=== PATIENT | female | born 1960 ===

== ENCOUNTER → 2020-10-06 08:47 | Outpatient (BNVA) | payer OTHER, SELFPAY | PROVIDERS: PCP Internal Medicine; Visit Provider Internal Medicine Cardiovascular Disease | DX: I49.3 Ventricular premature depolarization (principal); Z79.899 Other long term (current) drug therapy | CPT/HCPCS: 93005 ==

== ENCOUNTER 2020-10-15 13:31 | Outpatient (REF) | payer OTHER, SELFPAY ==
[2020-10-15 18:43] LABS: Estimated Average Glucose 157 mg/dL; Hemoglobin A1c % 7.1 %
== END 2020-10-15 13:32 | disposition home or self-care (01) ==
LOC: HO.MANLR 13:31
PROVIDERS: PCP Internal Medicine; Visit Provider Internal Medicine
DX: E03.9 Hypothyroidism, unspecified (principal); E11.9 Type 2 diabetes mellitus without complications
CPT/HCPCS: 83036

== ENCOUNTER 2020-11-09 12:16 | Emergency (ER) | payer OTHER, SELFPAY ==
[2020-11-09 12:19] VITALS: BP 177/88; PULSE 78; RESP 18; TEMP 36.6; O2SAT 99; BMI 27.9
--- NOTE | 2020-11-09 15:29 | ED_ITS ---
HPI - Abdominal Pain General Chief Complaint: Abdominal Pain Stated Complaint: abd pain Time Seen by Provider: 11/09/20 15:29 Source: patient Mode of arrival: ambulatory Limitations: no limitations History of Present Illness HPI narrative: yesterday she moved and felt a sharp pain. Today at work she rubbed against something and felt a sharp pain. 12 years ago had umbilical hernia MD elicited complaint: abdominal pain Onset (ago): day(s) Pain Consistency: constant Location: periumbilical and LLQ Severity: mild Exacerbating factors: movement Relieving factors: rest Related Data Home Medications Medication Instructions Recorded Confirmed aspirin 81 mg tablet,delayed 81 mg PO DAILY 10/06/20 10/06/20 release levothyroxine 50 mcg tablet 50 mcg PO DAILY 10/06/20 10/06/20 lisinopril 30 mg tablet 30 mg PO DAILY 10/06/20 10/06/20 metformin 1,000 mg tablet 1,000 mg PO BID 10/06/20 10/06/20 metoprolol succinate 50 mg 50 mg PO DAILY 10/06/20 10/06/20 tablet,extended release 24 hr omeprazole 20 mg capsule,delayed 20 mg PO DAILY 10/06/20 10/06/20 release simvastatin 40 mg tablet 40 mg PO BEDTIME 10/06/20 10/06/20 Allergies Allergy/AdvReac Type Severity Reaction Status Date / Time No Known Allergies Allergy Unverified 08/12/20 15:03 Review of Systems Constitutional: Reports no additional constitutional complaints Eyes: Reports no additional eye complaints Denies dizziness Cardiovascular: Reports no additional cardiovascular complaints Respiratory: Reports as per HPI Gastrointestinal: Reports no additional gastrointestinal complaints Genitourinary: Reports no additional female genitourinary complaints Musculoskeletal: Reports no additional musculoskeletal complaints Skin/Breast: Denies rash Reports system reviewed and no additional complaints, except as documented, Denies dizziness and Denies Sensory deficit (Neuro) Psychiatric: Denies anxiety Physical Exam Vital Signs: Vital Signs: Last Vital Signs Temp 97.9 F 11/09/20 12:19 Pulse 68 11/09/20 15:40 Resp 16 11/09/20 15:40 BP 154/71 H 11/09/20 15:40 Pulse Ox 98 11/09/20 15:40 Body Mass Index 27.9 Const: General: healthy appearing Nutritional Appearance: overweight Orientation/consciousness: oriented to person and patient oriented x3 Limitations: no limitations HENMT: Head: Yes normal to inspection Ears: external ears normal General nose exam: Normal external nose present Mouth: Normal oral and palatal mucosa present and oropharynx normal Throat: Yes posterior oropharynx normal Eyes: General: appearance normal, both eyes and all related structures Neck: Other: supple Neck: Yes normal visual inspection Chest: Chest palpation & inspection: normal inspection of the chest Resp: Auscultation: clear to auscultation bilaterally Cardio: Jugular venous distension: no JVD Rate: regular rate Rhythm: regular rhythm Heart sounds: S1 normal heart sound present and S2 normal heart sound present GI: Other: no evidence of umbilical hernia or left inguinal hernia Inspection: Yes normal to inspection Palpation (GI): Soft to palpation, nontender and No hepatosplenomegaly present Auscultation: normal bowel sounds : General: Yes no CVA tenderness Back/Spine/Pelvis: Back: no CVA tenderness Skin: General skin exam: no rashes or lesions noted Neuro: General: oriented to person and patient oriented x3 Cranial nerves: Yes CN's II-XII intact bilaterally Motor exam (neuro): 5/5 motor strength present throughout Sensory Exam: No Sensory deficit (Neuro) Extrem: General: Yes normal to inspection Psych: Appearance: grossly normal Course Course Course Narrative: impression is abdominal wall strain MDM - Abdominal Pain MDM Narrative Medical decision making narrative: history and physical most consistent with abdominal wall strain Differential Diagnosis Differential diagnosis: Likely abdominal pain and diverticulitis Differential diagnosis narrative:: umbilical hernia Discharge Plan Discharge Clinical Impression: Abdominal pain Qualifiers: Abdominal location: periumbilical Qualified Code(s): R10.33 - Periumbilical damon n Patient Disposition: Home, Self-Care Additional Instructions: rest, tylenol and motrin for abdominal wall strain Prescriptions: No Action omeprazole 20 mg capsule,delayed release(DR/EC) 20 mg PO DAILY RF: 0 levothyroxine 50 mcg tablet 50 mcg PO DAILY RF: 0 simvastatin 40 mg tablet 40 mg PO BEDTIME RF: 0 metformin 1,000 mg tablet 1,000 mg PO BID RF: 0 lisinopril 30 mg tablet 30 mg PO DAILY RF: 0 metoprolol succinate 50 mg tablet extended release 24 hr 50 mg PO DAILY RF: 0 aspirin [Adult Low Dose Aspirin] 81 mg tablet,delayed release (DR/EC) 81 mg PO DAILY RF: 0 Referrals: Chriss Mehta MD [Primary Care Provider] - 2 days Stand Alone Forms: Work/School Release [facility] Past Medical History Medical History (Updated 11/09/20 @ 16:02 by Antonio Lr MD) Hyperlipidemia Hypertension PVC (premature ventricular contraction) Surgical History (Updated 10/04/20 @ 08:42 by Laxmi Villanueva) H/O hernia repair H/O tubal ligation History of appendectomy Family History Family History (Updated 10/04/20 @ 08:43 by Laxmi Villanueva) Father No problems noted. Mother Diabetes CVD (cardiovascular disease) Social History Social History (Updated 10/06/20 @ 08:55 by Laxmi Villanueva) Smoking Status: Never smoker Use of substances other than those prescribed or required for medical reasons: No Advance Directives: No Advance Directives Information Provided: Yes
[2020-11-09 15:40] VITALS: BP 154/71; PULSE 68; RESP 16; O2SAT 98
== END 2020-11-09 16:23 | disposition home or self-care (01) ==
PROVIDERS: Emergency Provider Emergency Medicine; PCP Internal Medicine
DX: R10.33 Periumbilical pain (principal); R10.32 Left lower quadrant pain; I10 Essential (primary) hypertension; Z79.899 Other long term (current) drug therapy
CPT/HCPCS: 99283; 99284

== ENCOUNTER 2020-11-18 08:19 | Outpatient (REF) | payer OTHER, SELFPAY ==
--- NOTE | 2020-11-18 | US_ITS ---
EXAMINATION: US ABDOMEN COMPLETE CLINICAL INFORMATION: Left side pain to mid abdomen around the umbilicus. COMPARISON: CT abdomen and pelvis 05/30/2016. KUB 07/14/2015. TECHNIQUE: Real-time imaging of the abdominal viscera. FINDINGS: PANCREAS: Portions of pancreatic head and neck appear normal in size and echogenicity. There is no pancreatic ductal distention. Remainder of the pancreas obscured by bowel gas and not completely imaged. ABDOMINAL AORTA: The proximal, mid, and distal segments are normal in caliber. INFERIOR VENA CAVA: Visualized portions are normal. LIVER: The liver is borderline enlarged measuring approximately 19 cm in length. There is uniform increased hepatic parenchymal echogenicity consistent with hepatic steatosis. Liver surface is smooth. There is no focal hepatic parenchymal lesion or intrahepatic biliary ductal dilatation. GALLBLADDER: The gallbladder is distended normally. There is no wall thickening or pericholecystic fluid. A mobile stone is present in the lumen measuring approximately 1.8 cm in diameter. Sonographic negative Baker's sign. COMMON BILE DUCT: Normal in caliber measuring 0.5 cm in diameter. RIGHT KIDNEY: There is a nonobstructing calculus interpolar region measuring 0.6 cm and with twinkling artifact on color Doppler. No hydronephrosis or focal parenchymal lesions. The kidney measures 12.2 cm in maximum dimension. LEFT KIDNEY: Normal. No hydronephrosis. No renal calculi or focal parenchymal lesions. The kidney measures 11.1 cm in maximum dimension. SPLEEN: Normal. The spleen measures 8.7 cm in maximum dimension. FREE FLUID: None. US/US abdomen complete IMPRESSION: 1. Gallstone just under 2 cm. No gallbladder wall thickening or ductal dilatation. 2. Nonobstructing right renal calculus 0.6 cm. No hydronephrosis.
== END 2020-11-18 08:20 | disposition home or self-care (01) ==
LOC: HO.US 08:19
PROVIDERS: Visit Provider Physician Assistant
DX: R10.9 Unspecified abdominal pain (principal)
CPT/HCPCS: 76700

== ENCOUNTER 2020-12-08 14:52 | Outpatient (REF) | payer OTHER, SELFPAY ==
[2020-12-08 17:50] LABS: Estimated Average Glucose 151 mg/dL; Hemoglobin A1c % 6.9 %
[2020-12-08 18:07] LABS: Alanine Aminotransferase 26 U/L (0-31); Albumin Level 4.2 g/dL (3.5-5.0); Alkaline Phosphatase 82 U/L (39-117); Anion Gap 13 (12-20); Aspartate Amino Transferase 26 U/L (5-31); Bilirubin Total 0.5 mg/dL (0.0-1.0); Blood Urea Nitrogen 11 mg/dL (9-16); Calcium 9.2 mg/dL (8.4-10.2); Carbon Dioxide 27 mmol/L (22-29); Chloride 106 mmol/L (96-108); Estimated Glomerular Filt Rate > 60; Glucose Random 147 mg/dL (60-115); Potassium 4.2 mmol/l (3.3-5.1); Sodium 142 mmol/L (135-145); Total Protein 7.1 g/dL (6.5-8.0)
[2020-12-08 18:27] LABS: T4 Thyroxine 10.1 ug/dL (4.5-12.0); Thyroid Stimulating Hormone 0.98 uIU/mL (0.32-4.0)
== END 2020-12-08 14:53 | disposition home or self-care (01) ==
LOC: HO.MANLDS 14:52
PROVIDERS: PCP Internal Medicine; Visit Provider Internal Medicine
DX: E11.9 Type 2 diabetes mellitus without complications (principal); E03.9 Hypothyroidism, unspecified
CPT/HCPCS: 36415; 80053; 83036; 84436; 84443

== ENCOUNTER 2021-01-19 11:59 | Outpatient (REF) | payer OTHER, SELFPAY ==
[2021-01-19 16:16] LABS: Estimated Average Glucose 148 mg/dL; Hemoglobin A1c % 6.8 %
== END 2021-01-19 12:00 | disposition home or self-care (01) ==
LOC: HO.MANLR 11:59
PROVIDERS: PCP Internal Medicine; Visit Provider Internal Medicine
DX: E03.9 Hypothyroidism, unspecified (principal); E11.9 Type 2 diabetes mellitus without complications
CPT/HCPCS: 36415; 83036

== ENCOUNTER 2021-04-20 09:54 | Emergency (ER) | payer OTHER, SELFPAY ==
--- NOTE | ~2021-04-20 | XR_ITS ---
EXAMINATION: XR LUMBAR SPINE CLINICAL INFORMATION: Low back pain. Right hip pain. COMPARISON: Lumbar spine 10/23/2018. TECHNIQUE: 3 views lumbar spine. 2 views right hip. FINDINGS: Lumbar Spine: There is normal lumbar lordosis. The vertebral heights and alignment is normal. There is mild loss of L4-L5 disc height with posterior spondylosis. No visible acute fracture, dislocation or lytic process. The paravertebral soft tissues are normal. Incidental note is made of 2 mm radiopaque renal calculus midpole right kidney. Mild constipation. Right Hip: There is no visible acute fracture, dislocation or subluxation seen. No bony erosive changes. The soft tissues are normal. XR/XR hip RT min 2V IMPRESSION: Unremarkable right hip exam. Mild degenerative disc changes with posterior spondylosis at L4-L5 disc level. No acute fracture or lytic process. Incidental finding of a 2 mm radiopaque calculus midpole right kidney.
--- NOTE | ~2021-04-20 | XR_ITS ---
EXAMINATION: XR LUMBAR SPINE CLINICAL INFORMATION: Low back pain. Right hip pain. COMPARISON: Lumbar spine 10/23/2018. TECHNIQUE: 3 views lumbar spine. 2 views right hip. FINDINGS: Lumbar Spine: There is normal lumbar lordosis. The vertebral heights and alignment is normal. There is mild loss of L4-L5 disc height with posterior spondylosis. No visible acute fracture, dislocation or lytic process. The paravertebral soft tissues are normal. Incidental note is made of 2 mm radiopaque renal calculus midpole right kidney. Mild constipation. Right Hip: There is no visible acute fracture, dislocation or subluxation seen. No bony erosive changes. The soft tissues are normal. XR/XR lumbar spine 2-3V IMPRESSION: Unremarkable right hip exam. Mild degenerative disc changes with posterior spondylosis at L4-L5 disc level. No acute fracture or lytic process. Incidental finding of a 2 mm radiopaque calculus midpole right kidney.
[2021-04-20 10:01] VITALS: BP 180/90; PULSE 74; RESP 18; TEMP 36.7; O2SAT 96; BMI 26.6
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
[2021-04-20 10:29] VITALS: BP 125/79; RESP 17
== END 2021-04-20 11:48 | disposition home or self-care (01) ==
PROVIDERS: Emergency Provider Emergency Medicine; PCP Internal Medicine
DX: S39.012A Strain of muscle, fascia and tendon of lower back, initial encounter (principal); M25.551 Pain in right hip; X58.XXXA Exposure to other specified factors, initial encounter; Y93.9 Activity, unspecified; Y92.9 Unspecified place or not applicable; Y99.0 Civilian activity done for income or pay; Z79.899 Other long term (current) drug therapy
CPT/HCPCS: 72100; 73502; 99283

== ENCOUNTER → 2021-04-26 10:32 | Outpatient (BNVA) | payer OTHER, SELFPAY | PROVIDERS: PCP Internal Medicine; Visit Provider Internal Medicine | DX: S39.012D Strain of muscle, fascia and tendon of lower back, subsequent encounter (principal); W03.XXXD Other fall on same level due to collision with another person, subsequent encounter | CPT/HCPCS: 99203 ==

== ENCOUNTER → 2021-05-04 09:50 | Outpatient (BNVA) | payer OTHER, SELFPAY | PROVIDERS: PCP Internal Medicine; Visit Provider Physician Assistant | DX: S39.012D Strain of muscle, fascia and tendon of lower back, subsequent encounter (principal); X58.XXXD Exposure to other specified factors, subsequent encounter; M46.1 Sacroiliitis, not elsewhere classified | CPT/HCPCS: 99213 ==

== ENCOUNTER 2021-05-06 08:53 | Outpatient (REF) | payer OTHER, SELFPAY ==
--- NOTE | ~2021-05-06 | MM_ITS ---
EXAMINATION: MM SCREENING DIGITAL BREAST TOMOSYNTHESIS, BILATERAL CLINICAL INFORMATION: Screening. Asymptomatic. Remote reduction mammoplasty 2000. The lifetime risk of breast cancer based on the Tyrer-Cuzick Model is 5%. COMPARISON: Mammography: 01/30/2020, 01/24/2019, 10/27/2017 TECHNIQUE: Digital breast tomosynthesis is performed in both the craniocaudal and mediolateral oblique views along with computer-aided detection (CAD). Synthesized 2D images are generated from the tomosynthesis. FINDINGS: There are scattered areas of fibroglandular density (ACR BI-RADS breast composition Category b). Parenchymal pattern is similar to prior studies. There is minor stable scarring and scattered benign calcifications consistent with the prior reduction mammoplasty. There is no interval mass or architectural abnormality or abnormal calcifications. Biopsy clip marker again noted central anterior 6:00 right breast. The axilla and skin contours are unremarkable. MM/MM tomosynthesis screening BI IMPRESSION: No significant changes from prior exams. ASSESSMENT: BI-RADS 2: Benign RECOMMENDATION: Routine annual mammography screening. This patient's information was entered into a reminder system with a target due date for their next mammogram.
== END 2021-05-06 08:54 | disposition home or self-care (01) ==
LOC: HO.MAMMO 08:53
PROVIDERS: PCP Internal Medicine; Visit Provider Internal Medicine
DX: Z12.31 Encounter for screening mammogram for malignant neoplasm of breast (principal)
CPT/HCPCS: 77063; 77067

== ENCOUNTER 2021-05-11 09:42 | Outpatient (REF) | payer OTHER, SELFPAY ==
[2021-05-11 11:21] LABS: Estimated Average Glucose 154 mg/dL
[2021-05-11 12:00] LABS: Alanine Aminotransferase 29 U/L (0-31); Albumin Level 4.1 g/dL (3.5-5.0); Alkaline Phosphatase 85 U/L (39-117); Anion Gap 13 (12-20); Aspartate Amino Transferase 39 U/L (5-31); Bilirubin Total 0.7 mg/dL (0.0-1.0); Blood Urea Nitrogen 11 mg/dL (9-16); Calcium 9.5 mg/dL (8.4-10.2); Carbon Dioxide 25 mmol/L (22-29); Chloride 108 mmol/L (96-108); Cholesterol 162 mg/dL; Estimated Glomerular Filt Rate > 60; Glucose Fasting 143 mg/dL (60-99); HDL Cholesterol 43 mg/dL; LDL Cholesterol Calculated 86 mg/dl; Potassium 4.1 mmol/L (3.3-5.1); Sodium 142 mmol/L (135-145); Total Protein 7.2 g/dL (6.5-8.0); Triglycerides 166 mg/dL
[2021-05-11 12:23] LABS: Free T4 (Free Thyroxine) 1.26 ng/dL (0.71-1.85)
== END 2021-05-11 09:43 | disposition home or self-care (01) ==
LOC: HO.MANLDS 09:42
PROVIDERS: PCP Internal Medicine; Visit Provider Internal Medicine
DX: E11.9 Type 2 diabetes mellitus without complications (principal); E03.9 Hypothyroidism, unspecified
CPT/HCPCS: 36415; 80053; 80061; 83036; 84439; 84443

== ENCOUNTER 2021-05-23 08:00 | Outpatient (RCR) | payer OTHER, SELFPAY ==
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
--- NOTE | 2021-05-25 12:09 | MHC.PT.DC ---
[facility] [place] [facility] [place] [facility] [place] [facility] [address] Indira Morales [address] [phone] F: [phone] F: [phone] F: [phone] F: [phone] Physical Therapy Discharge Report Diagnosis: LUMBAR/SI STRAIN Date of Surgery: NA Date of Evaluation: 04/29/21 Date of Discharge: 05/25/21 Treatments to Date: 6 Cancellations to Date: No Shows to Date: Discharge Status: Achieved Goals Improved Function Independent with HEP Patient Elected to Stop Discharge Summary: AT LAST SESSION, Pt REPORTS CANCELLED HER LAST 2 SCHEDULED APPTS BECAUSE SHE IS FEELING BETTER AND BACK TO FULL DUTY. HAS MET PT GOALS (DID NOT CHECK TRUNK FLEX BUT Pt REPORTS SHE IS ABLE TO BEND MORE EASILY) MOD OSWESTRY Electronically signed by: CHRISSIE ELDER PT Please sign and return to therapist. Thank you for your referral.
== END 2021-05-25 12:40 | disposition home or self-care (01) ==
LOC: HO.PT 08:00
PROVIDERS: Visit Provider Physician Assistant
DX: S39.012D Strain of muscle, fascia and tendon of lower back, subsequent encounter (principal)
CPT/HCPCS: 97110; 97140; 97161; 97535

== ENCOUNTER 2021-05-28 11:23 | Emergency (ER) | payer OTHER, SELFPAY ==
[2021-05-28 12:27] VITALS: BP 138/77; PULSE 70; RESP 18; TEMP 36.2; O2SAT 100; BMI 27.9
--- NOTE | 2021-05-28 13:06 | ED_ITS ---
HPI - Back Pain/Injury General Chief Complaint: Back Pain/Injury Stated Complaint: back pain Time Seen by Provider: 05/28/21 13:06 History of Present Illness HPI Narrative: Patient complains of right-sided low back pain radiating to right leg, also complains of a so mild burning with urination for 2 days, she has had back pain on the right side for a month, but over past several days pain is now radiating down the leg Review of symptoms positive for back pain radiating down right leg with some dysuria Negatives are no fever no chills no dizziness no weakness no fainting no feeling faint no nausea vomiting or diarrhea no abdominal pain no pelvic pain no skin rash no incontinence no loss of sensation no muscle weakness Related Data Home Medications Medication Instructions Recorded Confirmed aspirin 81 mg tablet,delayed 81 mg PO DAILY 10/06/20 10/06/20 release levothyroxine 50 mcg tablet 50 mcg PO DAILY 10/06/20 10/06/20 lisinopril 30 mg tablet 30 mg PO DAILY 10/06/20 10/06/20 metformin 1,000 mg tablet 1,000 mg PO BID 10/06/20 10/06/20 metoprolol succinate 50 mg 50 mg PO DAILY 10/06/20 10/06/20 tablet,extended release 24 hr omeprazole 20 mg capsule,delayed 20 mg PO DAILY 10/06/20 10/06/20 release simvastatin 40 mg tablet 40 mg PO BEDTIME 10/06/20 10/06/20 Previous Rx's Medication Instructions Recorded cyclobenzaprine 10 mg PO TID PRN #10 tab 04/20/21 lidocaine [Lidoderm] 1 patch TOPICAL DAILY #15 ea 04/20/21 naproxen 500 mg PO BID PRN #20 tab 04/20/21 cyclobenzaprine 5 mg PO TID PRN #14 tab 05/28/21 lidocaine 1 patch TOPICAL DAILY PRN #15 ea 05/28/21 naproxen [Naprosyn] 500 mg PO BID PRN #20 tab 05/28/21 nitrofurantoin monohyd/m-cryst 100 mg PO Q12H 5 Days #10 cap 05/28/21 [Macrobid] oxycodone 5 mg PO Q6H PRN #10 tab 05/29/21 Allergies Allergy/AdvReac Type Severity Reaction Status Date / Time No Known Allergies Allergy Verified 05/29/21 17:21 [facility] Past Medical History Source: nursing notes reviewed Medical History Hyperlipidemia Hypertension PVC (premature ventricular contraction) Surgical History H/O hernia repair H/O tubal ligation History of appendectomy Family History Family History Father No problems noted. Mother Diabetes CVD (cardiovascular disease) Social History Social History Alcohol intake: never Physical Exam Vital Signs: Vital Signs: Last Vital Signs Temp 97.1 F 05/28/21 12:27 Pulse 70 05/28/21 12:27 Resp 18 05/28/21 12:27 BP 138/77 05/28/21 12:27 Pulse Ox 100 05/28/21 12:27 Body Mass Index 27.9 General appearance no acute distress Head is normocephalic atraumatic Neck is supple Respiratory no distress Abdomen is soft and nontender The back exam there is right lower lumbar tenderness, the skin is normal there is no CVA tenderness, there is no focal bony tenderness there is no redness rash or wound, pain is reproduced with movement Extremities full range of motion x4 Neuro no focal motor or sensory deficit MDM - Back Pain/Injury MDM Narrative Medical decision making narrative: Patient with sciatica on right side in symptoms of musculoskeletal back pain, with the complaint also of some mild dysuria with no evidence of pyelonephritis or systemic illness had a UA that is likely negative but it did show some bacteria in a contaminated specimen so patient was treated for possible urinary tract infection with Macrobid and discharged Lab Data Labs: Lab Results 05/28/21 Range/Units 13:16 Urine Color YELLOW Urine Appearance HAZY Urine pH 6.0 (5.0-8.0) Ur Specific [place] <= 1.005 (1.005-1.025) Urine Protein NEG (NEG-TRACE) MG/DL Urine Glucose (UA) NEG (NEG) MG/DL Urine Ketones NEG (NEG) MG/DL Urine Blood NEG (NEG) Urine Nitrite NEG (NEG) Ur Leukocyte Esterase 2+ H (NEG) Urine RBC 0 (0) /HPF Urine WBC 1-4 (0-4) /HPF Ur Squamous Epith Cells 2+ /LPF Urine Bacteria TRACE /LPF Discharge Plan Discharge Clinical Impression: Back pain, UTI (urinary tract infection) Patient Disposition: Home, Self-Care Additional Instructions: pain is most likely from pinched nerve in her back Urine specimen showed possibility of urinary tract infection so we are treating with Macrobid antibiotic Follow with primary doctor Return any time any change or worse condition Prescriptions: New nitrofurantoin monohyd/m-cryst [Macrobid] 100 mg capsule 100 mg PO Q12H 5 Days Qty: 10 RF: 0 naproxen [Naprosyn] 500 mg tablet 500 mg PO BID PRN (Reason: pain) Qty: 20 RF: 0 cyclobenzaprine 5 mg tablet 5 mg PO TID PRN (Reason: muscle spasm) Qty: 14 RF: 0 lidocaine 5 % adhesive patch,medicated 1 patch topical DAILY PRN (Reason: pain in back) Qty: 15 RF: 0 No Action naproxen 500 mg tablet 500 mg PO BID PRN (Reason: pain) Qty: 20 RF: 0 cyclobenzaprine 10 mg tablet 10 mg PO TID PRN (Reason: muscle spasm) Qty: 10 RF: 0 lidocaine [Lidoderm] 5 % adhesive patch,medicated 1 patch topical DAILY Qty: 15 RF: 0 oxycodone 5 mg tablet 5 mg PO Q6H PRN (Reason: pain) Qty: 10 RF: 0 omeprazole 20 mg capsule,delayed release(DR/EC) 20 mg PO DAILY RF: 0 levothyroxine 50 mcg tablet 50 mcg PO DAILY RF: 0 simvastatin 40 mg tablet 40 mg PO BEDTIME RF: 0 metformin 1,000 mg tablet 1,000 mg PO BID RF: 0 lisinopril 30 mg tablet 30 mg PO DAILY RF: 0 metoprolol succinate 50 mg tablet extended release 24 hr 50 mg PO DAILY RF: 0 aspirin [Adult Low Dose Aspirin] 81 mg tablet,delayed release (DR/EC) 81 mg PO DAILY RF: 0 Stand Alone Forms: Work/School Release Interventions: ED Discharge Assessment Last Done: 05/28/21 14:31 Discharge Date/Time: 05/28/21 14:32
[2021-05-28 13:23] LABS: Glucose Urine UA NEG (NEG); Leukocyte Esterase Urine 2+ (NEG); Nitrite Urine NEG (NEG); Specific Gravity - Urine <= 1.005 (1.005-1.025); UACC Culture Trigger YES; Urine Blood NEG (NEG); Urine Ketones NEG (NEG); Urine Protein NEG (NEG-TRACE)
[2021-05-28 13:24] LABS: Appearance Urine HAZY; Color Urine YELLOW
[2021-05-28 13:34] LABS: Bacteria Urine TRACE /LPF; RBC Urine 0 /HPF (0); Squamous Epithelial Cell Urine 2+ /LPF
[2021-05-28] MEDS: Ketorolac Tromethamine 30 MG/ML VIAL IM (14:28)
== END 2021-05-28 14:32 | disposition home or self-care (01) ==
PROVIDERS: Physician Assistant Medical; Emergency Provider Emergency Medicine Emergency Medical Services; PCP Internal Medicine
DX: M54.9 Dorsalgia, unspecified (principal); N39.0 Urinary tract infection, site not specified; I10 Essential (primary) hypertension
CPT/HCPCS: 81001; 81003; 87086; 96372; 99284; J1885

== ENCOUNTER 2021-05-29 17:16 | Emergency (ER) | payer OTHER, SELFPAY ==
--- NOTE | ~2021-05-29 | CT_ITS ---
EXAMINATION: CT LUMBAR SPINE WITHOUT CONTRAST CLINICAL INFORMATION: Thigh pain, reports thigh paresthesias. Rule out compression fracture versus disc. COMPARISON: None TECHNIQUE: Axial imaging. Sagittal and coronal reconstructions. This CT examination was performed using dose optimization techniques as appropriate, variously including the following: *Automated exposure control *Adjustment of mA and/or kV according to patient size (this includes techniques or standardized protocols for targeted exams where dose is matched to indication/reason for exam; i.e. extremities or head) *Use of iterative reconstruction technique DLP; 456 mGy-cm FINDINGS: There is normal posterior alignment without significant subluxation. Vertebral body heights are maintained. No acute fracture is seen. Disc spaces are maintained. There is mild endplate spurring at the L1, L2 vertebral bodies. Respiratory motion artifact limits evaluation of the retroperitoneum/abdomen. 2 mm right midpole renal calculus. Limited evaluation of the soft tissue/disc on CT. L1-L2: No obvious disc bulge is appreciated. L2-L3: Question posterior disc bulge in bilateral foraminal regions. No significant central canal stenosis is seen. L3-L4: Question posterior disc bulge in bilateral foraminal region. No significant central canal stenosis evident. L4-L5: Question posterior disc bulge, along with posterior endplate spurring of L4. L5-S1: Small ossification along the posterior aspect of the disc, with question of broad-based disc bulge. CT/CT lumbar spine wo con IMPRESSION: 1. No CT evidence of acute fracture. 2. Limited evaluation of the soft tissue/disc on CT. Question disc bulge at multiple levels, detailed level by level. This can be further evaluated with MRI, as clinically warranted.
[2021-05-29 17:21] VITALS: BP 181/87; PULSE 76; RESP 18; TEMP 37; O2SAT 100; BMI 27.9
--- NOTE | 2021-05-29 17:58 | ED_ITS ---
HPI - Back Pain/Injury General Chief Complaint: Back Pain/Injury Stated Complaint: Back pain Time Seen by Provider: 05/29/21 17:42 Source: patient Mode of arrival: ambulatory Limitations: no limitations History of Present Illness HPI Narrative: 61-year-old female here with complaints of right lower back pain since yesterday. The patient tells she was seen here yesterday for the same and was diagnosed with the UTI. She was sent home on Macrobid and given NSAIDs and muscle relaxants. She tells me she is taking his medications with continued pain. She does have some mild dysuria but denies any urgency, frequency, hematuria, fevers, chills, nausea, vomiting. No abdominal pain. Pain radiates from the right lower back to the right anterior thigh and is described as burning. No incontinence. Patient is ambulatory MD elicited complaint: back pain Related Data Home Medications Medication Instructions Recorded Confirmed aspirin 81 mg tablet,delayed 81 mg PO DAILY 10/06/20 10/06/20 release levothyroxine 50 mcg tablet 50 mcg PO DAILY 10/06/20 10/06/20 lisinopril 30 mg tablet 30 mg PO DAILY 10/06/20 10/06/20 metformin 1,000 mg tablet 1,000 mg PO BID 10/06/20 10/06/20 metoprolol succinate 50 mg 50 mg PO DAILY 10/06/20 10/06/20 tablet,extended release 24 hr omeprazole 20 mg capsule,delayed 20 mg PO DAILY 10/06/20 10/06/20 release simvastatin 40 mg tablet 40 mg PO BEDTIME 10/06/20 10/06/20 Previous Rx's Medication Instructions Recorded cyclobenzaprine 10 mg PO TID PRN #10 tab 04/20/21 lidocaine [Lidoderm] 1 patch TOPICAL DAILY #15 ea 04/20/21 naproxen 500 mg PO BID PRN #20 tab 04/20/21 cyclobenzaprine 5 mg PO TID PRN #14 tab 05/28/21 lidocaine 1 patch TOPICAL DAILY PRN #15 ea 05/28/21 naproxen [Naprosyn] 500 mg PO BID PRN #20 tab 05/28/21 nitrofurantoin monohyd/m-cryst 100 mg PO Q12H 5 Days #10 cap 05/28/21 [Macrobid] oxycodone 5 mg PO Q6H PRN #10 tab 05/29/21 Allergies Allergy/AdvReac Type Severity Reaction Status Date / Time No Known Allergies Allergy Verified 05/29/21 17:21 Review of Systems Review of Systems: Yes all other systems are reviewed and are negative Constitutional: Constitutional: Reports no additional constitutional complaints, Denies body ache(s), Denies chills, Denies fever(s), Denies hea dache(s) and Denies weakness Eyes: Eyes: Reports no additional eye complaints and Denies change in vision ENT: Reports system reviewed and no additional complaints, except as documented, Denies dizziness, Denies headache(s), Denies nasal congestion, Denies nasal discharge and Denies neck pain Cardiovascular: Cardiovascular: Reports no additional cardiovascular complaints, Denies chest pain, Denies leg edema and Denies dyspnea Respiratory: Respiratory: Reports no additional respiratory complaints, Denies cough and Denies dyspnea Gastrointestinal: Gastrointestinal: Reports no additional gastrointestinal complaints, Denies abdominal pain, Denies diarrhea, Denies nausea and Denies vomiting Genitourinary: Genitourinary: Reports no additional female genitourinary comp laints, Denies hematuria, Reports dysuria, Denies flank pain, Denies urinary incontinence, Denies urinary hesitancy and Denies urinary urgency Musculoskeletal: Musculoskeletal: Reports no additional musculoskeletal complaints, Reports back pain, Denies arthralgias, Denies joint swelling, Denies neck pain, Denies numbness and Denies tingling Integumentary/Breasts: Skin/Breast: Reports system reviewed and no additional complaints, except as docu and Denies rash Neurologic: Reports system reviewed and no additional complaints, except as documented, Denies Abnormal speech present, Denies dizziness, Denies headache(s), Denies numbness, Denies tingling and Denies weakness [facility] Past Medical History Attestation statement: The following information was validated with the patient. Source: old records reviewed and nursing notes reviewed Medical History Hyperlipidemia Hypertension PVC (premature ventricular contraction) Surgical History H/O hernia repair H/O tubal ligation History of appendectomy Family History Family History Father No problems noted. Mother Diabetes CVD (cardiovascular disease) Social History Social History Alcohol intake: never Smoked in Last 30 Days: No Use of substances other than those prescribed or required for medical reasons: No Advance Directives: No Advance Directives Information Provided: Yes Physical Exam Vital Signs: Vital Signs: Last Vital Signs Temp 98.6 F 05/29/21 17:21 Pulse 76 05/29/21 17:21 Resp 18 05/29/21 17:21 BP 181/87 H 05/29/21 17:21 Pulse Ox 100 05/29/21 17:21 Body Mass Index 27.9 Const: General: cooperative, healthy appearing, comfortable and no acute distress Orientation/consciousness: patient oriented x3 Limitations: no limitations HENMT: Head: Yes normal to inspection Ears: hearing grossly normal bilaterally General nose exam: Normal external nose present Face and sinus: Yes normal facial exam Mouth: Normal oral and palatal mucosa present Throat: Yes posterior oropharynx normal Eyes: General: appearance normal, both eyes and all related structures Pupils: Equal, round and reactive pupils present Neck: Neck: Yes normal visual inspection Chest: Chest palpation & inspection: normal inspection of the chest Resp: Effort & Inspection: normal respiratory effort Auscultation: clear to auscultation bilaterally Cardio: Rate: regular rate Rhythm: regular rhythm Peripheral pulses: Peripheral pulses 2+ throughout GI: Inspection: Yes normal to inspection Palpation (GI): Soft to palpation and nontender Auscultation: normal bowel sounds : General: Yes no CVA tenderness Back/Spine/Pelvis: Other: pain with straight leg raise of the right leg Back: no CVA tenderness Thoracic/Lumbar Spine: thoracic and lumbar spine normal to inspection Sacroiliac joints: on the right tender to palpation, by compression of iliac crest and by passive hyperextension of lower ext Skin: General skin exam: no rashes or lesions noted Neuro: General: patient oriented x3, no focal motor deficits and normal sensation to monofilament Cranial nerves: Yes CN's II-XII intact bilaterally, Yes Equal, round and reactive pupils present, Yes Bilaterally intact EOM present, Yes Nystagmus not present, Yes Normal facial strength present, Yes Midline tongue present and Yes Normal gag reflex present Cognition (Neuro): normal cognition Speech: No Abnormal speech present Gait exam (Neuro): Normal gait present Motor exam (neuro): 5/5 motor strength present throughout Sensory Exam: Normal double simultaneous stimulation for sensation Deep tendon reflexes (DTR's): Right patellar reflex intensity grade: 2+ and Left p atellar reflex intensity grade: 2+ Extrem: General: Yes normal to inspection Course Course Course Narrative: 61-year-old female here with complaints of continued right lower back pain greater than 24 hours despite starting antibiotics for presumed UTI and taking NSAIDs and muscle relaxants. On exam the patient has right lumbar tenderness over the right SI joint with referred pain in the right anterior thigh. Worsened with straight leg raise. No midline tenderness, step-offs or deformities. Reflexes are intact. urine culture reviewed from yesterday and negative. Will repeat UA, provide analgesia. -UA negative. No neuro deficits or red flag symptoms. Patient ambulatory. Will check labs, CT lumbar spine. . No CT evidence of acute fracture. 2. Limited evaluation of the soft tissue/disc on CT. Question disc bulge at multiple levels, detailed level by level. This can be further evaluated with MRI, as clinically warranted. likely bulging disc of L3-L4 based on dermatome. Pain is improved with Toradol and oxycodone here. Patient is ambulatory to the bathroom with no assistance. She tells me in January of this year she had a work-related back injury and followed up with [facility]. She did complete physical therapy on May 06 and was feeling improved until this most recent pain. No new reports of a new injury at work. Will have her follow up with [facility] however reviewed worrisome signs and symptoms such as incontinence, progressive weakness or paresthesias. And when to return to the emergency department. Comfortable discharge home. MDM - Back Pain/Injury Differential Diagnosis Differential diagnosis: Likely lumbar radiculopathy, strain of lumbar region, renal colic and pyelonephritis Medical Records Attestation: I reviewed the patient's medical records. Lab Data Attestation: I reviewed the patient's lab results. Result diagrams: 05/29/21 18:31 05/29/21 18:31 Labs: Lab Results 05/29/21 05/29/21 05/29/21 Range/Units 18:02 18:31 18:31 WBC 9.5 (4.8-10.8) X10*3/uL RBC 4.51 (4.20-5.50) X10*6/uL Hgb 13.8 (12.0-16.0) g/dl Hct 41.5 (37-47) % MCV 92.0 (80-98) fL MCH 30.6 (27.0-33.0) pg MCHC 33.3 (31.0-35.0) g/dl RDW 12.7 (11.0-16.0) % Plt Count 253 (160-400) X10*3/uL MPV 11.1 (9.4-12.3) fL Immature Gran % (Auto) 0.2 (0.0-0.4) % Neut % (Auto) 62.1 (45-73) % Lymph % (Auto) 29.9 (20-40) % [place] % (Auto) 6.1 (2-11) % Eos % (Auto) 1.2 (0-4) % Baso % (Auto) 0.5 (0-2) % Lymph # (Auto) 2.8 (1.2-4.9) X10*3/uL [place] # (Auto) 0.6 (0.1-1.2) X10*3/uL Eos # (Auto) 0.1 (0.0-0.4) X10*3/uL Baso # (Auto) 0.1 (0.0-0.2) X10*3/uL Abs Immat Gran (auto) 0.02 (0.00-0.03) X10*3/uL Absolute Neuts (auto) 5.9 (2.0-8.3) X10*3/uL Absolute Nucleated RBC 0.000 (0.0-0.012) X10*3/uL Nucleated RBC % (auto) 0.0 (0.0-0.2) /100WBC Sodium 143 (135-145) mmol/L Potassium 4.3 (3.3-5.1) mmol/L Chloride 108 (96-108) mmol/L Carbon Dioxide 23 (22-29) mmol/L Anion Gap 16 (12-20) BUN 10 (9-16) mg/dL Creatinine 0.77 (0.5-1.4) mg/dL Estim Creat Clear Calc 80.3 Estimated GFR > 60 Random Glucose 111 (60-115) mg/dL Calcium 10.2 D (8.4-10.2) mg/dL Urine Color YELLOW Urine Appearance CLEAR Urine pH 6.0 (5.0-8.0) Ur Specific [place] 1.025 (1.005-1.025) Urine Protein NEG (NEG-TRACE) MG/DL Urine Glucose (UA) NEG (NEG) MG/DL Urine Ketones NEG (NEG) MG/DL Urine Blood NEG (NEG) Urine Nitrite NEG (NEG) Ur Leukocyte Esterase NEG (NEG) Discharge Plan Discharge Clinical Impression: Strain of lumbar region Patient Disposition: Home, Self-Care Instructions: Low Back Strain (ED), Lower Back Exercises (ED), Core Strengthening Exercises (ED) Additional Instructions: heat or ice gentle stretching follow-up with your primary care doctor on Sunday no heavy lifting or bending Continue flexeril, naproxen, lidoderm patches. You may take the oxycodone for stronger pain unrelieved with these meds. Your CT scan shows multiple bulging discs in your lumbar spine. Follow-up with [facility] Sunday. Prescriptions: New oxycodone 5 mg tablet 5 mg PO Q6H PRN (Reason: pain) Qty: 10 RF: 0 No Action naproxen 500 mg tablet 500 mg PO BID PRN (Reason: pain) Qty: 20 RF: 0 cyclobenzaprine 10 mg tablet 10 mg PO TID PRN (Reason: muscle spasm) Qty: 10 RF: 0 lidocaine [Lidoderm] 5 % adhesive patch,medicated 1 patch topical DAILY Qty: 15 RF: 0 nitrofurantoin monohyd/m-cryst [Macrobid] 100 mg capsule 100 mg PO Q12H 5 Days Qty: 10 RF: 0 naproxen [Naprosyn] 500 mg tablet 500 mg PO BID PRN (Reason: pain) Qty: 20 RF: 0 cyclobenzaprine 5 mg tablet 5 mg PO TID PRN (Reason: muscle spasm) Qty: 14 RF: 0 lidocaine 5 % adhesive patch,medicated 1 patch topical DAILY PRN (Reason: pain in back) Qty: 15 RF: 0 omeprazole 20 mg capsule,delayed release(DR/EC) 20 mg PO DAILY RF: 0 levothyroxine 50 mcg tablet 50 mcg PO DAILY RF: 0 simvastatin 40 mg tablet 40 mg PO BEDTIME RF: 0 metformin 1,000 mg tablet 1,000 mg PO BID RF: 0 lisinopril 30 mg tablet 30 mg PO DAILY RF: 0 metoprolol succinate 50 mg tablet extended release 24 hr 50 mg PO DAILY RF: 0 aspirin [Adult Low Dose Aspirin] 81 mg tablet,delayed release (DR/EC) 81 mg PO DAILY RF: 0 Referrals: Chriss Mehta MD [Primary Care Provider] - 2 days Stand Alone Forms: Work/School Release
[2021-05-29 18:07] LABS: Glucose Urine UA NEG (NEG); Leukocyte Esterase Urine NEG (NEG); Nitrite Urine NEG (NEG); Specific Gravity - Urine 1.025 (1.005-1.025); Urine Blood NEG (NEG); Urine Ketones NEG (NEG); Urine Protein NEG (NEG-TRACE)
[2021-05-29 18:08] LABS: Appearance Urine CLEAR; Color Urine YELLOW
[2021-05-29] MEDS: Ketorolac Tromethamine 60 MG/2 ML VIAL IM (18:19)
[2021-05-29] MEDS: oxyCODONE HCl Immed Release 5 MG TABLET PO (18:20)
[2021-05-29 18:35] LABS: MANUAL DIFF FLAG NO
[2021-05-29 18:37] LABS: Basophils Absolute Auto 0.1 X10*3/uL (0.0-0.2); Basophils Percent Auto 0.5 % (0-2); Eosinophils Absolute Auto 0.1 X10*3/uL (0.0-0.4); Eosinophils Percent Auto 1.2 % (0-4); Hematocrit 41.5 % (37-47); Hemoglobin 13.8 g/dl (12.0-16.0); Imm Gran Abs Auto 0.02 X10*3/uL (0.00-0.03); Imm Gran Pct Auto 0.2 % (0.0-0.4); Lymphocytes Absolute Auto 2.8 X10*3/uL (1.2-4.9); Lymphocytes Percent Auto 29.9 % (20-40); Mean Corpuscular HGB Conc 33.3 g/dl (31.0-35.0); Mean Corpuscular Hemoglobin 30.6 pg (27.0-33.0); Mean Platelet Volume 11.1 fL (9.4-12.3); Monocytes Absolute Auto 0.6 X10*3/uL (0.1-1.2); Monocytes Percent Auto 6.1 % (2-11); Neutrophils Absolute Auto 5.9 X10*3/uL (2.0-8.3); Neutrophils Percent Auto 62.1 % (45-73); Platelet Count 253 X10*3/uL (160-400); Red Blood Count 4.51 X10*6/uL (4.20-5.50); Red Cell Distribution Width 12.7 % (11.0-16.0); White Blood Count 9.5 X10*3/uL (4.8-10.8)
[2021-05-29 19:09] LABS: Anion Gap 16 (12-20); Blood Urea Nitrogen 10 mg/dL (9-16); Calcium 10.2 mg/dL (8.4-10.2); Carbon Dioxide 23 mmol/L (22-29); Chloride 108 mmol/L (96-108); Creatinine Clr Calc Pharmacy 80.3; Estimated Glomerular Filt Rate > 60; Glucose Random 111 mg/dL (60-115); Potassium 4.3 mmol/L (3.3-5.1); Sodium 143 mmol/L (135-145)
== END 2021-05-29 21:06 | disposition home or self-care (01) ==
PROVIDERS: Emergency Medicine; Nurse Practitioner Family; Emergency Provider Internal Medicine; PCP Internal Medicine
DX: S39.012A Strain of muscle, fascia and tendon of lower back, initial encounter (principal); N39.0 Urinary tract infection, site not specified; I10 Essential (primary) hypertension; X58.XXXA Exposure to other specified factors, initial encounter; Y93.9 Activity, unspecified; Y92.9 Unspecified place or not applicable; Y99.9 Unspecified external cause status
CPT/HCPCS: 36415; 72131; 80048; 81003; 85025; 96372; 99284; J1885

== ENCOUNTER → 2021-06-01 09:05 | Outpatient (BNVA) | payer OTHER, SELFPAY | PROVIDERS: PCP Internal Medicine; Visit Provider Physician Assistant | DX: M54.41 Lumbago with sciatica, right side (principal) | CPT/HCPCS: 99214 ==

== ENCOUNTER → 2021-06-06 10:59 | Outpatient (BNVA) | payer OTHER, SELFPAY | PROVIDERS: PCP Internal Medicine; Visit Provider Internal Medicine | DX: M54.41 Lumbago with sciatica, right side (principal) | CPT/HCPCS: 99213 ==

== ENCOUNTER 2021-06-10 07:15 | Outpatient (REF) | payer OTHER, SELFPAY ==
--- NOTE | ~2021-06-10 | MR_ITS ---
EXAMINATION: MR LUMBAR SPINE WITHOUT CONTRAST CLINICAL INFORMATION: Twisted back, return right-sided radicular symptoms. COMPARISON: Lumbar spine radiograph 04/20/2021. TECHNIQUE: MRI of the lumbar spine was obtained using routine sequences without contrast. FINDINGS: VERTEBRAL BODIES AND PARASPINAL STRUCTURES: 5 lumbar type vertebral bodies are present and are normal in height and alignment. Minimal multilevel endplate discogenic marrow signal changes are noted along with mild multilevel endplate osteophytosis with visualized thoracic and lumbar spine. CONUS MEDULLARIS AND CAUDA EQUINA: Normal, terminating at the level of L1-L2. SPINAL LEVELS: L1-L2: No central foraminal stenoses. Minimal bilateral ligamentum flavum hypertrophy. Normal intervertebral disc height. Minimal anterior broad-based disc-osteophyte complex. L2-L3: Right parasagittal and intraforaminal disc protrusion and overlying herniated subligamentous disc extrusion with cranial extension into the right L2 lateral recess with right L2 nerve root impingement. A moderate right parasagittal intraforaminal disc protrusion is present with annular T2 hyperintensity likely representing an annular fissure. Findings are present in association with a mild right lateral disc bulge. Furthermore, a herniated disc extrusion overlies the right parasagittal intraforaminal protrusion and demonstrates a 12 mm cranial subligamentous extension (series 2 image 9, series 6 image 7). The extrusion results in direct right L2 nerve root impingement. Furthermore, the intraforaminal component of the disc protrusion results in mild right L2 dorsal root ganglion impingement. Additionally, mild bilateral ligamentum flavum hypertrophy is present. Intervertebral disc demonstrates overall normal height. L3-L4: Minimal bilateral intraforaminal disc protrusions without associated direct nerve root impingement. Mild bilateral ligamentum flavum hypertrophy. No significant central or foraminal stenoses. L4-L5: Mild central stenosis. Mild bilateral foraminal stenoses. Mild posterior broad-based disc bulge with bilateral intraforaminal extension resulting in mild (less than 50%) bilateral foraminal stenoses without associated nerve root impingement. Marked bilateral ligamentum flavum hypertrophy is present, which in combination with a broad-based disc bulge results in mild concentric thecal sac narrowing. Mild bilateral subarticular recess narrowing is present with mild abutment upon the traversing left and right L5 nerve roots. (Series 6 image 20). L5-S1: No significant central or foraminal stenoses. Minimal central disc protrusion minimally effacing the adjacent ventral thecal sac CSF space without associated direct nerve root impingement. MR/MR lumbar spine wo con IMPRESSION: L2-L3 right parasagittal and intraforaminal disc protrusion with an overlying herniated disc extrusion demonstrating 13 mm cranial extension into the L2 right lateral recess resulting in direct right L2 nerve root impingement. Furthermore, the disc protrusion additionally results in mild right L2 dorsal root ganglion impingement. Elsewhere in the lumbar spine, mild multilevel chronic spondylosis is noted without associated direct nerve root impingement or marked central or foraminal stenoses.
== END 2021-06-10 07:16 | disposition home or self-care (01) ==
LOC: HO.MRI 07:15
PROVIDERS: PCP Internal Medicine; Visit Provider Internal Medicine
DX: M54.5 Low back pain (principal)
CPT/HCPCS: 72148

== ENCOUNTER → 2021-06-13 09:41 | Outpatient (BNVA) | payer OTHER, SELFPAY | PROVIDERS: PCP Internal Medicine; Visit Provider Physician Assistant | DX: M51.26 Other intervertebral disc displacement, lumbar region (principal) | CPT/HCPCS: 99214 ==

== ENCOUNTER 2021-09-14 12:02 | Outpatient (REF) | payer OTHER, SELFPAY ==
[2021-09-14 13:18] LABS: Estimated Average Glucose 157 mg/dL; Hemoglobin A1c % 7.1 %
== END 2021-09-14 12:03 | disposition home or self-care (01) ==
LOC: HO.MANLDS 12:02
PROVIDERS: PCP Internal Medicine; Visit Provider Internal Medicine
DX: E11.9 Type 2 diabetes mellitus without complications (principal); E03.9 Hypothyroidism, unspecified
CPT/HCPCS: 36415; 83036

== ENCOUNTER → 2021-10-17 08:58 | Outpatient (BNVA) | payer OTHER, SELFPAY | PROVIDERS: PCP Internal Medicine; Visit Provider Internal Medicine Cardiovascular Disease | DX: I49.3 Ventricular premature depolarization (principal) | CPT/HCPCS: 93005 ==

== ENCOUNTER 2022-01-30 11:40 | Outpatient (REF) | payer OTHER, SELFPAY ==
[2022-01-30 14:10] LABS: Cholesterol 157 mg/dL; HDL Cholesterol 49 mg/dL; LDL Cholesterol Calculated 83 mg/dl; Triglycerides 128 mg/dL
[2022-01-31 04:20] LABS: Estimated Average Glucose 166 mg/dL; Hemoglobin A1c % 7.4 %
== END 2022-01-30 11:41 | disposition home or self-care (01) ==
LOC: HO.MANLDS 11:40
PROVIDERS: PCP Internal Medicine; Visit Provider Internal Medicine
DX: E11.9 Type 2 diabetes mellitus without complications (principal); E78.00 Pure hypercholesterolemia, unspecified
CPT/HCPCS: 36415; 80061; 83036

== ENCOUNTER 2022-02-04 21:24 | Emergency (ER) | payer OTHER, SELFPAY ==
--- NOTE | ~2022-02-04 | XR_ITS ---
EXAMINATION: PORTABLE CHEST 1 VIEW CLINICAL INFORMATION: CP . COMPARISON: 04/04/2019. TECHNIQUE: Portable frontal view of the chest was obtained. FINDINGS: The lungs are well expanded. No focal infiltrate, effusion, edema, or pneumothorax. Cardiac and mediastinal silhouettes are within normal limits for technique. No acute bony abnormality seen. XR/XR chest 1V IMPRESSION: No evidence of acute disease.
--- NOTE | 2022-02-04 21:28 | ECG_ITS ---
Test Reason : CP Blood Pressure : / mmHG Vent. Rate : 063 BPM Atrial Rate : 063 BPM P-R Int : 144 ms QRS Dur : 092 ms QT Int : 396 ms P-R-T Axes : 048 003 042 degrees QTc Int : 405 ms Normal sinus rhythm Normal ECG When compared with ECG of 04-APR-2019 01:32, Vent. rate has decreased BY 38 BPM QT has shortened Referred By: Generic ED Physician Electronically Signed By:LISANDRA DIAZ MD
[2022-02-04 21:39] VITALS: BP 174/85; PULSE 66; RESP 18; TEMP 36.6; O2SAT 97; BMI 28.4
[2022-02-04 22:05] LABS: MANUAL DIFF FLAG NO
[2022-02-04 22:07] LABS: Basophils Absolute Auto 0.1 X10*3/uL (0.0-0.2); Eosinophils Absolute Auto 0.2 X10*3/uL (0.0-0.4); Eosinophils Percent Auto 2.3 % (0-4); Hematocrit 42.6 % (37.0-47.0); Hemoglobin 13.8 g/dl (12.0-16.0); Imm Gran Abs Auto 0.03 X10*3/uL (0.00-0.03); Imm Gran Pct Auto 0.3 % (0.0-0.4); Lymphocytes Absolute Auto 4.2 X10*3/uL (1.2-4.9); Lymphocytes Percent Auto 42.2 % (20-40); Mean Corpuscular HGB Conc 32.4 g/dl (31.0-35.0); Mean Corpuscular Hemoglobin 30.4 pg (27.0-33.0); Mean Corpuscular Volume 93.8 fL (80.0-98.0); Mean Platelet Volume 11.1 fL (9.4-12.3); Monocytes Absolute Auto 0.7 X10*3/uL (0.1-1.2); Monocytes Percent Auto 7.3 % (2-11); Neutrophils Absolute Auto 4.7 x10*3/uL (2.0-8.3); Neutrophils Percent Auto 46.9 % (45-73); Platelet Count 266 X10*3/uL (160-400); Red Blood Count 4.54 X10*6/uL (4.20-5.50); Red Cell Distribution Width 12.5 % (11.0-16.0)
[2022-02-04 22:19] LABS: Anion Gap 12 (12-20); Blood Urea Nitrogen 15 mg/dL (9-16); Carbon Dioxide 26 mmol/L (22-29); Chloride 105 mmol/L (96-108); Creatinine Clr Calc Pharmacy 80.8; Estimated Glomerular Filt Rate > 60; Glucose Random 125 mg/dL (60-115); Sodium 139 mmol/L (135-145)
[2022-02-04 22:30] LABS: Troponin-I High Sensitivity 5.8 ng/L (<3.5-17.0)
--- NOTE | 2022-02-04 22:44 | ED.CHESTPAIN ---
HPI - Chest Pain General Chief Complaint: Chest Pain Stated Complaint: chest pain radiates to shoulder Time Seen by Provider: 02/04/22 22:41 History of Present Illness HPI narrative: 61 years old presents today with having chest pain that is mid chest on the left side goes to the arm. Has a history of diabetes, hypertension, high cholesterol. The pain lasts for approximately 5 minutes is no specific trigger there is no shortness of breath there is no diaphoresis it goes away and then there is nonspecific recurrence of this pain. Patient denies any fever chills. No coughing congestion upper respiratory symptoms. No focal weakness. Patient from home. Related Data Home Medications Medication Instructions Recorded Confirmed aspirin 81 mg tablet,delayed 81 mg PO DAILY 10/06/20 10/17/21 release (Adult Low Dose Aspirin) levothyroxine 50 mcg tablet 50 mcg PO DAILY 10/06/20 10/17/21 lisinopril 30 mg tablet 30 mg PO DAILY 10/06/20 10/17/21 metformin 1,000 mg tablet 1,000 mg PO BID 10/06/20 10/17/21 metoprolol succinate 50 mg 50 mg PO DAILY 10/06/20 10/17/21 tablet,extended release 24 hr omeprazole 20 mg capsule,delayed 20 mg PO DAILY 10/06/20 10/17/21 release simvastatin 40 mg tablet 40 mg PO BEDTIME 10/06/20 10/17/21 Previous Rx's Medication Instructions Recorded cyclobenzaprine 10 mg tablet 10 mg PO TID PRN #10 tab 04/20/21 lidocaine 5 % topical patch 1 patch TOPICAL DAILY #15 ea 04/20/21 (Lidoderm) naproxen 500 mg tablet 500 mg PO BID PRN #20 tab 04/20/21 cyclobenzaprine 5 mg tablet 5 mg PO TID PRN #14 tab 05/28/21 lidocaine 5 % topical patch 1 patch TOPICAL DAILY PRN #15 ea 05/28/21 naproxen 500 mg tablet (Naprosyn) 500 mg PO BID PRN #20 tab 05/28/21 nitrofurantoin 100 mg PO Q12H 5 Days #10 cap 05/28/21 monohydrate/macrocrystals 100 mg capsule (Macrobid) oxycodone 5 mg tablet 5 mg PO Q6H PRN #10 tab 05/29/21 Allergies Allergy/AdvReac Type Severity Reaction Status Date / Time No Known Allergies Allergy Verified 10/17/21 09:13 Review of Systems Review of Systems: Positive chest pain no shortness of breath no diaphoresis Yes all other systems are reviewed and are negative FOR[facility]LY [facility] Past Medical History Attestation statement: The following information was validated with the patient. Medical History Hyperlipidemia Hypertension PVC (premature ventricular contraction) Surgical History H/O hernia repair H/O tubal ligation History of appendectomy Family History Family History Father No problems noted. Mother Diabetes CVD (cardiovascular disease) Social History Social History Alcohol intake: never Patient Tobacco Use Status: Never used Tobacco Advance Directives: No Advance Directives Information Provided: Yes Physical Exam Vital Signs: Vital Signs: Last Vital Signs Temp 97.9 F 02/04/22 23:30 Pulse 65 02/04/22 23:30 Resp 19 02/04/22 23:30 BP 134/60 02/04/22 23:30 Pulse Ox 99 02/04/22 23:30 BMI result Body Mass Index 28.4 Appearance: Alert. Oriented X3. No acute distress. Eyes: Pupils equal, round and reactive to light. ENT: Pharynx normal. Neck: Normal inspection. Neck supple. No lymph nodes noted. No crepitus CVS: Normal heart rate and rhythm. Pulses normal. Normal S1 and S2 Respiratory: No respiratory distress. Breath sounds normal. No Wheezing. No rales Abdomen: Soft and nontender. No rigidity. No distention. good BS x4 Skin: Skin warm and dry. Normal skin color. Normal skin turgor. Extremities: No lower extremity edema. Neurovascular intact to all extremities. No Lacerations. No Rash Neuro: Oriented X 3. No motor deficit. No sensory deficit. Moving all extermities. No slurred speech MDM - Chest Pain MDM Narrative Medical decision making narrative: Patient's chest pain atypical nature. EKG showed a sinus pattern heart rate is 65 VT QRS QT with a normal axis no acute ST segment elevation. She does have multiple risk factors. Including diabetes, hypertension. Patient's troponin is 5.9. Second set of enzymes done approximately 1 hour in was 8. Both still negative. Patient delta is less than 50%. A 3rd set of enzyme was done. If they are negative unlikely to be ACS. Patient's chest x-ray negative for pneumonia pneumothorax. History not consistent with dissection. Will discharge patient home. Medical Records Data Attestation: I reviewed the patient's medical records. Lab Data Attestation: I reviewed the patient's lab results. Result diagrams: 02/04/22 21:51 02/04/22 21:51 Labs: Lab Results 02/04/22 02/04/22 02/04/22 Range/Units 21:51 21:51 21:51 WBC 10.0 (4.8-10.8) X10*3/uL RBC 4.54 (4.20-5.50) X10*6/uL Hgb 13.8 (12.0-16.0) g/dl Hct 42.6 (37.0-47.0) % MCV 93.8 (80.0-98.0) fL MCH 30.4 (27.0-33.0) pg MCHC 32.4 (31.0-35.0) g/dl RDW 12.5 (11.0-16.0) % Plt Count 266 (160-400) X10*3/uL MPV 11.1 (9.4-12.3) fL Immature Gran % (Auto) 0.3 (0.0-0.4) % Neut % (Auto) 46.9 (45-73) % Lymph % (Auto) 42.2 H (20-40) % [place] % (Auto) 7.3 (2-11) % Eos % (Auto) 2.3 (0-4) % Baso % (Auto) 1.0 (0-2) % Lymph # (Auto) 4.2 (1.2-4.9) X10*3/uL [place] # (Auto) 0.7 (0.1-1.2) X10*3/uL Eos # (Auto) 0.2 (0.0-0.4) X10*3/uL Baso # (Auto) 0.1 (0.0-0.2) X10*3/uL Abs Immat Gran (auto) 0.03 (0.00-0.03) X10*3/uL Absolute Neuts (auto) 4.7 (2.0-8.3) x10*3/uL Absolute Nucleated RBC 0.000 (0.0-0.012) X10*3/uL Nucleated RBC % (auto) 0.0 (0.0-0.2) /100WBC Sodium 139 (135-145) mmol/L Potassium 4.0 (3.3-5.1) mmol/L Chloride 105 (96-108) mmol/L Carbon Dioxide 26 (22-29) mmol/L Anion Gap 12 (12-20) BUN 15 (9-16) mg/dL Creatinine 0.80 (0.5-1.4) mg/dL Estim Creat Clear Calc 80.8 Estimated GFR > 60 Random Glucose 125 H (60-115) mg/dL Calcium 10.0 (8.4-10.2) mg/dL Troponin I High Sens 5.8 (<3.5-17.0) ng/L 02/04/22 02/05/22 Range/Units 23:27 01:19 WBC (4.8-10.8) X10*3/uL RBC (4.20-5.50) X10*6/uL Hgb (12.0-16.0) g/dl Hct (37.0-47.0) % MCV (80.0-98.0) fL MCH (27.0-33.0) pg MCHC (31.0-35.0) g/dl RDW (11.0-16.0) % Plt Count (160-400) X10*3/uL MPV (9.4-12.3) fL Immature Gran % (Auto) (0.0-0.4) % Neut % (Auto) (45-73) % Lymph % (Auto) (20-40) % [place] % (Auto) (2-11) % Eos % (Auto) (0-4) % Baso % (Auto) (0-2) % Lymph # (Auto) (1.2-4.9) X10*3/uL [place] # (Auto) (0.1-1.2) X10*3/uL Eos # (Auto) (0.0-0.4) X10*3/uL Baso # (Auto) (0.0-0.2) X10*3/uL Abs Immat Gran (auto) (0.00-0.03) X10*3/uL Absolute Neuts (auto) (2.0-8.3) x10*3/uL Absolute Nucleated RBC (0.0-0.012) X10*3/uL Nucleated RBC % (auto) (0.0-0.2) /100WBC Sodium (135-145) mmol/L Potassium (3.3-5.1) mmol/L Chloride (96-108) mmol/L Carbon Dioxide (22-29) mmol/L Anion Gap (12-20) BUN (9-16) mg/dL Creatinine (0.5-1.4) mg/dL Estim Creat Clear Calc Estimated GFR Random Glucose (60-115) mg/dL Calcium (8.4-10.2) mg/dL Troponin I High Sens 8.0 6.3 (<3.5-17.0) ng/L Discharge Plan Discharge Clinical Impression: Chest pain Patient Disposition: Home, Self-Care Instructions: Chest Pain (DC) Prescriptions: No Action naproxen 500 mg tablet 500 mg PO BID PRN (Reason: pain) Qty: 20 0RF cyclobenzaprine 10 mg tablet 10 mg PO TID PRN (Reason: muscle spasm) Qty: 10 0RF lidocaine [Lidoderm] 5 % adhesive patch,medicated 1 patch topical DAILY Qty: 15 0RF Rx Instructions: leave on most painful area for up to 12 hrs oxycodone 5 mg tablet 5 mg PO Q6H PRN (Reason: pain) Qty: 10 0RF nitrofurantoin monohyd/m-cryst [Macrobid] 100 mg capsule 100 mg PO Q12H 5 Days Qty: 10 0RF Rx Instructions: must administer with a meal/food naproxen [Naprosyn] 500 mg tablet 500 mg PO BID PRN (Reason: pain) Qty: 20 0RF cyclobenzaprine 5 mg tablet 5 mg PO TID PRN (Reason: muscle spasm) Qty: 14 0RF Rx Instructions: this medication may cause drowsiness, no driving for 6 hours after taking lidocaine 5 % adhesive patch,medicated 1 patch topical DAILY PRN (Reason: pain in back) Qty: 15 0RF Rx Instructions: leave on most painful area for up to 12 hrs omeprazole 20 mg capsule,delayed release(DR/EC) 20 mg PO DAILY 0RF levothyroxine 50 mcg tablet 50 mcg PO DAILY 0RF simvastatin 40 mg tablet 40 mg PO BEDTIME 0RF metformin 1,000 mg tablet 1,000 mg PO BID 0RF lisinopril 30 mg tablet 30 mg PO DAILY 0RF metoprolol succinate 50 mg tablet extended release 24 hr 50 mg PO DAILY 0RF aspirin [Adult Low Dose Aspirin] 81 mg tablet,delayed release (DR/EC) 81 mg PO DAILY 0RF Referrals: Chriss Mehta MD [Primary Care Provider] - 2 days
[2022-02-04 23:30] VITALS: BP 134/60; PULSE 65; RESP 19; TEMP 36.6; O2SAT 99
[2022-02-04] MEDS: Aspirin 81 MG TAB.CHEW 243 MG PO (23:38)
[2022-02-05 01:58] LABS: Troponin-I High Sensitivity 6.3 ng/L (<3.5-17.0)
== END 2022-02-05 03:16 | disposition home or self-care (01) ==
PROVIDERS: Emergency Provider Emergency Medicine Emergency Medical Services; PCP Internal Medicine
DX: R07.9 Chest pain, unspecified (principal); E11.9 Type 2 diabetes mellitus without complications; I10 Essential (primary) hypertension; E78.5 Hyperlipidemia, unspecified; Z79.82 Long term (current) use of aspirin; Z79.02 Long term (current) use of antithrombotics/antiplatelets
CPT/HCPCS: 36415; 71045; 80048; 84484; 85025; 93005; 99284

== ENCOUNTER 2022-07-11 12:10 | Outpatient (REF) | payer OTHER, SELFPAY | END 2022-07-11 12:11 | disposition home or self-care (01) | LOC: HO.MANLDS 12:10 | PROVIDERS: Visit Provider Physician Assistant | DX: Z13.89 Encounter for screening for other disorder (principal) ==

== ENCOUNTER 2022-08-04 11:01 | Emergency (ER) | payer OTHER, SELFPAY ==
--- NOTE | ~2022-08-04 | CT_ITS ---
EXAMINATION: CT ABDOMEN AND PELVIS WITHOUT CONTRAST CLINICAL INFORMATION: Left lower quadrant pain. Concern for diverticulitis. COMPARISON: CT abdomen and pelvis 05/30/2016 TECHNIQUE: Multidetector volumetric imaging was performed from the superior aspect of the liver through the pubic symphysis. Sagittal and coronal reformatted images were obtained on the technologist's workstation. This CT examination was performed using dose optimization techniques as appropriate, variously including the following: *Automated exposure control *Adjustment of mA and/or kV according to patient size (this includes techniques or standardized protocols for targeted exams where dose is matched to indication/reason for exam; i.e. extremities or head) *Use of iterative reconstruction technique DLP: 536 mGy-cm FINDINGS: LUNG BASES: The visualized lung bases are unremarkable. LIVER, GALLBLADDER, AND BILIARY TREE: The liver is normal in size, shape, and attenuation. No focal hepatic lesion or biliary ductal dilatation is present. The gallbladder is unremarkable with no evidence of radiopaque gallstones, gallbladder wall thickening, or obvious pericholecystic inflammatory changes. PANCREAS: Unremarkable. SPLEEN: Unremarkable. ADRENAL GLANDS: Unremarkable. KIDNEYS AND URETERS: Right kidney: 2 small nonobstructive calculi in the right kidney. Mid upper pole there is a 5 mm stone. The midpole there is a 1 mm stone. No ureteral calculus. No hydronephrosis. Left kidney: No hydronephrosis. No renal or ureteral stone. BLADDER: Unremarkable. GASTROINTESTINAL TRACT: There are scattered diverticula of the colon. There is a mildly inflamed diverticulum of the mid sigmoid colon consistent with a mild diverticulitis. Image 67/90 series 3. There is edema in the surrounding pericolonic fat. No abscess or free air. There is no bowel obstruction. There is a moderate volume of stool in the colon. The appendix is surgically absent . The small bowel loops are unremarkable. The stomach is normal. There is no hiatal hernia. ABDOMINAL WALL: Small fat-containing umbilical hernia LYMPH NODES: Normal. VASCULAR: Unremarkable. PELVIC VISCERA: Unremarkable. OSSEOUS STRUCTURES: Unremarkable. CT/CT abdomen pelvis wo IV con IMPRESSION: 1. Inflamed diverticulum at the sigmoid colon consistent with a mild focal diverticulitis. 2. Nonobstructive right renal stones. Fleischner guidelines were followed.
[2022-08-04 11:29] VITALS: BP 151/64; PULSE 62; RESP 18; TEMP 36.2; O2SAT 100; BMI 25.8
[2022-08-04 12:11] LABS: MANUAL DIFF FLAG NO
[2022-08-04 12:23] LABS: Basophils Absolute Auto 0.1 X10*3/uL (0.0-0.2); Basophils Percent Auto 0.9 % (0-2); Eosinophils Absolute Auto 0.3 X10*3/uL (0.0-0.4); Hematocrit 43.2 % (37.0-47.0); Hemoglobin 13.7 g/dl (12.0-16.0); Imm Gran Abs Auto 0.05 X10*3/uL (0.00-0.03); Imm Gran Pct Auto 0.4 % (0.0-0.4); Lymphocytes Absolute Auto 3.1 X10*3/uL (1.2-4.9); Lymphocytes Percent Auto 24.1 % (20-40); Mean Corpuscular HGB Conc 31.7 g/dl (31.0-35.0); Mean Corpuscular Hemoglobin 29.2 pg (27.0-33.0); Mean Corpuscular Volume 92.1 fL (80.0-98.0); Mean Platelet Volume 11.8 fL (9.4-12.3); Monocytes Absolute Auto 0.9 X10*3/uL (0.1-1.2); Monocytes Percent Auto 6.7 % (2-11); Neutrophils Absolute Auto 8.5 x10*3/uL (2.0-8.3); Neutrophils Percent Auto 65.9 % (45-73); Platelet Count 294 X10*3/uL (160-400); Red Blood Count 4.69 X10*6/uL (4.20-5.50); Red Cell Distribution Width 13.2 % (11.0-16.0); White Blood Count 12.9 X10*3/uL (4.8-10.8)
[2022-08-04 12:26] LABS: Appearance Urine Clear; Color Urine Yellow; Glucose Urine UA Negative (Negative); Leukocyte Esterase Urine Small (1+) (Negative); Nitrite Urine Negative (Negative); PH 5.5 (5.0-9.0); Urine Blood Negative (Negative); Urine Ketones Negative (Negative); Urine Protein Negative (Neg-Trace)
[2022-08-04 12:28] LABS: Alanine Aminotransferase 31 U/L (0-31); Albumin Level 4.3 g/dL (3.5-5.0); Alkaline Phosphatase 96 U/L (39-117); Anion Gap 14 (12-20); Aspartate Amino Transferase 39 U/L (5-31); Bilirubin Direct < 0.2 mg/dL (0.0-0.5); Bilirubin Total 0.3 mg/dL (0.0-1.0); Blood Urea Nitrogen 13 mg/dL (9-16); Calcium 10.2 mg/dL (8.4-10.2); Carbon Dioxide 27 mmol/L (22-29); Chloride 105 mmol/L (96-108); Creatinine Clr Calc Pharmacy 81.3; Estimated Glomerular Filt Rate > 60; Glucose Random 153 mg/dL (60-115); Sodium 141 mmol/L (135-145); Total Protein 7.8 g/dL (6.5-8.0)
[2022-08-04 12:30] LABS: Bacteria Urine None Seen (None Seen); Hyaline Casts Urine 0-2 /LPF (0-2); UACC Culture Trigger YES
[2022-08-04 13:29] VITALS: BP 145/79; PULSE 69; RESP 16; TEMP 36.7; O2SAT 100
--- NOTE | 2022-08-04 15:43 | ED.ABDPAIN ---
HPI - Abdominal Pain General Chief Complaint: Abdominal Pain Stated Complaint: pain in lower L side rad. to back/nausea Time Seen by Provider: 08/04/22 13:58 History of Present Illness HPI narrative: Patient complains of left low abdominal pain similar to prior episode of diverticulitis There are no associated symptoms no fever, no vomiting no diarrhea no blood in the stool Pain has been there for 2-3 days Related Data Home Medications Medication Instructions Recorded Confirmed aspirin 81 mg tablet,delayed 81 mg PO DAILY 10/06/20 10/17/21 release (Adult Low Dose Aspirin) levothyroxine 50 mcg tablet 50 mcg PO DAILY 10/06/20 10/17/21 lisinopril 30 mg tablet 30 mg PO DAILY 10/06/20 10/17/21 metformin 1,000 mg tablet 1,000 mg PO BID 10/06/20 10/17/21 metoprolol succinate 50 mg 50 mg PO DAILY 10/06/20 10/17/21 tablet,extended release 24 hr omeprazole 20 mg capsule,delayed 20 mg PO DAILY 10/06/20 10/17/21 release simvastatin 40 mg tablet 40 mg PO BEDTIME 10/06/20 10/17/21 Previous Rx's Medication Instructions Recorded cyclobenzaprine 10 mg tablet 10 mg PO TID PRN muscle spasm #10 04/20/21 tabs lidocaine 5 % topical patch 1 patch topical DAILY #15 ea 04/20/21 (Lidoderm) naproxen 500 mg tablet 500 mg PO BID PRN pain #20 tabs 04/20/21 cyclobenzaprine 5 mg tablet 5 mg PO TID PRN muscle spasm #14 05/28/21 tabs lidocaine 5 % topical patch 1 patch topical DAILY PRN pain 05/28/21 in back #15 ea naproxen 500 mg tablet (Naprosyn) 500 mg PO BID PRN pain #20 tabs 05/28/21 nitrofurantoin 100 mg PO Q12H 5 days #10 caps 05/28/21 monohydrate/macrocrystals 100 mg capsule (Macrobid) oxycodone 5 mg tablet 5 mg PO Q6H PRN pain #10 tabs 05/29/21 acetaminophen 500 mg tablet 1,000 mg PO QID PRN pain #30 tabs 08/04/22 amoxicillin 875 mg-potassium 1 tab PO BID 10 days #20 tabs 08/04/22 clavulanate 125 mg tablet metronidazole 500 mg tablet 500 mg PO Q6H 10 days #40 tabs 08/04/22 oxycodone 5 mg tablet 5 mg PO Q6H PRN pain #10 tabs 08/04/22 Allergies Allergy/AdvReac Type Severity Reaction Status Date / Time No Known Allergies Allergy Verified 10/17/21 09:13 Review of Systems Review of Systems Positive for abdominal pain Negatives are no fever no chills no dizziness or weakness no fainting no headache no neck pain no chest pain no shortness of breath no nausea vomiting or diarrhea no blood in the stool no dysuria no frequency no incontinence no flank pain no back pain no skin rash Yes all other systems are reviewed and are negative PMFSH Past Medical History Source: nursing notes reviewed Medical History Hyperlipidemia Hypertension PVC (premature ventricular contraction) Surgical History H/O hernia repair H/O tubal ligation History of appendectomy Family History Family History Father No problems noted. Mother Diabetes CVD (cardiovascular disease) Social History Social History Alcohol intake: never Patient Tobacco Use Status: Never used Tobacco Advance Directives: No Advance Directives Information Provided: Yes Physical Exam ED Vital Signs: Vital Signs - 24 hr 08/04/22 11:29 08/04/22 13:29 Temperature 97.2 F 98.1 F Pulse Rate 62 69 Respiratory Rate 18 16 Blood Pressure 151/64 H 145/79 H Pulse Oximetry 100 100 Oxygen Delivery Method Room Air Room Air BMI result Body Mass Index 25.8 General appearance no distress The eyes are anicteric no pallor Sinuses nontender Pharynx mucous membranes are moist no redness swelling or exudate Neck is supple Chest clear to auscultation bilateral no chest wall pain Heart no murmur The abdomen had lower left abdominal tenderness without rebound or guarding, there was no other tenderness to the abdomen no distention Extremities full range of motion x4 Skin no rash Course Course Course Narrative: CT scan was consistent with diverticulitis Patient had white count of 12.9 but there was no evidence of fever tachycardia or low blood pressure, very unlikely to be sepsis Urine showed 3-5 white cells as well as squamous epithelial cells and was interpreted as negative in the absence of any urinary symptoms Patient was treated with Augmentin and Flagyl for diverticulitis, tolerating p.o. afebrile and comfortable and was discharged MDM - Abdominal Pain Lab Data Attestation: I reviewed the patient's lab results. Result diagrams: 08/04/22 11:39 08/04/22 11:39 Labs: Lab Results 08/04/22 08/04/22 08/04/22 Range/Units 11:39 11:39 11:39 WBC 12.9 H (4.8-10.8) X10*3/uL RBC 4.69 (4.20-5.50) X10*6/uL Hgb 13.7 (12.0-16.0) g/dl Hct 43.2 (37.0-47.0) % MCV 92.1 (80.0-98.0) fL MCH 29.2 (27.0-33.0) pg MCHC 31.7 (31.0-35.0) g/dl RDW 13.2 (11.0-16.0) % Plt Count 294 (160-400) X10*3/uL MPV 11.8 (9.4-12.3) fL Immature Gran % (Auto) 0.4 (0.0-0.4) % Neut % (Auto) 65.9 (45-73) % Lymph % (Auto) 24.1 (20-40) % [place] % (Auto) 6.7 (2-11) % Eos % (Auto) 2.0 (0-4) % Baso % (Auto) 0.9 (0-2) % Lymph # (Auto) 3.1 (1.2-4.9) X10*3/uL [place] # (Auto) 0.9 (0.1-1.2) X10*3/uL Eos # (Auto) 0.3 (0.0-0.4) X10*3/uL Baso # (Auto) 0.1 (0.0-0.2) X10*3/uL Abs Immat Gran (auto) 0.05 H (0.00-0.03) X10*3/uL Absolute Neuts (auto) 8.5 H (2.0-8.3) x10*3/uL Absolute Nucleated RBC 0.000 (0.0-0.012) X10*3/uL Nucleated RBC % (auto) 0.0 (0.0-0.2) /100WBC Sodium 141 (135-145) mmol/L Potassium 5.0 D (3.3-5.1) mmol/L Chloride 105 (96-108) mmol/L Carbon Dioxide 27 (22-29) mmol/L Anion Gap 14 (12-20) BUN 13 (9-16) mg/dL Creatinine 0.75 (0.5-1.4) mg/dL Estim Creat Clear Calc 81.3 Estimated GFR > 60 Random Glucose 153 H (60-115) mg/dL Calcium 10.2 (8.4-10.2) mg/dL Total Bilirubin 0.3 (0.0-1.0) mg/dL Direct Bilirubin < 0.2 (0.0-0.5) mg/dL AST 39 H (5-31) U/L ALT 31 (0-31) U/L Alkaline Phosphatase 96 (39-117) U/L Total Protein 7.8 (6.5-8.0) g/dL Albumin 4.3 (3.5-5.0) g/dL Urine Color Yellow Urine Appearance Clear Urine pH 5.5 (5.0-9.0) Ur Specific [place] 1.010 (1.005-1.025) Urine Protein Negative (Neg-Trace) mg/dL Urine Glucose (UA) Negative (Negative) mg/dL Urine Ketones Negative (Negative) mg/dL Urine Blood Negative (Negative) Urine Nitrite Negative (Negative) Ur Leukocyte Esterase Small (1+) H (Negative) Urine RBC 3-5 H (0-2) /HPF Urine WBC 6-10 H (0-5) /HPF Ur Squamous Epith Cells 3-5 (0-2) /HPF Urine Bacteria None Seen (None Seen) Hyaline Casts 0-2 (0-2) /LPF Discharge Plan Discharge Clinical Impression: Diverticulitis Patient Disposition: Home, Self-Care Additional Instructions: CT showed likely diverticulitis, your exam was consistent with diverticulitis Take antibiotics as directed Follow with your doctor Return any time for vomiting, worsening pain, any change or worse condition or any concerns It is a good idea to take probiotics, vitamins available [id number], which help prevent diarrhea associated with antibiotics Prescriptions: New metronidazole 500 mg tablet 500 mg PO Q6H 10 Days Qty: 40 0RF amoxicillin-pot clavulanate 875-125 mg tablet 1 tab PO BID 10 Days Qty: 20 0RF acetaminophen 500 mg tablet 1,000 mg PO QID PRN (Reason: pain) Qty: 30 0RF oxycodone 5 mg tablet 5 mg PO Q6H PRN (Reason: pain) Qty: 10 0RF Rx Instructions: Partial Fill upon patient request. No Action naproxen 500 mg tablet 500 mg PO BID PRN (Reason: pain) Qty: 20 0RF cyclobenzaprine 10 mg tablet 10 mg PO TID PRN (Reason: muscle spasm) Qty: 10 0RF lidocaine [Lidoderm] 5 % adhesive patch,medicated 1 patch topical DAILY Qty: 15 0RF Rx Instructions: leave on most painful area for up to 12 hrs oxycodone 5 mg tablet 5 mg PO Q6H PRN (Reason: pain) Qty: 10 0RF nitrofurantoin monohyd/m-cryst [Macrobid] 100 mg capsule 100 mg PO Q12H 5 Days Qty: 10 0RF Rx Instructions: must administer with a meal/food naproxen [Naprosyn] 500 mg tablet 500 mg PO BID PRN (Reason: pain) Qty: 20 0RF cyclobenzaprine 5 mg tablet 5 mg PO TID PRN (Reason: muscle spasm) Qty: 14 0RF Rx Instructions: this medication may cause drowsiness, no driving for 6 hours after taking lidocaine 5 % adhesive patch,medicated 1 patch topical DAILY PRN (Reason: pain in back) Qty: 15 0RF Rx Instructions: leave on most painful area for up to 12 hrs omeprazole 20 mg capsule,delayed release(DR/EC) 20 mg PO DAILY levothyroxine 50 mcg tablet 50 mcg PO DAILY simvastatin 40 mg tablet 40 mg PO BEDTIME metformin 1,000 mg tablet 1,000 mg PO BID lisinopril 30 mg tablet 30 mg PO DAILY metoprolol succinate 50 mg tablet extended release 24 hr 50 mg PO DAILY aspirin [Adult Low Dose Aspirin] 81 mg tablet,delayed release (DR/EC) 81 mg PO DAILY Interventions: ED Discharge Assessment Last Done: 08/04/22 16:07 Discharge Date/Time: 08/04/22 16:08
[2022-08-04] MEDS: Amoxicillin/Potassium Clav 875 MG TABLET PO (15:55)
[2022-08-04] MEDS: metroNIDAZOLE 500 MG TABLET PO (15:55)
== END 2022-08-04 16:08 | disposition home or self-care (01) ==
PROVIDERS: Emergency Provider Student in an Organized Health Care Education/Training Program; PCP Internal Medicine
DX: K57.32 Diverticulitis of large intestine without perforation or abscess without bleeding (principal); R10.32 Left lower quadrant pain; M54.50 Low back pain, unspecified; Z79.899 Other long term (current) drug therapy
CPT/HCPCS: 36415; 74176; 80053; 81001; 82248; 85025; 87086; 99283; 99284

== ENCOUNTER 2022-08-18 12:13 | Outpatient (REF) | payer OTHER, SELFPAY ==
[2022-08-18 13:52] LABS: MANUAL DIFF FLAG NO
[2022-08-18 14:05] LABS: Basophils Absolute Auto 0.1 X10*3/uL (0.0-0.2); Basophils Percent Auto 1.1 % (0-2); Eosinophils Absolute Auto 0.3 X10*3/uL (0.0-0.4); Hemoglobin 13.3 g/dl (12.0-16.0); Imm Gran Abs Auto 0.02 X10*3/uL (0.00-0.03); Imm Gran Pct Auto 0.2 % (0.0-0.4); Lymphocytes Absolute Auto 3.4 X10*3/uL (1.2-4.9); Lymphocytes Percent Auto 41.6 % (20-40); Mean Corpuscular HGB Conc 31.7 g/dl (31.0-35.0); Mean Corpuscular Hemoglobin 28.5 pg (27.0-33.0); Mean Corpuscular Volume 89.9 fL (80.0-98.0); Mean Platelet Volume 11.8 fL (9.4-12.3); Monocytes Absolute Auto 0.5 X10*3/uL (0.1-1.2); Monocytes Percent Auto 6.3 % (2-11); Neutrophils Absolute Auto 3.9 x10*3/uL (2.0-8.3); Neutrophils Percent Auto 47.8 % (45-73); Platelet Count 315 X10*3/uL (160-400); Red Blood Count 4.67 X10*6/uL (4.20-5.50); Red Cell Distribution Width 13.3 % (11.0-16.0); White Blood Count 8.2 X10*3/uL (4.8-10.8)
[2022-08-18 14:10] LABS: Estimated Average Glucose 183 mg/dL
[2022-08-18 14:25] LABS: Alanine Aminotransferase 30 U/L (0-31); Albumin Level 3.9 g/dL (3.5-5.0); Alkaline Phosphatase 75 U/L (39-117); Anion Gap 14 (12-20); Aspartate Amino Transferase 42 U/L (5-31); Bilirubin Total 0.3 mg/dL (0.0-1.0); Blood Urea Nitrogen 9 mg/dL (9-16); Calcium 10.3 mg/dL (8.4-10.2); Carbon Dioxide 25 mmol/L (22-29); Chloride 104 mmol/L (96-108); Cholesterol 139 mg/dL; Estimated Glomerular Filt Rate > 60; Glucose Random 158 mg/dL (60-115); HDL Cholesterol 37 mg/dL; LDL Cholesterol Calculated 75 mg/dl; Potassium 4.4 mmol/L (3.3-5.1); Sodium 139 mmol/L (135-145); Total Protein 6.9 g/dL (6.5-8.0); Triglycerides 136 mg/dL
== END 2022-08-18 12:14 | disposition home or self-care (01) ==
LOC: HO.MANLDS 12:13
PROVIDERS: Physician Assistant; Visit Provider Internal Medicine
DX: E11.9 Type 2 diabetes mellitus without complications (principal)
CPT/HCPCS: 36415; 80053; 80061; 83036; 85025

== ENCOUNTER 2022-09-28 15:09 | Outpatient (REF) | payer OTHER, SELFPAY ==
[2022-09-28 16:30] LABS: Estimated Average Glucose 171 mg/dL; Hemoglobin A1c % 7.6 %
[2022-09-28 16:32] LABS: Cholesterol 158 mg/dL; HDL Cholesterol 46 mg/dL; LDL Cholesterol Calculated 79 mg/dl; Triglycerides 165 mg/dL
== END 2022-09-28 15:10 | disposition home or self-care (01) ==
LOC: HO.LAB 15:09
PROVIDERS: Absent Provider Internal Medicine; PCP Internal Medicine; Visit Provider Physician Assistant Medical
DX: E11.9 Type 2 diabetes mellitus without complications (principal); E78.00 Pure hypercholesterolemia, unspecified
CPT/HCPCS: 36415; 80061; 83036

== ENCOUNTER → 2022-10-30 14:52 | Outpatient (BNVA) | payer OTHER, SELFPAY | PROVIDERS: PCP Internal Medicine; Visit Provider Internal Medicine Cardiovascular Disease | DX: I49.3 Ventricular premature depolarization (principal); E78.5 Hyperlipidemia, unspecified | CPT/HCPCS: 93005 ==

== ENCOUNTER 2023-02-08 16:39 | Emergency (ER) | payer OTHER, SELFPAY ==
--- NOTE | 2023-02-08 | ECG_ITS ---
Test Reason : CHEST PAIN Blood Pressure : / mmHG Vent. Rate : 075 BPM Atrial Rate : 075 BPM P-R Int : 152 ms QRS Dur : 088 ms QT Int : 390 ms P-R-T Axes : 049 004 048 degrees QTc Int : 435 ms Normal sinus rhythm Nonspecific ST abnormality Abnormal ECG When compared with ECG of 04-FEB-2022 21:39, No significant change was found Referred By: Generic ED Physician Electronically Signed By:Jluis Mena
--- NOTE | ~2023-02-08 | XR_ITS ---
EXAMINATION: XR CHEST CLINICAL INFORMATION: Chest pain COMPARISON: X-ray chest x-ray 11/14/2022 TECHNIQUE: 2 views of the chest were obtained. FINDINGS: The cardiomediastinal silhouette is within normal limits. The lungs are well expanded. There is no focal consolidation, edema, or effusion. No pneumothorax. No acute osseous abnormality. XR/XR chest 2V IMPRESSION: No evidence of acute disease.
[2023-02-08 16:49] VITALS: BP 143/81; PULSE 85; RESP 18; TEMP 36.4; O2SAT 98; BMI 25.8
[2023-02-08 17:11] LABS: MANUAL DIFF FLAG NO
[2023-02-08 17:14] LABS: Basophils Absolute Auto 0.1 X10*3/uL (0.0-0.2); Basophils Percent Auto 0.7 % (0-2); Eosinophils Absolute Auto 0.2 X10*3/uL (0.0-0.4); Eosinophils Percent Auto 1.7 % (0-4); Hematocrit 44.6 % (37.0-47.0); Hemoglobin 13.8 g/dl (12.0-16.0); Imm Gran Abs Auto 0.03 X10*3/uL (0.00-0.03); Imm Gran Pct Auto 0.3 % (0.0-0.4); Lymphocytes Absolute Auto 3.6 X10*3/uL (1.2-4.9); Lymphocytes Percent Auto 36.3 % (20-40); Mean Corpuscular HGB Conc 30.9 g/dl (31.0-35.0); Mean Corpuscular Volume 90.7 fL (80.0-98.0); Monocytes Absolute Auto 0.7 X10*3/uL (0.1-1.2); Monocytes Percent Auto 6.6 % (2-11); Neutrophils Absolute Auto 5.4 x10*3/uL (2.0-8.3); Neutrophils Percent Auto 54.4 % (45-73); Platelet Count 299 X10*3/uL (160-400); Red Blood Count 4.92 X10*6/uL (4.20-5.50); Red Cell Distribution Width 14.4 % (11.0-16.0)
[2023-02-08 17:27] LABS: INTERNATIONAL NORM RATIO 0.9 (0.9-1.1)
[2023-02-08 17:34] LABS: Alanine Aminotransferase 21 U/L (0-31); Albumin Level 4.1 g/dL (3.5-5.0); Alkaline Phosphatase 78 U/L (39-117); Anion Gap 14 (12-20); Aspartate Amino Transferase 23 U/L (5-31); Bilirubin Total 0.3 mg/dL (0.0-1.0); Blood Urea Nitrogen 12 mg/dL (9-16); Calcium 9.7 mg/dL (8.4-10.2); Carbon Dioxide 24 mmol/L (22-29); Chloride 109 mmol/L (96-108); Creatinine Clr Calc Pharmacy 76.2; Estimated Glomerular Filt Rate > 60; Glucose Random 200 mg/dL (60-115); Potassium 4.4 mmol/L (3.3-5.1); Sodium 143 mmol/L (135-145); Total Protein 7.3 g/dL (6.5-8.0)
[2023-02-08 17:44] LABS: Troponin-I High Sensitivity < 3.5 ng/L (<3.5-17.0)
--- NOTE | 2023-02-08 21:11 | ED.CHESTPAIN ---
HPI - Chest Pain General Chief Complaint: Chest Pain Stated Complaint: Sharp chest pain Time Seen by Provider: 02/08/23 21:00 Source: patient, RN notes reviewed and old records reviewed Mode of arrival: ambulatory Limitations: no limitations History of Present Illness HPI narrative: 62-year-old female with past medical history significant for hyperlipidemia, hypertension presents for evaluation of chest pain. Patient has had left upper chest pain that radiates into her left shoulder and neck for the last 2 days. Her symptoms are worse with movement. Patient states that she believes her symptoms may be related to how she has been sleeping on her left side with her left arm under the pillow She denies any history of cardiac disease. Her symptoms are unrelated to exertion. Her pain is exacerbated by turning her neck to the side Currently she states that she has 0/10 pain but ?it comes and goes. ? Related Data Home Medications Medication Instructions Recorded Confirmed aspirin 81 mg tablet,delayed 81 mg PO DAILY 10/06/20 10/30/22 release (Adult Low Dose Aspirin) levothyroxine 50 mcg tablet 50 mcg PO DAILY 10/06/20 10/30/22 lisinopril 30 mg tablet 30 mg PO DAILY 10/06/20 10/30/22 metformin 1,000 mg tablet 1,000 mg PO BID 10/06/20 10/30/22 metoprolol succinate 50 mg 50 mg PO DAILY 10/06/20 10/30/22 tablet,extended release 24 hr omeprazole 20 mg capsule,delayed 20 mg PO DAILY 10/06/20 10/30/22 release simvastatin 40 mg tablet 40 mg PO BEDTIME 10/06/20 10/30/22 empagliflozin 10 mg tablet 10 mg PO DAILY 10/30/22 10/30/22 (Jardiance) Previous Rx's Medication Instructions Recorded cyclobenzaprine 10 mg tablet 10 mg PO TID PRN muscle spasm #10 04/20/21 tabs lidocaine 5 % topical patch 1 patch topical DAILY #15 ea 04/20/21 (Lidoderm) cyclobenzaprine 5 mg tablet 5 mg PO TID PRN muscle spasm #14 05/28/21 tabs lidocaine 5 % topical patch 1 patch topical DAILY PRN pain 05/28/21 in back #15 ea naproxen 500 mg tablet (Naprosyn) 500 mg PO BID PRN pain #20 tabs 05/28/21 acetaminophen 500 mg tablet 1,000 mg PO QID PRN pain #30 tabs 08/04/22 Allergies Allergy/AdvReac Type Severity Reaction Status Date / Time No Known Allergies Allergy Verified 10/30/22 15:01 Review of Systems Constitutional: Constitutional: Reports as per HPI, Denies chills, Denies fatigue, Denies fever(s) and Denies headache(s) ENT: Denies headache(s) Cardiovascular: Cardiovascular: Reports chest pain and Denies dyspnea Respiratory: Respiratory: Denies cough and Denies dyspnea Gastrointestinal: Gastrointestinal: Denies abdominal pain, Denies constipation and Denies vomiting Genitourinary: Genitourinary: Denies dysuria Neurologic: Denies headache(s) and Denies focal weakness Endocrine: Endocrine: Denies fatigue PMFSH Past Medical History Medical History Hyperlipidemia Hypertension PVC (premature ventricular contraction) Surgical History H/O hernia repair H/O tubal ligation History of appendectomy Family History Family History Father No problems noted. Mother Diabetes CVD (cardiovascular disease) Social History Social History Alcohol intake: never Patient Tobacco Use Status: Never used Tobacco Advance Directives: No Advance Directives Information Provided: Yes Physical Exam Vital Signs: Vital Signs: Last Vital Signs Temp 98.4 F 02/08/23 21:14 Pulse 68 02/08/23 21:14 Resp 18 02/08/23 21:14 BP 135/73 02/08/23 21:14 Pulse Ox 98 02/08/23 21:14 O2 Del Method 02/08/23 21:14 BMI result Body Mass Index 25.8 Const: General: healthy appearing, comfortable, no acute distress, alert and awake Nutritional Appearance: well nourished Orientation/consciousness: patient oriented x3 HEENT: Head: Yes normocephalic and Yes atraumatic Throat: Yes posterior oropharynx normal Eyes: Eyelids: Yes eyelids normal Conjunctivae: conjunctivae normal Sclerae: sclerae normal Corneas: corneas normal Pupils: Equal, round and reactive pupils present EOM: EOMs intact bilaterally Neck: Neck: Yes full ROM Chest: Other: Tender to palpation of the left anterior/upper chest. No deformities or crepitus noted. Chest palpation & inspection: normal inspection of the chest Resp: Effort & Inspection: normal respiratory effort, able to speak in complete sentences, no audible wheezes and not labored Auscultation: clear to auscultation bilaterally Cardio: Rate: regular rate Rhythm: regular rhythm GI: Inspection: No distended Palpation (GI): Soft to palpation, not firm, nontender, no guarding and not rigid Auscultation: normoactive bowel sounds Back/Spine/Pelvis: Other: Tenderness to the left cervical paraspinous muscles and the trapezius muscle group on left. No visual or palpable deformities Skin: General skin exam: no rashes or lesions noted and elasticity normal Neuro: General: patient oriented x3 Cranial nerves: Yes CN's II-XII intact bilaterally, Yes Equal, round and reactive pupils present and Yes Bilaterally intact EOM present Cognition (Neuro): normal cognition Medical Decision Making Medical Decision Making [facility] Narrative: 62 year female presents for evaluation chest pain. She has no history of cardiac disease. The patient is a nonsmoker. Currently is chest pain-free. Initial troponin is undetectable. Given that her pain has been present for 2 days I do not feel that a 3 hours delta troponin is necessary at this time. Chest x-ray is clear, EKG is nonischemic, labs are without significant abnormalities. The patient's pain is reproducible on exam, is most likely musculoskeletal in origin. I discussed with the patient and she is eager for discharge Differential Diagnosis Chest pain Chest wall pain Costochondritis Trapezius strain Spasmodic torticollis Pneumonia ACS Lab Data [facility] Lab Attestation statement: I reviewed the patient's lab results. 02/08/23 17:04 02/08/23 17:04 Labs: Lab Results 02/08/23 02/08/23 02/08/23 Range/Units 17:04 17:04 17:04 WBC 10.0 (4.8-10.8) X10*3/uL RBC 4.92 (4.20-5.50) X10*6/uL Hgb 13.8 (12.0-16.0) g/dl Hct 44.6 (37.0-47.0) % MCV 90.7 (80.0-98.0) fL MCH 28.0 (27.0-33.0) pg MCHC 30.9 L (31.0-35.0) g/dl RDW 14.4 (11.0-16.0) % Plt Count 299 (160-400) X10*3/uL MPV 11.0 (9.4-12.3) fL Immature Gran % (Auto) 0.3 (0.0-0.4) % Neut % (Auto) 54.4 (45-73) % Lymph % (Auto) 36.3 (20-40) % Wells % (Auto) 6.6 (2-11) % Eos % (Auto) 1.7 (0-4) % Baso % (Auto) 0.7 (0-2) % Lymph # (Auto) 3.6 (1.2-4.9) X10*3/uL Wells # (Auto) 0.7 (0.1-1.2) X10*3/uL Eos # (Auto) 0.2 (0.0-0.4) X10*3/uL Baso # (Auto) 0.1 (0.0-0.2) X10*3/uL Abs Immat Gran (auto) 0.03 (0.00-0.03) X10*3/uL Absolute Neuts (auto) 5.4 (2.0-8.3) x10*3/uL Absolute Nucleated RBC 0.000 (0.0-0.012) X10*3/uL Nucleated RBC % (auto) 0.0 (0.0-0.2) /100WBC PT 10.0 (10.0-13.1) SEC INR 0.9 (0.9-1.1) Sodium 143 (135-145) mmol/L Potassium 4.4 (3.3-5.1) mmol/L Chloride 109 H (96-108) mmol/L Carbon Dioxide 24 (22-29) mmol/L Anion Gap 14 (12-20) BUN 12 (9-16) mg/dL Creatinine 0.80 (0.5-1.4) mg/dL Estim Creat Clear Calc 76.2 Estimated GFR > 60 Random Glucose 200 H (60-115) mg/dL Calcium 9.7 (8.4-10.2) mg/dL Total Bilirubin 0.3 (0.0-1.0) mg/dL AST 23 (5-31) U/L ALT 21 (0-31) U/L Alkaline Phosphatase 78 (39-117) U/L Troponin I High Sens (<3.5-17.0) ng/L Total Protein 7.3 (6.5-8.0) g/dL Albumin 4.1 (3.5-5.0) g/dL / Range/Units 17:04 WBC (4.8-10.8) X10*3/uL RBC (4.20-5.50) X10*6/uL Hgb (12.0-16.0) g/dl Hct (37.0-47.0) % MCV (80.0-98.0) fL MCH (27.0-33.0) pg MCHC (31.0-35.0) g/dl RDW (11.0-16.0) % Plt Count (160-400) X10*3/uL MPV (9.4-12.3) fL Immature Gran % (Auto) (0.0-0.4) % Neut % (Auto) (45-73) % Lymph % (Auto) (20-40) % Wells % (Auto) (2-11) % Eos % (Auto) (0-4) % Baso % (Auto) (0-2) % Lymph # (Auto) (1.2-4.9) X10*3/uL Wells # (Auto) (0.1-1.2) X10*3/uL Eos # (Auto) (0.0-0.4) X10*3/uL Baso # (Auto) (0.0-0.2) X10*3/uL Abs Immat Gran (auto) (0.00-0.03) X10*3/uL Absolute Neuts (auto) (2.0-8.3) x10*3/uL Absolute Nucleated RBC (0.0-0.012) X10*3/uL Nucleated RBC % (auto) (0.0-0.2) /100WBC PT (10.0-13.1) SEC INR (0.9-1.1) Sodium (135-145) mmol/L Potassium (3.3-5.1) mmol/L Chloride (96-108) mmol/L Carbon Dioxide (22-29) mmol/L Anion Gap (12-20) BUN (9-16) mg/dL Creatinine (0.5-1.4) mg/dL Estim Creat Clear Calc Estimated GFR Random Glucose (60-115) mg/dL Calcium (8.4-10.2) mg/dL Total Bilirubin (0.0-1.0) mg/dL AST (5-31) U/L ALT (0-31) U/L Alkaline Phosphatase (39-117) U/L Troponin I High Sens < 3.5 (<3.5-17.0) ng/L Total Protein (6.5-8.0) g/dL Albumin (3.5-5.0) g/dL Independent Interpretation I performed an independent interpretation of an: EKG and Plain X-Ray Interpretation: No acute pathology on chest x-ray Radiology Impression Discussion of test interpretation with radiology: I have reviewed the radiologist's reading. Discharge Plan Discharge Clinical Impression: Atypical chest pain Patient Disposition: Home, Self-Care Instructions: Chest Pain (ED) Additional Instructions: Your workup in the emergency department was reassuring. This includes your blood work, chest x-ray and EKG. Your pain is most likely related to musculoskeletal origin. Use Motrin/Tylenol for discomfort Prescriptions: No Action cyclobenzaprine 10 mg tablet 10 mg PO TID PRN (Reason: muscle spasm) Qty: 10 0RF lidocaine [Lidoderm] 5 % adhesive patch,medicated 1 patch topical DAILY Qty: 15 0RF Rx Instructions: leave on most painful area for up to 12 hrs naproxen [Naprosyn] 500 mg tablet 500 mg PO BID PRN (Reason: pain) Qty: 20 0RF cyclobenzaprine 5 mg tablet 5 mg PO TID PRN (Reason: muscle spasm) Qty: 14 0RF Rx Instructions: this medication may cause drowsiness, no driving for 6 hours after taking lidocaine 5 % adhesive patch,medicated 1 patch topical DAILY PRN (Reason: pain in back) Qty: 15 0RF Rx Instructions: leave on most painful area for up to 12 hrs acetaminophen 500 mg tablet 1,000 mg PO QID PRN (Reason: pain) Qty: 30 0RF omeprazole 20 mg capsule,delayed release(DR/EC) 20 mg PO DAILY levothyroxine 50 mcg tablet 50 mcg PO DAILY simvastatin 40 mg tablet 40 mg PO BEDTIME metformin 1,000 mg tablet 1,000 mg PO BID lisinopril 30 mg tablet 30 mg PO DAILY metoprolol succinate 50 mg tablet extended release 24 hr 50 mg PO DAILY aspirin [Adult Low Dose Aspirin] 81 mg tablet,delayed release (DR/EC) 81 mg PO DAILY Jardiance 10 mg tablet 10 mg PO DAILY
[2023-02-08 21:14] VITALS: BP 135/73; PULSE 68; RESP 18; TEMP 36.9; O2SAT 98
--- NOTE | 2023-02-08 21:34 | PC.NURSE ---
vss. skin pwd. pt ambulatory at discharge. pt provided with discharge packet. pt verbalized understanding of discharge plan
== END 2023-02-08 21:37 | disposition home or self-care (01) ==
PROVIDERS: Emergency Provider Emergency Medicine; PCP Internal Medicine
DX: R07.89 Other chest pain (principal); E78.5 Hyperlipidemia, unspecified; I10 Essential (primary) hypertension; Z79.82 Long term (current) use of aspirin; Z79.84 Long term (current) use of oral hypoglycemic drugs; Z79.899 Other long term (current) drug therapy; Z79.02 Long term (current) use of antithrombotics/antiplatelets
CPT/HCPCS: 36415; 71046; 80053; 84484; 85025; 85610; 93005; 99283; 99284

== ENCOUNTER 2023-03-07 20:58 | Emergency (ER) | payer OTHER, SELFPAY ==
[2023-03-07 21:17] VITALS: BP 128/63; PULSE 68; RESP 18; TEMP 36.4; O2SAT 98; BMI 25.8
--- NOTE | 2023-03-07 21:39 | PC.NURSE ---
pt reports leaning over to change grandchild but when picking child up, she could not straighten her back. Feels as though the pain is right between her hips in the back. 10/10 pain
--- NOTE | 2023-03-07 21:54 | ED.BACK ---
HPI - Back Pain/Injury General Chief Complaint: Back Pain/Injury Stated Complaint: herniated disc for a year. lower back went out Time Seen by Provider: 03/07/23 21:52 Source: patient Mode of arrival: ambulatory Limitations: no limitations History of Present Illness HPI Narrative: Patient with history of chronic back problems had MRI 06/16 which showed herniated disc L2 on the right side has seen pain clinic and received cortisone shot doing much better until yesterday when she tried to lift a grandson bending down noticed increased pain in the back radiating to right lower extremity as in the past patient able to ambulate otherwise no bladder or bowel involvement Related Data Home Medications Medication Instructions Recorded Confirmed aspirin 81 mg tablet,delayed 81 mg PO DAILY 10/06/20 10/30/22 release (Adult Low Dose Aspirin) levothyroxine 50 mcg tablet 50 mcg PO DAILY 10/06/20 10/30/22 lisinopril 30 mg tablet 30 mg PO DAILY 10/06/20 10/30/22 metformin 1,000 mg tablet 1,000 mg PO BID 10/06/20 10/30/22 metoprolol succinate 50 mg 50 mg PO DAILY 10/06/20 10/30/22 tablet,extended release 24 hr omeprazole 20 mg capsule,delayed 20 mg PO DAILY 10/06/20 10/30/22 release simvastatin 40 mg tablet 40 mg PO BEDTIME 10/06/20 10/30/22 empagliflozin 10 mg tablet 10 mg PO DAILY 10/30/22 10/30/22 (Jardiance) Previous Rx's Medication Instructions Recorded cyclobenzaprine 10 mg tablet 10 mg PO TID PRN muscle spasm #10 04/20/21 tabs lidocaine 5 % topical patch 1 patch topical DAILY #15 ea 04/20/21 (Lidoderm) cyclobenzaprine 5 mg tablet 5 mg PO TID PRN muscle spasm #14 05/28/21 tabs lidocaine 5 % topical patch 1 patch topical DAILY PRN pain 05/28/21 in back #15 ea naproxen 500 mg tablet (Naprosyn) 500 mg PO BID PRN pain #20 tabs 05/28/21 acetaminophen 500 mg tablet 1,000 mg PO QID PRN pain #30 tabs 08/04/22 cyclobenzaprine 10 mg tablet 10 mg PO Q8H #20 tabs 03/07/23 oxycodone 5 mg tablet 5 mg PO Q6H PRN pain #20 tabs 03/07/23 Allergies Allergy/AdvReac Type Severity Reaction Status Date / Time No Known Allergies Allergy Verified 03/07/23 21:16 Review of Systems Review of Systems: Yes all other systems are reviewed and are negative [facility] Past Medical History Medical History Hyperlipidemia Hypertension PVC (premature ventricular contraction) Surgical History H/O hernia repair H/O tubal ligation History of appendectomy Family History Family History Father No problems noted. Mother Diabetes CVD (cardiovascular disease) Social History Social History Alcohol intake: never Patient Tobacco Use Status: Never used Tobacco Advance Directives: No Advance Directives Information Provided: Yes Physical Exam Vital Signs: Vital Signs: Last Vital Signs Temp 97.5 F 03/07/23 21:17 Pulse 68 03/07/23 21:17 Resp 18 03/07/23 21:17 BP 128/63 03/07/23 21:17 Pulse Ox 98 03/07/23 21:17 O2 Del Method Room Air 03/07/23 21:17 BMI result Body Mass Index 25.8 Appearance: Alert. Oriented X3. No acute distress. Eyes: No pallor or icterus ENT: Pharynx normal. Oral Mucosa moist Neck: Normal inspection. Neck supple. CVS: Normal heart rate and rhythm. Pulses normal. Respiratory: No respiratory distress. Equal air entry bilateral, no wheezing/rales/rhonchi Abdomen: Soft and nontender. Bowel sounds are present, no mass palpable, no CVA tenderness Skin: Skin warm and dry. Normal skin color. Normal skin turgor. Extremities: No lower extremity edema. No calf tenderness back: Diffuse lumbar paraspinal tenderness, SLR 90 degrees on right leg left is negative neurovascular intact deep tendon reflexes 2+ bilateral no motor weakness, sacral sensation intact Neuro: Oriented X 3. No motor deficit. No sensory deficit.No cerebellar signs , cranial nerves II-XII intact Medications Administered Discontinued Medications Generic Name Dose Route Start Last Admin Trade Name Freq PRN Reason Stop Dose Admin Cyclobenzaprine HCl 10 mg 03/07/23 21:55 03/07/23 22:07 Cyclobenzaprine Hcl 10 Mg Tablet PO 03/07/23 21:56 10 mg ONCE ONE Administration Oxycodone HCl 10 mg 03/07/23 22:04 03/07/23 22:13 Oxycodone Hcl Immed Release 5 Mg Tablet PO 03/07/23 22:05 10 mg ONCE ONE Administration Medical Decision Making Medical Decision Making [facility] Narrative: Patient ambulated in steady gait has chronic low back pain no warning signs of spinal cord impingement no signs of cauda equina will discharge patient home on oxycodone and Flexeril Discharge Plan Discharge Clinical Impression: Chronic low back pain Patient Disposition: Home, Self-Care Instructions: Chronic Back Pain (DC) Additional Instructions: Take Pain medication and muscle relaxant as prescribed Follow-up with pain clinic if not better Prescriptions: New oxycodone 5 mg tablet 5 mg PO Q6H PRN (Reason: pain) Qty: 20 0RF Rx Instructions: Partial Fill upon patient request. cyclobenzaprine 10 mg tablet 10 mg PO Q8H Qty: 20 0RF No Action cyclobenzaprine 10 mg tablet 10 mg PO TID PRN (Reason: muscle spasm) Qty: 10 0RF lidocaine [Lidoderm] 5 % adhesive patch,medicated 1 patch topical DAILY Qty: 15 0RF Rx Instructions: leave on most painful area for up to 12 hrs naproxen [Naprosyn] 500 mg tablet 500 mg PO BID PRN (Reason: pain) Qty: 20 0RF cyclobenzaprine 5 mg tablet 5 mg PO TID PRN (Reason: muscle spasm) Qty: 14 0RF Rx Instructions: this medication may cause drowsiness, no driving for 6 hours after taking lidocaine 5 % adhesive patch,medicated 1 patch topical DAILY PRN (Reason: pain in back) Qty: 15 0RF Rx Instructions: leave on most painful area for up to 12 hrs acetaminophen 500 mg tablet 1,000 mg PO QID PRN (Reason: pain) Qty: 30 0RF omeprazole 20 mg capsule,delayed release(DR/EC) 20 mg PO DAILY levothyroxine 50 mcg tablet 50 mcg PO DAILY simvastatin 40 mg tablet 40 mg PO BEDTIME metformin 1,000 mg tablet 1,000 mg PO BID lisinopril 30 mg tablet 30 mg PO DAILY metoprolol succinate 50 mg tablet extended release 24 hr 50 mg PO DAILY aspirin [Adult Low Dose Aspirin] 81 mg tablet,delayed release (DR/EC) 81 mg PO DAILY Jardiance 10 mg tablet 10 mg PO DAILY
[2023-03-07] MEDS: Cyclobenzaprine HCl 10 MG TABLET PO (22:07)
[2023-03-07] MEDS: oxyCODONE HCl Immed Release 5 MG TABLET 10 MG PO (22:13)
--- NOTE | 2023-03-07 22:21 | PC.NURSE ---
red, what appears to be sun exposed skin on hands and nose. pt reports she has been seen 3 times for this problem but no one is telling her anything . This RN asked if the patient has been getting a lot of sun lately since starting doxycycline to which the patient responded yes. This RN educated pt on sun exposure and taking doxycycline and how it can cause increased skin sensitivity and make it easier to burn
== END 2023-03-07 22:35 | disposition home or self-care (01) ==
PROVIDERS: Emergency Provider Internal Medicine; PCP Internal Medicine
DX: M54.50 Low back pain, unspecified (principal); G89.29 Other chronic pain; E78.5 Hyperlipidemia, unspecified; I10 Essential (primary) hypertension
CPT/HCPCS: 99283

== ENCOUNTER 2023-04-19 14:33 | Outpatient (REF) | payer OTHER, SELFPAY ==
[2023-04-19 15:17] LABS: Estimated Average Glucose 166 mg/dL; Hemoglobin A1c % 7.4 %
== END 2023-04-19 14:34 | disposition home or self-care (01) ==
LOC: HO.LAB 14:33
PROVIDERS: PCP Internal Medicine; Visit Provider Internal Medicine
DX: E11.9 Type 2 diabetes mellitus without complications (principal)
CPT/HCPCS: 36415; 83036

== ENCOUNTER 2023-07-24 09:13 | Outpatient (REF) | payer OTHER, SELFPAY ==
--- NOTE | ~2023-07-24 | US_ITS ---
EXAMINATION: US ABDOMEN LIMITED CLINICAL INFORMATION: Umbilical hernia without obstruction or gangrene. COMPARISON: CT abdomen and pelvis 08/04/2022. Ultrasound abdomen complete 11/18/2020. X-ray KUB 07/14/2015. TECHNIQUE: Real-time imaging of the periumbilical region. FINDINGS: Targeted ultrasound images were obtained by the salad chef of the area of concern as indicated by the patient in the periumbilical region in the area of reported possible umbilical hernia. Patient states history of hernia repair in this region 2007 per salad chef statement. Radiologist was not in attendance. Images were later provided for interpretation. There is a 3.7 x 1.8 x 3.3 cm hypoechoic superficial mass in the area of concern indicated by the patient in the periumbilical region characteristic of a hernia. Hernia orifice measures approximately 2.0 cm. Visualization limited. US/US abdomen limited IMPRESSION: Area indicated by patient in periumbilical region correlates with a hernia. CT scan recommended for further evaluation.
== END 2023-07-24 09:14 | disposition home or self-care (01) ==
LOC: HO.HMGCX 09:13
PROVIDERS: PCP Internal Medicine; Visit Provider Internal Medicine
DX: K42.9 Umbilical hernia without obstruction or gangrene (principal)
CPT/HCPCS: 76705

== ENCOUNTER 2023-07-30 08:59 | Emergency (ER) | payer OTHER, SELFPAY ==
--- NOTE | ~2023-07-30 | CT_ITS ---
EXAMINATION: CT ABDOMEN AND PELVIS WITHOUT CONTRAST CLINICAL INFORMATION: left-sided abdominal pain, kidney stone vs. diverticulitis. COMPARISON: 08/04/2022 TECHNIQUE: Multidetector volumetric imaging was performed from the superior aspect of the liver through the pubic symphysis. Sagittal and coronal reformatted images were obtained on the technologist's workstation. This CT examination was performed using dose optimization techniques as appropriate, variously including the following: *Automated exposure control *Adjustment of mA and/or kV according to patient size (this includes techniques or standardized protocols for targeted exams where dose is matched to indication/reason for exam; i.e. extremities or head) *Use of iterative reconstruction technique DLP: 506 mGy-cm FINDINGS: LUNG BASES: The visualized lung bases are unremarkable. LIVER, GALLBLADDER, AND BILIARY TREE: The liver is normal in size, shape, and attenuation. No focal hepatic lesion or biliary ductal dilatation is present. The gallbladder is unremarkable with no evidence of radiopaque gallstones, gallbladder wall thickening, or obvious pericholecystic inflammatory changes. PANCREAS: Unremarkable. SPLEEN: Unremarkable. ADRENAL GLANDS: Unremarkable. KIDNEYS AND URETERS: The kidneys normal in size and contour. There are 2 calcifications in the interpolar region of the right kidney measuring 6 mm and 2 mm in diameter. No left-sided renal or ureteral calculi. No hydronephrosis or hydroureter. No perinephric stranding. No appreciable renal lesions. BLADDER: Unremarkable. GASTROINTESTINAL TRACT: Stomach, small bowel, and colon are normal in caliber. No bowel wall thickening or surrounding inflammatory changes. Moderate colonic diverticulosis, most pronounced at the sigmoid. Appendix is surgically absent. No intraperitoneal free fluid or free air. ABDOMINAL WALL: Small fat-containing umbilical hernia. No bowel involvement. LYMPH NODES: Normal. VASCULAR: Unremarkable. PELVIC VISCERA: The uterus and adnexa are unremarkable. OSSEOUS STRUCTURES: Mild multilevel degenerative spondylosis in the lumbar spine. No acute fractures. CT/CT abdomen pelvis wo IV con IMPRESSION: 1. No acute intra-abdominal or intrapelvic abnormalities. 2. Nonobstructing right renal calculi. No evidence of obstructive uropathy. 3. Moderate colonic diverticulosis without evidence of acute diverticulitis. Fleischner guidelines were followed.
[2023-07-30 09:00] VITALS: BP 138/80; PULSE 77; RESP 14; TEMP 36.6; O2SAT 97; BMI 27.2
--- NOTE | 2023-07-30 09:33 | ED.ABDPAIN ---
HPI - Abdominal Pain General Chief Complaint: Abdominal Pain Stated Complaint: l side pain into back Time Seen by Provider: 07/30/23 09:26 Source: patient Mode of arrival: ambulatory Limitations: no limitations History of Present Illness HPI narrative: 63-year-old female came in for evaluation of left abdominal pain. Sharp left abdominal pain started since yesterday, pain is localized to the left lower quadrant area radiated to the left flank area, pain is constant since yesterday 06/04 in severity, no clear aggravating factors or relieving factor, no association with nausea, vomiting, or diarrhea. Had last bowel movement was yesterday and was normal with no blood. And passing flatus. Patient been having frequency urination with no dysuria or hematuria. past surgical history is significant for appendectomy and hernia repair. Related Data Home Medications Medication Instructions Recorded Confirmed aspirin 81 mg tablet,delayed 81 mg PO DAILY 10/06/20 10/30/22 release (Adult Low Dose Aspirin) levothyroxine 50 mcg tablet 50 mcg PO DAILY 10/06/20 10/30/22 lisinopril 30 mg tablet 30 mg PO DAILY 10/06/20 10/30/22 metformin 1,000 mg tablet 1,000 mg PO BID 10/06/20 10/30/22 metoprolol succinate 50 mg 50 mg PO DAILY 10/06/20 10/30/22 tablet,extended release 24 hr omeprazole 20 mg capsule,delayed 20 mg PO DAILY 10/06/20 10/30/22 release simvastatin 40 mg tablet 40 mg PO BEDTIME 10/06/20 10/30/22 empagliflozin 10 mg tablet 10 mg PO DAILY 10/30/22 10/30/22 (Jardiance) Previous Rx's Medication Instructions Recorded cyclobenzaprine 10 mg tablet 10 mg PO TID PRN muscle spasm #10 04/20/21 tabs lidocaine 5 % topical patch 1 patch topical DAILY #15 ea 04/20/21 (Lidoderm) cyclobenzaprine 5 mg tablet 5 mg PO TID PRN muscle spasm #14 05/28/21 tabs lidocaine 5 % topical patch 1 patch topical DAILY PRN pain 05/28/21 in back #15 ea naproxen 500 mg tablet (Naprosyn) 500 mg PO BID PRN pain #20 tabs 05/28/21 acetaminophen 500 mg tablet 1,000 mg PO QID PRN pain #30 tabs 08/04/22 cyclobenzaprine 10 mg tablet 10 mg PO Q8H #20 tabs 03/07/23 oxycodone 5 mg tablet 5 mg PO Q6H PRN pain #20 tabs 03/07/23 Allergies Allergy/AdvReac Type Severity Reaction Status Date / Time No Known Allergies Allergy Verified 07/30/23 09:04 Review of Systems Review of Systems All other systems are reviewed and are negative Constitutional: Reports as per HPI and Reports no additional constitutional complaints Eyes: Reports as per HPI and Reports no additional eye complaints Reports system reviewed and no additional complaints, except as documented Cardiovascular: Reports as per HPI and Reports no additional cardiovascular complaints Respiratory: Reports as per HPI and Reports no additional respiratory complaints Gastrointestinal: Reports as per HPI and Reports no additional gastrointestinal complaints Genitourinary: Reports no additional female genitourinary complaints Musculoskeletal: Reports no additional musculoskeletal complaints Skin/Breast: Reports system reviewed and no additional complaints, except as docu Psychiatric: Reports no additional psychiatric complaints Endocrine: Reports no additional endocrine complaints Hematologic/Lymphatic: Reports no additional hematologic/lymphatic complaints Allergic/Immunologic: Reports no additional allergic/immunologic complaints Reports system reviewed and no additional complaints, except as documented and Reports Abnormal speech present [facility] Past Medical History Medical History Hyperlipidemia Hypertension PVC (premature ventricular contraction) Surgical History H/O hernia repair H/O tubal ligation History of appendectomy Family History Family History Father No problems noted. Mother Diabetes CVD (cardiovascular disease) Social History Social History Alcohol intake: never Patient Tobacco Use Status: Never used Tobacco Smoked in Last 30 Days: No Use of substances other than those prescribed or required for medical reasons: No Advance Directives: No Advance Directives Information Provided: No Physical Exam ED Vital Signs: Vital Signs - 24 hr 07/30/23 09:00 07/30/23 09:52 Temperature 97.8 F 98.1 F Pulse Rate 77 65 Respiratory Rate 14 14 Blood Pressure 138/80 136/69 Pulse Oximetry 97 97 Oxygen Delivery Method Room Air Room Air BMI result Body Mass Index 27.2 vital signs have been reviewed as appeared to be correct. Blood pressure normal. Heart rate normal. Respiration rate normal. Temperature normal. Oxygen saturation normal. Appearance: Alert. Oriented X3. No acute distress. Head: Normal external exam. Normocephalic. Atraumatic. No Leon signs noted. No raccoon eyes noted Eyes: PERRLA. EOMI. Conjunctiva and sclera normal. Eyelids normal. ENT: TM's Normal. Pharynx normal. Uvula midline. Moist mucous membranes. No trismus noted. No drooling noted. No muffled voice noted. Neck: Normal inspection. Neck supple. FROM. No adenopathy. Thyroid Normal. No meningeal signs. No neck mass noted. CVS: Normal heart rate and rhythm. Heart sound normal. No murmurs noted. Pulses normal throughout. Respiratory: No respiratory distress. Painless inspiration. Breath sounds normal. No wheezes/rales/rhonchi noted. Chest nontender. No accessory muscle usage noted or decreased air movement noted. Abdomen: Soft , left lower quadrant tenderness, no rebound tenderness, no guarding. Bowel sounds normal in all 4 quadrants. No distention noted. No organomegaly noted. No visible injury noted. Back: No CVA tenderness. Full range of motion noted. Skin: Skin warm and dry. Normal skin color. Normal skin turgor. No rashes/lesions/lacerations noted. Extremities: No lower extremity edema. Extremities exhibit normal range of motion. Extremities nontender. Neuro: Oriented X 3. Cranial nerve exam: II-XII are grossly intact No motor deficit. No sensory deficit. Reflexes normal. Course Course Course Narrative: This 63-year-old female came in with left-sided abdominal pain, patient has unremarkable labs/UA / CT abdomen and pelvis with no acute intra abdominal pathology. Well discharge with reassurance. Medical Decision Making Differential Diagnosis Differential Diagnoses: The differential diagnosis associated with the presentation includes ( UTI, kidney stone, diverticulitis, colitis, SBO, electrolyte abnormality, severe anemia.) Admission/Observation Consideration of admission/observation: Escalation of care including admission/observation considered Lab Data MDM Lab Attestation statement: I reviewed the patient's lab results. 07/30/23 09:50 07/30/23 09:50 Labs: Lab Results 07/30/23 07/30/23 07/30/23 Range/Units 09:50 09:50 09:50 WBC 8.8 (4.8-10.8) X10*3/uL RBC 5.01 (4.20-5.50) X10*6/uL Hgb 14.0 (12.0-16.0) g/dl Hct 44.7 (37.0-47.0) % MCV 89.2 (80.0-98.0) fL MCH 27.9 (27.0-33.0) pg MCHC 31.3 (31.0-35.0) g/dl RDW 14.3 (11.0-16.0) % Plt Count 294 (160-400) X10*3/uL MPV 10.6 (9.4-12.3) fL Immature Gran % (Auto) 0.2 (0.0-0.4) % Neut % (Auto) 50.7 (45-73) % Lymph % (Auto) 37.3 (20-40) % Frederick % (Auto) 7.2 (2-11) % Eos % (Auto) 3.6 (0-4) % Baso % (Auto) 1.0 (0-2) % Lymph # (Auto) 3.3 (1.2-4.9) X10*3/uL Frederick # (Auto) 0.6 (0.1-1.2) X10*3/uL Eos # (Auto) 0.3 (0.0-0.4) X10*3/uL Baso # (Auto) 0.1 (0.0-0.2) X10*3/uL Abs Immat Gran (auto) 0.02 (0.00-0.03) X10*3/uL Absolute Neuts (auto) 4.4 (2.0-8.3) x10*3/uL Absolute Nucleated RBC 0.000 (0.0-0.012) X10*3/uL Nucleated RBC % (auto) 0.0 (0.0-0.2) /100WBC Sodium 141 (135-145) mmol/L Potassium 4.6 (3.3-5.1) mmol/L Chloride 106 (96-108) mmol/L Carbon Dioxide 28 (22-29) mmol/L Anion Gap 12 (12-20) BUN 12 (9-16) mg/dL Creatinine 0.79 (0.5-1.4) mg/dL Estim Creat Clear Calc 75.4 Estimated GFR > 60 Random Glucose 151 H (60-115) mg/dL Calcium 10.2 (8.4-10.2) mg/dL Total Bilirubin 0.3 (0.0-1.0) mg/dL Direct Bilirubin 0.1 (0.0-0.5) mg/dL AST 25 (5-31) U/L ALT 24 (0-31) U/L Alkaline Phosphatase 77 (39-117) U/L Troponin I High Sens < 2.7 (<3.5-17.0) ng/L Total Protein 7.8 (6.5-8.0) g/dL Albumin 4.2 (3.5-5.0) g/dL Lipase 27 (8-78) U/L Urine Color Urine Appearance Urine pH (5.0-9.0) Ur Specific [place] (1.005-1.025) Urine Protein (Neg-Trace) mg/dL Urine Glucose (UA) (Negative) mg/dL Urine Ketones (Negative) mg/dL Urine Blood (Negative) Urine Nitrite (Negative) Ur Leukocyte Esterase (Negative) Urine RBC (0-2) /HPF Urine WBC (0-5) /HPF Ur Squamous Epith Cells (0-2) /HPF Urine Bacteria (None Seen) Hyaline Casts (0-2) /LPF 07/30/23 Range/Units 09:50 WBC (4.8-10.8) X10*3/uL RBC (4.20-5.50) X10*6/uL Hgb (12.0-16.0) g/dl Hct (37.0-47.0) % MCV (80.0-98.0) fL MCH (27.0-33.0) pg MCHC (31.0-35.0) g/dl RDW (11.0-16.0) % Plt Count (160-400) X10*3/uL MPV (9.4-12.3) fL Immature Gran % (Auto) (0.0-0.4) % Neut % (Auto) (45-73) % Lymph % (Auto) (20-40) % Frederick % (Auto) (2-11) % Eos % (Auto) (0-4) % Baso % (Auto) (0-2) % Lymph # (Auto) (1.2-4.9) X10*3/uL Frederick # (Auto) (0.1-1.2) X10*3/uL Eos # (Auto) (0.0-0.4) X10*3/uL Baso # (Auto) (0.0-0.2) X10*3/uL Abs Immat Gran (auto) (0.00-0.03) X10*3/uL Absolute Neuts (auto) (2.0-8.3) x10*3/uL Absolute Nucleated RBC (0.0-0.012) X10*3/uL Nucleated RBC % (auto) (0.0-0.2) /100WBC Sodium (135-145) mmol/L Potassium (3.3-5.1) mmol/L Chloride (96-108) mmol/L Carbon Dioxide (22-29) mmol/L Anion Gap (12-20) BUN (9-16) mg/dL Creatinine (0.5-1.4) mg/dL Estim Creat Clear Calc Estimated GFR Random Glucose (60-115) mg/dL Calcium (8.4-10.2) mg/dL Total Bilirubin (0.0-1.0) mg/dL Direct Bilirubin (0.0-0.5) mg/dL AST (5-31) U/L ALT (0-31) U/L Alkaline Phosphatase (39-117) U/L Troponin I High Sens (<3.5-17.0) ng/L Total Protein (6.5-8.0) g/dL Albumin (3.5-5.0) g/dL Lipase (8-78) U/L Urine Color Yellow Urine Appearance Clear Urine pH 5.5 (5.0-9.0) Ur Specific [place] 1.025 (1.005-1.025) Urine Protein Negative (Neg-Trace) mg/dL Urine Glucose (UA) >=1000 H (Negative) mg/dL Urine Ketones Negative (Negative) mg/dL Urine Blood Negative (Negative) Urine Nitrite Negative (Negative) Ur Leukocyte Esterase Negative (Negative) Urine RBC 0-2 (0-2) /HPF Urine WBC 0-5 (0-5) /HPF Ur Squamous Epith Cells 0-2 (0-2) /HPF Urine Bacteria None Seen (None Seen) Hyaline Casts 0-2 (0-2) /LPF Independent Interpretation I performed an independent interpretation of an: CT Scan ( Abdomen and pelvis: No acute intra-abdominal pathology.) Radiology Impression Discussion of test interpretation with radiology: I have reviewed the radiologist's reading. (1. No acute intra-abdominal or intrapelvic abnormalities. 2. Nonobstructing right renal calculi. No evidence of obstructive uropathy. 3. Moderate colonic diverticulosis without evidence of acute diverticulitis. ) Medications Administered Discontinued Medications Generic Name Dose Route Start Last Admin Trade Name Freq PRN Reason Stop Dose Admin Sodium Chloride 1,000 mls @ 999 mls/hr 07/30/23 09:27 07/30/23 10:03 Ns IV 07/30/23 10:27 999 mls/hr .Q1H1M ONE Administration Discharge Plan Discharge Clinical Impression: Abdominal pain Patient Disposition: Home, Self-Care Instructions: Abdominal Pain (ED) Prescriptions: No Action cyclobenzaprine 10 mg tablet 10 mg PO TID PRN (Reason: muscle spasm) Qty: 10 0RF lidocaine [Lidoderm] 5 % adhesive patch,medicated 1 patch topical DAILY Qty: 15 0RF Rx Instructions: leave on most painful area for up to 12 hrs naproxen [Naprosyn] 500 mg tablet 500 mg PO BID PRN (Reason: pain) Qty: 20 0RF cyclobenzaprine 5 mg tablet 5 mg PO TID PRN (Reason: muscle spasm) Qty: 14 0RF Rx Instructions: this medication may cause drowsiness, no driving for 6 hours after taking lidocaine 5 % adhesive patch,medicated 1 patch topical DAILY PRN (Reason: pain in back) Qty: 15 0RF Rx Instructions: leave on most painful area for up to 12 hrs acetaminophen 500 mg tablet 1,000 mg PO QID PRN (Reason: pain) Qty: 30 0RF oxycodone 5 mg tablet 5 mg PO Q6H PRN (Reason: pain) Qty: 20 0RF Rx Instructions: Partial Fill upon patient request. cyclobenzaprine 10 mg tablet 10 mg PO Q8H Qty: 20 0RF omeprazole 20 mg capsule,delayed release(DR/EC) 20 mg PO DAILY levothyroxine 50 mcg tablet 50 mcg PO DAILY simvastatin 40 mg tablet 40 mg PO BEDTIME metformin 1,000 mg tablet 1,000 mg PO BID lisinopril 30 mg tablet 30 mg PO DAILY metoprolol succinate 50 mg tablet extended release 24 hr 50 mg PO DAILY aspirin [Adult Low Dose Aspirin] 81 mg tablet,delayed release (DR/EC) 81 mg PO DAILY Jardiance 10 mg tablet 10 mg PO DAILY Referrals: Chriss Mehta MD [Primary Care Provider] -
[2023-07-30 09:52] VITALS: BP 136/69; PULSE 65; RESP 14; TEMP 36.7; O2SAT 97
[2023-07-30 09:54] LABS: MANUAL DIFF FLAG NO
[2023-07-30 09:55] LABS: Basophils Absolute Auto 0.1 X10*3/uL (0.0-0.2); Eosinophils Absolute Auto 0.3 X10*3/uL (0.0-0.4); Eosinophils Percent Auto 3.6 % (0-4); Hematocrit 44.7 % (37.0-47.0); Imm Gran Abs Auto 0.02 X10*3/uL (0.00-0.03); Imm Gran Pct Auto 0.2 % (0.0-0.4); Lymphocytes Absolute Auto 3.3 X10*3/uL (1.2-4.9); Lymphocytes Percent Auto 37.3 % (20-40); Mean Corpuscular HGB Conc 31.3 g/dl (31.0-35.0); Mean Corpuscular Hemoglobin 27.9 pg (27.0-33.0); Mean Corpuscular Volume 89.2 fL (80.0-98.0); Mean Platelet Volume 10.6 fL (9.4-12.3); Monocytes Absolute Auto 0.6 X10*3/uL (0.1-1.2); Monocytes Percent Auto 7.2 % (2-11); Neutrophils Absolute Auto 4.4 x10*3/uL (2.0-8.3); Neutrophils Percent Auto 50.7 % (45-73); Platelet Count 294 X10*3/uL (160-400); Red Blood Count 5.01 X10*6/uL (4.20-5.50); Red Cell Distribution Width 14.3 % (11.0-16.0); White Blood Count 8.8 X10*3/uL (4.8-10.8)
[2023-07-30 09:56] LABS: Appearance Urine Clear; Color Urine Yellow; Glucose Urine UA >=1000 mg/dL (Negative); Leukocyte Esterase Urine Negative (Negative); Nitrite Urine Negative (Negative); PH 5.5 (5.0-9.0); Specific Gravity - Urine 1.025 (1.005-1.025); UMIC TRIGGER UACC YES; Urine Blood Negative (Negative); Urine Ketones Negative (Negative); Urine Protein Negative (Neg-Trace)
--- NOTE | 2023-07-30 10:00 | PC.NURSE ---
pt is alert and oriented, skin pwd, respirations even and unlabored. pt reports left lower abd pain that comes and goes and radiates to the back, denies n/v and denies urinary symptoms but did have some diarrhea yesterday
[2023-07-30 10:03] LABS: Bacteria Urine None Seen (None Seen); Hyaline Casts Urine 0-2 /LPF (0-2); RBC Urine 0-2 /HPF (0-2); Squamous Epithelial Cell Urine 0-2 /HPF (0-2); WBC Urine 0-5 /HPF (0-5)
[2023-07-30] MEDS: 0.9 % Sodium Chloride 1,000 ML 999 ML IV (10:03)
[2023-07-30 10:10] LABS: Alanine Aminotransferase 24 U/L (0-31); Albumin Level 4.2 g/dL (3.5-5.0); Alkaline Phosphatase 77 U/L (39-117); Anion Gap 12 (12-20); Aspartate Amino Transferase 25 U/L (5-31); Bilirubin Direct 0.1 mg/dL (0.0-0.5); Bilirubin Total 0.3 mg/dL (0.0-1.0); Blood Urea Nitrogen 12 mg/dL (9-16); Calcium 10.2 mg/dL (8.4-10.2); Carbon Dioxide 28 mmol/L (22-29); Chloride 106 mmol/L (96-108); Creatinine Clr Calc Pharmacy 75.4; Estimated Glomerular Filt Rate > 60; Glucose Random 151 mg/dL (60-115); Lipase 27 U/L (8-78); Potassium 4.6 mmol/L (3.3-5.1); Sodium 141 mmol/L (135-145); Total Protein 7.8 g/dL (6.5-8.0)
[2023-07-30 10:17] LABS: Troponin-I High Sensitivity < 2.7 ng/L (<3.5-17.0)
[2023-07-30 11:22] VITALS: BP 137/68; PULSE 66; RESP 16
== END 2023-07-30 11:23 | disposition home or self-care (01) ==
PROVIDERS: Emergency Provider Emergency Medicine; PCP Internal Medicine
DX: M54.50 Low back pain, unspecified (principal); R10.32 Left lower quadrant pain; R35.0 Frequency of micturition; Z79.899 Other long term (current) drug therapy
CPT/HCPCS: 36415; 74176; 80048; 80076; 81001; 83690; 84484; 85025; 99284

== ENCOUNTER 2023-08-29 10:21 | Outpatient (REF) | payer OTHER, SELFPAY ==
[2023-08-29 11:47] LABS: Estimated Average Glucose 166 mg/dL; Hemoglobin A1c % 7.4 % (<6.0)
[2023-08-29 12:06] LABS: Alanine Aminotransferase 21 U/L (0-31); Alkaline Phosphatase 91 U/L (39-117); Anion Gap 13 (12-20); Aspartate Amino Transferase 22 U/L (5-31); Bilirubin Total 0.3 mg/dL (0.0-1.0); Blood Urea Nitrogen 13 mg/dL (9-16); Calcium 10.2 mg/dL (8.4-10.2); Carbon Dioxide 23 mmol/L (22-29); Chloride 107 mmol/L (96-108); Estimated Glomerular Filt Rate > 60; Glucose Random 259 mg/dL (60-115); Sodium 139 mmol/L (135-145); Total Protein 7.6 g/dL (6.5-8.0)
== END 2023-08-29 10:22 | disposition home or self-care (01) ==
LOC: HO.LAB 10:21
PROVIDERS: PCP Internal Medicine; Visit Provider Internal Medicine
DX: E11.9 Type 2 diabetes mellitus without complications (principal)
CPT/HCPCS: 36415; 80053; 83036

== ENCOUNTER 2023-10-31 15:08 | Outpatient (AMB) | payer OTHER, SELFPAY ==
[2023-10-31 15:10] VITALS: BP 124/60; PULSE 64; BMI 28.0
--- NOTE | 2023-10-31 15:10 | A.OFFVIS_ITS ---
Intake Vital Signs 10/31/23 15:10 Height 5 ft 5 in Weight 168 lb 6.931 oz BMI 28.0 BP 124/60 Blood Pressure Location Lt brachial Position Sitting Pulse 64 Pulse Source Pulse Oximeter Intake Visit Reasons: 1 yr f/up Intake Note: 1 yr f/up patient its fine Tank Pumper Panelboard Required: No Accompanied by: Self / Same As Patient Allergies No Known Allergies Allergy (Verified 07/30/23 09:04) Medication List - Last Reconciled 10/31/23 by Jluis Mena MD aspirin (Adult Low Dose Aspirin) 81 mg PO DAILY levothyroxine 50 mcg PO DAILY lidocaine 5% 1 patch topical DAILY PRN lidocaine 5% (Lidoderm) 1 patch topical DAILY lisinopril 30 mg PO DAILY metformin 1,000 mg PO BID metoprolol succinate ER 50 mg PO DAILY naproxen (Naprosyn) 500 mg PO BID PRN omeprazole 20 mg PO DAILY simvastatin 40 mg PO BEDTIME HPI HPI Comments History of Present Illness Details Here for follow-up. She was found to have an abnormal heart rhythm during a routine follow-up visit. She said she had some palpitations off and on at nighttime when she was laying in bed. During the day she is active and works as a [employer]. She does not have much symptoms during the day except occasionally when she is sitting down. She has no history of syncope. She has no chest discomfort or shortness of breath. EKG showed sinus rhythm, LVH with repolarization changes and QTC of 471 millisecond. She was sent for a Holter monitor by Dr. Walters which showed frequent premature ventricle complexes. She had 7% PVCs in 24 hours. She was then sent for a stress test. Stress echo did not show any regional wall motion abnormalities and was essentially normal. Also during exercise her PVCs burden decreased. She has been feeling well without any palpitations. She was started on metoprolol succinate. She has been doing fine since then. She still gets off and on palpitations but they are not bothersome to her. On follow up she continues to be stable. She has no significant change in her symptoms and is not bothered by any symptoms. 10/31/2023. She returns for follow-up. She has been doing well. Denying palpitations. No chest pain shortness of breath. [facility] Medical History Hyperlipidemia Hypertension PVC (premature ventricular contraction) Surgical History H/O hernia repair H/O tubal ligation History of appendectomy Family History Father No problems noted. Mother Diabetes CVD (cardiovascular disease) Social History Alcohol intake: never Patient Tobacco Use Status: Never used Tobacco Review of Systems Const Reports chills, Reports fatigue, Reports fever(s), Reports frequent falls, Reports weakness, Reports weight gain and Reports weight loss ENT Reports dizziness Card Reports chest pain, Reports leg edema, Reports lightheadedness, Reports palpitations, Reports dyspnea and Reports dyspnea on exertion Resp Reports cough, Reports dyspnea and Reports dyspnea on exertion GI Reports hematochezia Musc Reports abnormal gait, Reports muscle weakness, Reports numbness, Reports radiating pain into limb and Reports tingling Neuro Reports abnormal gait, Reports dizziness, Reports frequent falls, Reports numbness, Reports tingling and Reports weakness Endo Reports fatigue and Reports palpitations Physical Exam Vital Signs: BMI result Body Mass Index 28.0 GENERAL APPEARANCE: in no acute distress, well developed, well nourished. NECK/THYROID: no carotid bruit, no jugular venous distention. SKIN: warm and dry. HEART: no murmurs, regular rate and rhythm. LUNGS: clear to auscultation bilaterally. ABDOMEN: normal, bowel sounds present, soft, nontender, nondistended. EXTREMITIES: no edema. PERIPHERAL PULSES: equal. NEUROLOGIC: nonfocal, alert and oriented. PSYCH: mood/affect full range. Assessment & Plan Assessment & Plan (1) PVC (premature ventricular contraction): Code(s): I49.3 - Ventricular premature depolarization (2) Hypertension: Code(s): I10 - Essential (primary) hypertension (3) Hyperlipidemia: Code(s): E78.5 - Hyperlipidemia, unspecified Plan Pleasant 83 year female who is here for follow-up. Hypertension steven she is stable. She is taking lisinopril and metoprolol succinate with good blood pressure control. Previously was complaining of palpitations which was thought to be due to premature ventricular complexes. This has improved after Toprol-XL and she has no symptoms on follow-up. On simvastatin 40 mg with previous LDL cholesterol of 79. She should have repeat fasting lipid panel once a year. Follow-up with us in 1 year. Thank you for allowing me to participate in the care of your patient. Please feel free to contact me if you have any questions. Coding Level of Care Code Est Pt Level 3 (14133) Diagnoses PVC (premature ventricular contraction) I49.3 Hypertension I10 Hyperlipidemia E78.5
== END 2023-10-31 15:23 | disposition home or self-care (01) ==
PROVIDERS: Visit Provider Internal Medicine Cardiovascular Disease
DX: I49.3 Ventricular premature depolarization (principal); I10 Essential (primary) hypertension; E78.5 Hyperlipidemia, unspecified
CPT/HCPCS: 99213

== ENCOUNTER → 2023-10-31 15:08 | Outpatient (BNVA) | payer OTHER, SELFPAY | PROVIDERS: Visit Provider Internal Medicine Cardiovascular Disease ==

== ENCOUNTER 2023-11-12 11:15 | Emergency (ER) | payer OTHER, SELFPAY ==
--- NOTE | ~2023-11-12 | XR_ITS ---
EXAMINATION: XR CHEST CLINICAL INFORMATION: Chest pain COMPARISON: Previous chest x-ray January 2023 TECHNIQUE: 2 views of the chest were obtained. FINDINGS: No significant abnormality is noted involving the heart, lungs, mediastinum, bony thorax or soft tissues. XR/XR chest 2V IMPRESSION: Unremarkable examination.
--- NOTE | 2023-11-12 11:16 | ECG_ITS ---
Test Reason : chest pain Blood Pressure : / mmHG Vent. Rate : 076 BPM Atrial Rate : 076 BPM P-R Int : 148 ms QRS Dur : 086 ms QT Int : 376 ms P-R-T Axes : 045 -05 043 degrees QTc Int : 423 ms Normal sinus rhythm with sinus arrhythmia Minimal voltage criteria for LVH, may be normal variant ( R in aVL ) Nonspecific ST abnormality Abnormal ECG When compared with ECG of 08-FEB-2023 16:56, No significant change was found Referred By: Felicia Mendes Electronically Signed By:LISANDRA DIAZ MD
[2023-11-12 11:45] VITALS: BP 143/71; PULSE 77; RESP 20; TEMP 36.4; O2SAT 97; BMI 26.6
--- NOTE | 2023-11-12 11:46 | ED.CHESTPAIN ---
HPI - Chest Pain General Chief Complaint: Chest Pain Stated Complaint: chest pain Time Seen by Provider: 11/12/23 17:56 Source: patient Mode of arrival: ambulatory Limitations: no limitations History of Present Illness HPI narrative: Patient 63 years old with history of hypertension hyperlipidemia palpitation , Holter monitoring showing PVCs last episode of palpitation was about 6 months ago seen auto service station attendant on 10/31/23 comes here as for last-2 days episodes of making her feeling dizzy which never used to happen before episode lasting only for few minutes feeling sharp pain during the episodes Related Data Home Medications Medication Instructions Recorded Confirmed aspirin 81 mg tablet,delayed 81 mg PO DAILY 10/06/20 10/31/23 release (Adult Low Dose Aspirin) levothyroxine 50 mcg tablet 50 mcg PO DAILY 10/06/20 10/30/22 lisinopril 30 mg tablet 30 mg PO DAILY 10/06/20 10/31/23 metformin 1,000 mg tablet 1,000 mg PO BID 10/06/20 10/31/23 metoprolol succinate 50 mg 50 mg PO DAILY 10/06/20 10/31/23 tablet,extended release 24 hr omeprazole 20 mg capsule,delayed 20 mg PO DAILY 10/06/20 10/31/23 release simvastatin 40 mg tablet 40 mg PO BEDTIME 10/06/20 10/31/23 Previous Rx's Medication Instructions Recorded lidocaine 5 % topical patch 1 patch topical DAILY #15 ea 04/20/21 (Lidoderm) lidocaine 5 % topical patch 1 patch topical DAILY PRN pain 05/28/21 in back #15 ea naproxen 500 mg tablet (Naprosyn) 500 mg PO BID PRN pain #20 tabs 05/28/21 Allergies Allergy/AdvReac Type Severity Reaction Status Date / Time No Known Allergies Allergy Verified 07/30/23 09:04 [facility] Past Medical History Medical History Hyperlipidemia Hypertension PVC (premature ventricular contraction) Surgical History History of appendectomy H/O tubal ligation H/O hernia repair Family History Family History Father No problems noted. Mother Diabetes CVD (cardiovascular disease) Social History Social History Alcohol intake: never Patient Tobacco Use Status: Never used Tobacco Smoked in Last 30 Days: No Use of substances other than those prescribed or required for medical reasons: No Advance Directives: No Advance Directives Information Provided: No Physical Exam Vital Signs: Vital Signs: Last Vital Signs Temp 98.6 F 11/12/23 18:13 Pulse 73 11/12/23 18:13 Resp 16 11/12/23 18:13 BP 121/65 11/12/23 18:13 Pulse Ox 97 11/12/23 18:13 O2 Del Method Room Air 11/12/23 18:13 BMI result Body Mass Index 26.6 Course Course Course Narrative: This is an RME: Additional HPI, ROS, PE not included below will be deferred to primary provider. This is a [id number]-female, with a hx of HLD, hypothyroidism, DM, HTN, PVCs, presenting to the ER with complaints of intermittent chest pain since yesterday. Reports that she has had 3-4 episodes yesterday, twice yesterday. Chest pain is sharp. Reports some headache and lightheaded. She is asymptomatic at this time. Plan: EKG, Labs, CXR Medical Decision Making Medical Decision Making [facility] Narrative: Patient with history of PVCs came with history of palpitation with atypical chest workup is negative no arrhythmias noticed during stay in the ER patient just had follow-up with auto service station attendant week ago will follow-up for further evaluation Differential Diagnosis Differential Diagnoses: The differential diagnosis associated with the presentation includes Atrial fibrillation/atrial flutter/PVCs Admission/Observation Consideration of admission/observation: Escalation of care including admission/observation considered Lab Data [facility] Lab Attestation statement: I reviewed the patient's lab results. 11/12/23 11:54 11/12/23 11:54 Labs: Lab Results 11/12/23 Range/Units 11:54 WBC 8.9 (4.8-10.8) X10*3/uL RBC 5.04 (4.20-5.50) X10*6/uL Hgb 13.8 (12.0-16.0) g/dl Hct 44.8 (37.0-47.0) % MCV 88.9 (80.0-98.0) fL MCH 27.4 (27.0-33.0) pg MCHC 30.8 L (31.0-35.0) g/dl RDW 13.8 (11.0-16.0) % Plt Count 265 (160-400) X10*3/uL MPV 10.9 (9.4-12.3) fL Immature Gran % (Auto) 0.2 (0.0-0.4) % Neut % (Auto) 64.7 (45-73) % Lymph % (Auto) 24.7 (20-40) % [place] % (Auto) 7.5 (2-11) % Eos % (Auto) 2.0 (0-4) % Baso % (Auto) 0.9 (0-2) % Lymph # (Auto) 2.2 (1.2-4.9) X10*3/uL [place] # (Auto) 0.7 (0.1-1.2) X10*3/uL Eos # (Auto) 0.2 (0.0-0.4) X10*3/uL Baso # (Auto) 0.1 (0.0-0.2) X10*3/uL Abs Immat Gran (auto) 0.02 (0.00-0.03) X10*3/uL Absolute Neuts (auto) 5.8 (2.0-8.3) x10*3/uL Absolute Nucleated RBC 0.000 (0.0-0.012) X10*3/uL Nucleated RBC % (auto) 0.0 (0.0-0.2) /100WBC Sodium 141 (135-145) mmol/L Potassium 3.8 (3.3-5.1) mmol/L Chloride 108 (96-108) mmol/L Carbon Dioxide 23 (22-29) mmol/L Anion Gap 14 (12-20) BUN 11 (9-16) mg/dL Creatinine 0.71 (0.5-1.4) mg/dL Estim Creat Clear Calc 83.0 Estimated GFR > 60 Random Glucose 129 H (60-115) mg/dL Calcium 10.0 (8.4-10.2) mg/dL Magnesium 1.9 (1.6-2.6) mg/dL Total Bilirubin 0.5 (0.0-1.0) mg/dL Direct Bilirubin 0.2 (0.0-0.5) mg/dL AST 25 (5-31) U/L ALT 23 (0-31) U/L Alkaline Phosphatase 77 (39-117) U/L Troponin I High Sens < 2.7 (<3.5-17.0) ng/L Total Protein 7.9 (6.5-8.0) g/dL Albumin 4.2 (3.5-5.0) g/dL Influenza Type A (PCR) NEGATIVE (Negative) Influenza Type B (PCR) NEGATIVE (Negative) RSV RNA Qual (PCR) NEGATIVE (Negative) SARS-CoV-2 RNA (RT-PCR) NEGATIVE (Negative) Independent Interpretation I performed an independent interpretation of an: EKG Interpretation: Normal sinus rhythm heart rate 76 beats per minute LVH nonspecific ST T wave changes and no acute ischemia no arrhythmia Discharge Plan Discharge Clinical Impression: PVC (premature ventricular contraction), Chest pain Patient Disposition: Home, Self-Care Instructions: Chest Pain (ED), Premature Ventricular Contractions (ED) Additional Instructions: Avoid caffeine drinks Follow-up with auto service station attendant for further evaluation including event monitoring/Holter monitor Report to the ER if prolong palpitation episode/syncope episode Prescriptions: No Action lidocaine [Lidoderm] 5 % adhesive patch,medicated 1 patch topical DAILY Qty: 15 0RF Rx Instructions: leave on most painful area for up to 12 hrs naproxen [Naprosyn] 500 mg tablet 500 mg PO BID PRN (Reason: pain) Qty: 20 0RF lidocaine 5 % adhesive patch,medicated 1 patch topical DAILY PRN (Reason: pain in back) Qty: 15 0RF Rx Instructions: leave on most painful area for up to 12 hrs omeprazole 20 mg capsule,delayed release(DR/EC) 20 mg PO DAILY levothyroxine 50 mcg tablet 50 mcg PO DAILY simvastatin 40 mg tablet 40 mg PO BEDTIME metformin 1,000 mg tablet 1,000 mg PO BID lisinopril 30 mg tablet 30 mg PO DAILY metoprolol succinate 50 mg tablet extended release 24 hr 50 mg PO DAILY aspirin [Adult Low Dose Aspirin] 81 mg tablet,delayed release (DR/EC) 81 mg PO DAILY Interventions: ED Discharge Assessment Last Done: 11/12/23 19:03 Discharge Date/Time: 11/12/23 19:04
[2023-11-12 11:58] LABS: MANUAL DIFF FLAG NO
[2023-11-12 12:00] LABS: Basophils Absolute Auto 0.1 X10*3/uL (0.0-0.2); Basophils Percent Auto 0.9 % (0-2); Eosinophils Absolute Auto 0.2 X10*3/uL (0.0-0.4); Hematocrit 44.8 % (37.0-47.0); Hemoglobin 13.8 g/dl (12.0-16.0); Imm Gran Abs Auto 0.02 X10*3/uL (0.00-0.03); Imm Gran Pct Auto 0.2 % (0.0-0.4); Lymphocytes Absolute Auto 2.2 X10*3/uL (1.2-4.9); Lymphocytes Percent Auto 24.7 % (20-40); Mean Corpuscular HGB Conc 30.8 g/dl (31.0-35.0); Mean Corpuscular Hemoglobin 27.4 pg (27.0-33.0); Mean Corpuscular Volume 88.9 fL (80.0-98.0); Mean Platelet Volume 10.9 fL (9.4-12.3); Monocytes Absolute Auto 0.7 X10*3/uL (0.1-1.2); Monocytes Percent Auto 7.5 % (2-11); Neutrophils Absolute Auto 5.8 x10*3/uL (2.0-8.3); Neutrophils Percent Auto 64.7 % (45-73); Platelet Count 265 X10*3/uL (160-400); Red Blood Count 5.04 X10*6/uL (4.20-5.50); Red Cell Distribution Width 13.8 % (11.0-16.0); White Blood Count 8.9 X10*3/uL (4.8-10.8)
[2023-11-12 12:14] LABS: Alanine Aminotransferase 23 U/L (0-31); Albumin Level 4.2 g/dL (3.5-5.0); Alkaline Phosphatase 77 U/L (39-117); Anion Gap 14 (12-20); Aspartate Amino Transferase 25 U/L (5-31); Bilirubin Direct 0.2 mg/dL (0.0-0.5); Bilirubin Total 0.5 mg/dL (0.0-1.0); Blood Urea Nitrogen 11 mg/dL (9-16); Carbon Dioxide 23 mmol/L (22-29); Chloride 108 mmol/L (96-108); Estimated Glomerular Filt Rate > 60; Glucose Random 129 mg/dL (60-115); Magnesium 1.9 mg/dL (1.6-2.6); Potassium 3.8 mmol/L (3.3-5.1); Sodium 141 mmol/L (135-145); Total Protein 7.9 g/dL (6.5-8.0)
[2023-11-12 12:24] LABS: Troponin-I High Sensitivity < 2.7 ng/L (<3.5-17.0)
[2023-11-12 12:43] LABS: Influenza A PCR NEGATIVE (Negative); Influenza B PCR NEGATIVE (Negative); Resp Syncy Virus RNA Qual PCR NEGATIVE (Negative); SARS COV2 PCR INHOUSE NEGATIVE (Negative)
[2023-11-12 18:13] VITALS: BP 121/65; PULSE 73; RESP 16; TEMP 37; O2SAT 97
--- NOTE | 2024-07-17 22:31 | ED.CHESTPAIN ---
HPI - Chest Pain General Chief Complaint: Chest Pain Stated Complaint: chest pain Time Seen by Provider: 11/12/23 17:56 Source: patient Mode of arrival: ambulatory Limitations: no limitations Related Data Previous Rx's ?Medication ?Instructions ?Recorded aspirin 81 mg tablet,delayed 81 mg PO DAILY 90 days #90 tabs 04/18/24 release (Adult Low Dose Aspirin) empagliflozin 25 mg tablet 25 mg PO DAILY #90 tabs 04/18/24 (Jardiance) lisinopril 30 mg tablet 30 mg PO DAILY #90 tabs 04/18/24 metoprolol succinate 50 mg 50 mg PO DAILY #90 tabs 04/18/24 tablet,extended release 24 hr simvastatin 40 mg tablet 40 mg PO BEDTIME #90 tabs 04/18/24 omeprazole 20 mg capsule,delayed 20 mg PO DAILY #90 caps 04/27/24 release levothyroxine 50 mcg tablet 50 mcg PO DAILY #90 tabs 07/16/24 metformin 1,000 mg tablet 1,000 mg PO BID 90 days #180 tabs 07/16/24 Allergies Allergy/AdvReac Type Severity Reaction Status Date / Time No Known Allergies Allergy Verified 07/15/24 14:37 [facility] Past Medical History Medical History Hyperlipidemia Hypertension PVC (premature ventricular contraction) Surgical History Hx of bilateral breast reduction surgery History of appendectomy H/O tubal ligation H/O hernia repair Family History Family History Father No problems noted. 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 Cognitive needs: No Hearing needs: No Vision needs: No Physical Exam Vital Signs: Vital Signs: Last Vital Signs Temp 98.6 F 11/12/23 18:13 Pulse 73 11/12/23 18:13 Resp 16 11/12/23 18:13 BP 121/65 11/12/23 18:13 Pulse Ox 97 11/12/23 18:13 O2 Del Method Room Air 11/12/23 18:13 BMI result Body Mass Index 26.6 Appearance: Alert. Oriented X3. No acute distress. Eyes: PERRLA, No Nystagmus ENT: Pharynx normal. Oral Mucosa moist Neck: Normal inspection. Neck supple. CVS: Normal heart rate and rhythm. Pulses normal. Respiratory: No respiratory distress. Equal air entry bilateral, no wheezing/rales/rhonchi Abdomen: Soft and nontender. Bowel sounds are present, no mass palpable, no CVA tenderness Skin: Skin warm and dry. Normal skin color. Normal skin turgor. Extremities: No lower extremity edema. No calf tenderness Neuro: Oriented X 3. No motor deficit. No sensory deficit.No cerebellar signs , cranial nerves II-XII intact Medical Decision Making Lab Data 11/12/23 11:54 11/12/23 11:54 Labs: Lab Results 11/12/23 Range/Units 11:54 WBC 8.9 (4.8-10.8) X10*3/uL RBC 5.04 (4.20-5.50) X10*6/uL Hgb 13.8 (12.0-16.0) g/dl Hct 44.8 (37.0-47.0) % MCV 88.9 (80.0-98.0) fL MCH 27.4 (27.0-33.0) pg MCHC 30.8 L (31.0-35.0) g/dl RDW 13.8 (11.0-16.0) % Plt Count 265 (160-400) X10*3/uL MPV 10.9 (9.4-12.3) fL Immature Gran % (Auto) 0.2 (0.0-0.4) % Neut % (Auto) 64.7 (45-73) % Lymph % (Auto) 24.7 (20-40) % [place] % (Auto) 7.5 (2-11) % Eos % (Auto) 2.0 (0-4) % Baso % (Auto) 0.9 (0-2) % Lymph # (Auto) 2.2 (1.2-4.9) X10*3/uL [place] # (Auto) 0.7 (0.1-1.2) X10*3/uL Eos # (Auto) 0.2 (0.0-0.4) X10*3/uL Baso # (Auto) 0.1 (0.0-0.2) X10*3/uL Abs Immat Gran (auto) 0.02 (0.00-0.03) X10*3/uL Absolute Neuts (auto) 5.8 (2.0-8.3) x10*3/uL Absolute Nucleated RBC 0.000 (0.0-0.012) X10*3/uL Nucleated RBC % (auto) 0.0 (0.0-0.2) /100WBC Sodium 141 (135-145) mmol/L Potassium 3.8 (3.3-5.1) mmol/L Chloride 108 (96-108) mmol/L Carbon Dioxide 23 (22-29) mmol/L Anion Gap 14 (12-20) BUN 11 (9-16) mg/dL Creatinine 0.71 (0.5-1.4) mg/dL Estim Creat Clear Calc 83.0 Estimated GFR > 60 Random Glucose 129 H (60-115) mg/dL Calcium 10.0 (8.4-10.2) mg/dL Magnesium 1.9 (1.6-2.6) mg/dL Total Bilirubin 0.5 (0.0-1.0) mg/dL Direct Bilirubin 0.2 (0.0-0.5) mg/dL AST 25 (5-31) U/L ALT 23 (0-31) U/L Alkaline Phosphatase 77 (39-117) U/L Troponin I High Sens < 2.7 (<3.5-17.0) ng/L Total Protein 7.9 (6.5-8.0) g/dL Albumin 4.2 (3.5-5.0) g/dL Influenza Type A (PCR) NEGATIVE (Negative) Influenza Type B (PCR) NEGATIVE (Negative) RSV RNA Qual (PCR) NEGATIVE (Negative) SARS-CoV-2 RNA (RT-PCR) NEGATIVE (Negative) Discharge Plan Discharge Clinical Impression: PVC (premature ventricular contraction), Chest pain Patient Disposition: Home, Self-Care Instructions: Chest Pain (ED), Premature Ventricular Contractions (ED) Additional Instructions: Avoid caffeine drinks Follow-up with control and recovery combat rescue for further evaluation including event monitoring/Holter monitor Report to the ER if prolong palpitation episode/syncope episode Prescriptions: No Action aspirin [Adult Low Dose Aspirin] 81 mg tablet,delayed release (DR/EC) 81 mg PO DAILY 90 Days Qty: 90 1RF Jardiance 25 mg tablet 25 mg PO DAILY Qty: 90 0RF lisinopril 30 mg tablet 30 mg PO DAILY Qty: 90 0RF metoprolol succinate 50 mg tablet extended release 24 hr 50 mg PO DAILY Qty: 90 0RF simvastatin 40 mg tablet 40 mg PO BEDTIME Qty: 90 0RF omeprazole 20 mg capsule,delayed release(DR/EC) 20 mg PO DAILY Qty: 90 0RF levothyroxine 50 mcg tablet 50 mcg PO DAILY Qty: 90 1RF metformin 1,000 mg tablet 1,000 mg PO BID 90 Days Qty: 180 1RF Interventions: ED Discharge Assessment Last Done: 11/12/23 19:03 Discharge Date/Time: 11/12/23 19:04 Print Language: Vietnamese
== END 2023-11-12 19:04 | disposition home or self-care (01) ==
PROVIDERS: Physician Assistant Medical; Emergency Provider Internal Medicine; PCP Internal Medicine
DX: R07.89 Other chest pain (principal); I49.3 Ventricular premature depolarization; Z20.822 Contact with and (suspected) exposure to COVID-19; Z20.828 Contact with and (suspected) exposure to other viral communicable diseases; Z79.899 Other long term (current) drug therapy
CPT/HCPCS: 0241U; 71046; 80048; 80076; 83735; 84484; 85025; 93005; 99283; 99284

== ENCOUNTER → 2023-11-12 11:16 | Outpatient (BNV) | payer OTHER, SELFPAY | PROVIDERS: PCP Internal Medicine; Visit Provider Internal Medicine Cardiovascular Disease | DX: R07.9 Chest pain, unspecified (principal) | CPT/HCPCS: 93010 ==

== ENCOUNTER 2023-11-27 10:41 | Outpatient (REF) | payer OTHER, SELFPAY ==
[2023-11-27 12:44] LABS: Cholesterol 145 mg/dL (<200); HDL Cholesterol 42 mg/dL (>40); LDL Cholesterol Calculated 79 mg/dL (<100); Triglycerides 124 mg/dL (<150)
[2023-11-27 13:02] LABS: TSH reflex Free T4 0.82 uIU/mL (0.32-4.0)
== END 2023-11-27 10:42 | disposition home or self-care (01) ==
LOC: HO.LAB 10:41
PROVIDERS: PCP Internal Medicine; Visit Provider Internal Medicine
DX: E78.00 Pure hypercholesterolemia, unspecified (principal); E03.9 Hypothyroidism, unspecified
CPT/HCPCS: 36415; 80061; 84443

== ENCOUNTER 2023-11-30 13:44 | Outpatient (AMB) | payer OTHER, SELFPAY ==
[2023-11-30 13:46] VITALS: BP 130/64; PULSE 68; BMI 28.2
--- NOTE | 2023-11-30 13:46 | MHC.OFFVIS ---
Intake Vital Signs 11/30/23 13:46 Height 5 ft 5 in Weight 169 lb 12.095 oz BMI 28.2 BP 130/64 Blood Pressure Location Lt brachial Position Sitting Pulse 68 Pulse Source Pulse Oximeter Intake Visit Reasons: [facility] ED f/u KM Intake Note: [facility] ED palpitations f/up pt states that it not all the time that she feels the palpitations. Nutritional Services Director Required: No Accompanied by: Self / Same As Patient Allergies No Known Allergies Allergy (Verified 07/30/23 09:04) Medication List - Last Reconciled 11/30/23 by Qi Harris, JUANA-C aspirin (Adult Low Dose Aspirin) 81 mg PO DAILY levothyroxine 50 mcg PO DAILY lisinopril 30 mg PO DAILY metformin 1,000 mg PO BID metoprolol succinate ER 50 mg PO DAILY omeprazole 20 mg PO DAILY simvastatin 40 mg PO BEDTIME HPI [facility] ED f/u KM HPI Details Darleen is a 63-year-old female with past medical history of hypertension, hyperlipidemia, diabetes, PVCs who was recently seen in the emergency room for report of chest discomfort. She ruled out for ACS and now presents for follow-up. Today she reports that she has been getting some sharp pains to her left chest region. She says she can feel the random sharp pain that occurs suddenly then leaves a residual burning sensation to her left chest. This happens mostly with activity such as moving her torso. Not clearly part on by walking or stair climbing. She describes herself as very active. She will feel heart palpitations like her heart skipping beats. She has a known history of PVCs and takes her metoprolol. She denies any shortness of breath, presyncope, syncope, PND, orthopnea or edema. She helps to provide care for her disabled daughter who has left-sided weakness from remote accident, [facility] Medical History Hyperlipidemia Hypertension PVC (premature ventricular contraction) Surgical History History of appendectomy H/O tubal ligation H/O hernia repair Family History Father No problems noted. Mother Diabetes CVD (cardiovascular disease) Social History Alcohol intake: never Patient Tobacco Use Status: Never used Tobacco Review of Systems Const All systems reviewed & are unremarkable except as noted in HPI and below Denies chills, Denies fatigue, Denies fever(s), Denies frequent falls, Denies weakness, Denies weight gain and Denies weight loss Card Details: intermittent heart palpitations Reports chest pain, Denies leg edema, Reports lightheadedness, Denies palpitations, Denies dyspnea and Denies dyspnea on exertion Resp Denies cough, Denies dyspnea and Denies dyspnea on exertion GI Denies hematochezia Musc Denies abnormal gait, Denies muscle weakness, Denies numbness, Denies radiating pain into limb and Denies tingling Neuro Denies abnormal gait, Denies frequent falls, Denies numbness, Denies tingling and Denies weakness Endo Denies fatigue and Denies palpitations Physical Exam Vital Signs: Last Vital Signs Pulse 68 11/30/23 13:46 BP 130/64 11/30/23 13:46 BMI result Body Mass Index 28.2 Const General: cooperative, healthy appearing, comfortable and no acute distress Orientation/consciousness: patient oriented x3 Neck Neck: Yes normal visual inspection Resp Effort & Inspection: normal respiratory effort Auscultation: clear to auscultation bilaterally, no crackles, no rales, no rhonchi and no wheezes Cardio Jugular venous distension: no JVD Rate: regular rate Rhythm: regular rhythm Heart sounds: S1 normal heart sound present, S2 normal heart sound present, no murmurs and no rubs Neuro General: patient oriented x3 Extrem General: Yes normal to inspection Psych Appearance: grossly normal Mental Status: mental status grossly normal Speech and movement: Normal speech and movement present Assessment & Plan Assessment & Plan (1) Chest pain: Code(s): R07.9 - Chest pain, unspecified Plan: Recent ER evaluation for chest discomfort. Sharp pain that leaves a residual burning type sensation in the left chest region. Occurring randomly and with movement of her torso at times. Not clearly brought on by walking or stair climbing. ER evaluation without acute findings, ruled out for ACS. EKG showed normal sinus rhythm with sinus arrhythmia, nonspecific ST abnormality, rate 76. Troponin levels normal. Today she reports that she has had this type of pain on and off. At the time of her ER visit she describes it as being more intense than previous. Overall discomfort for angina though she does have multiple cardiac risk factors including hypertension, hyperlipidemia and diabetes. She states she is able to walk on a treadmill. Will order a exercise stress test to evaluate for any ischemia. If abnormal then nuclear testing will be ordered. Will check echocardiogram to assess for any structural heart disease. Signs and symptoms of angina reviewed with her. Continue with risk factor modification. Continue aspirin, simvastatin and metoprolol. Emergency care as needed for symptoms. Cardiology follow-up when test results available. (2) Palpitations: Code(s): R00.2 - Palpitations Plan: Reports of heart palpitations like heart is skipping. She does have a known history of PVCs. Unclear frequency of PVCs at this time as no recent Holter monitor. She is on metoprolol XL 50 mg daily. Will order Holter monitor as part of her evaluation. (3) PVC (premature ventricular contraction): Code(s): I49.3 - Ventricular premature depolarization Plan: As above (4) Hypertension: Code(s): I10 - Essential (primary) hypertension Plan: Good at present time. No med changes made. Plan Time spent on chart review, documentation, interview and assessment Orders: Orders ECG 3 day holter monitor Today I49.3 - Ventricular premature depolarization, R00.2 - Palpitations CA stress test Today I49.3 - Ventricular premature depolarization, R00.2 - Palpitations, R07.9 - Chest pain, unspecified CA echo transthorac w con Today R00.2 - Palpitations, R07.9 - Chest pain, unspecified Coding Level of Care Code Est Pt Level 4 (64671) Diagnoses Chest pain R07.9 Palpitations R00.2 PVC (premature ventricular contraction) I49.3 Hypertension I10 Time Spent (min) 28
== END 2023-11-30 14:31 | disposition home or self-care (01) ==
PROVIDERS: PCP Internal Medicine; Visit Provider Nurse Practitioner Family
DX: R07.9 Chest pain, unspecified (principal); R00.2 Palpitations; I49.3 Ventricular premature depolarization; I10 Essential (primary) hypertension
CPT/HCPCS: 99214

== ENCOUNTER → 2023-11-30 13:44 | Outpatient (BNVA) | payer OTHER, SELFPAY | PROVIDERS: PCP Internal Medicine; Visit Provider Nurse Practitioner Family ==

== ENCOUNTER → 2023-12-21 07:40 | Outpatient (REF) | payer OTHER, SELFPAY ==
--- NOTE | 2023-12-21 07:44 | CA_ITS ---
Transthoracic Echocardiogram Patient (Last, First, Middle): Darleen Thompson, Gender: Female Date of : 1960 Age: 63 Procedure Date: 12/21/2023 Procedure Type: Transthoracic Echocardiogram Location: OP Height: 165.1 cm Weight: 76.66 kg BSA: 1.84 m2 Heart Rate: 72 bpm BP: 132 / 64 mmHg Manager Lab: SB Referring MD: Qi Harris [place] [employer]-C Symptoms: R07.9 - Chest pain, unspecified Study Quality: Adequate w contrast ECG Rhythm: Sinus Conclusions: - Normal left ventricular size and systolic function. - There is moderate septal asymmetric hypertrophy. - There is low normal right ventricular systolic function. Findings Procedure Information Contrast agent, definity, is being given per protocol without apparent complications. Left Ventricle Normal left ventricular size and systolic function. The visually estimated ejection fraction is between 65-70%. There is no evidence of regional wall motion abnormalities. Diastolic function is normal for age. There is moderate septal asymmetric hypertrophy. Right Ventricle Normal right ventricular cavity size. There is low normal right ventricular systolic function. Atria The left atrium is normal in size. Aortic Valve Normal aortic valve structure and function. There is no aortic valve stenosis. There is no aortic valve regurgitation. Mitral Valve Normal mitral valve structure and function. There is no mitral valve regurgitation. There is no mitral valve stenosis. Pulmonic Valve The pulmonic valve is normal. There is trace pulmonic valve regurgitation. Tricuspid Valve Normal tricuspid valve structure. There is no tricuspid valve regurgitation. Tricuspid regurgitation envelope is inadequate for calculation of right ventricular systolic pressure. Normal right atrial pressure. Great Vessels All visible segments of the aorta are normal in size. Venous The inferior vena cava is normal in size and collapses greater than 50% with inspiration. Pericardium/Pleural There is no evidence of pericardial effusion. Prior Study Comparison Changes noted compared to prior study dated: 05/15/2019. Moderate septal hypertrophy. RV function is low normal. Measurements 2D Linear Measurements IVSd: 1.26 0.6-0.9/0.6-1.0 cm LVIDd: 3.72 3.9-5.3/4.2-5.9 cm LVIDd Index: 2.02 2.4-3.2/2.2-3.1 cm/m2 LVIDs: 2.54 2.0-3.6 cm LVPWd: 0.58 0.7-1.1 cm LA Diam: 3.50 2.7-3.8/3.0-4.0 cm LAIDs Index: 1.90 1.5-2.3 cm/m2 LV Mass: 125.51 67-162/88-224 g LV Mass Index: 68.21 43-95/49-115 g/m2 LVOT Diam: 2.20 3.0+(-)1.3 cm 2D Systolic Function EF 4C: 62.80 >55% EF 2C: 71.30 >55% EF BiP: 67.20 >55% Mitral Valve MV Pk E: 0.54 MV PK A: 0.79 MV Decel Time: 220.00 E/A: 0.70 E'Lateral: 7.87 E'Medial: 5.11 E/E' Med: 10.60 E/E' Lat: 6.90 PHT: 64.00 MVA PHT: 3.44 Decel [place]: 2.47 Aortic Valve AoV Pk Onur: 1.39 AoV Pk Grad: 8.00 KADI: 2.86 LVOT LVOT Pk Onur: 0.98 LVOT Mn Onur: 0.72 LVOT VTI: 0.22 LVOT Pk Grad: 4.00 LVOT Mn Grad: 2.00 LVOT Diam: 2.20 LVOT Area: 3.80 Diastolic Function MV Pk E: 0.54 MV Pk A: 0.79 E/A: 0.70 E'Medial: 5.11 E/E' Med: 10.60 E' Laterial: 7.87 E/E' Lat: 6.90 Right Ventricle TAPSE (mm): 17.80 TVS' Onur: 8.19 Tricuspid Valve RA Press: 3.00 Great Vessels Aorta Sinus of Valsalva: 3.20 2.0-3.5 cm Ao Asc: 2.90 2.1-3.4 cm Ao Arch: 2.70 Pulmonary Valve PV Pk Onur: 1.24 Peak PV Grad: 6.00 Updated in Other Vendor System with Status of Final Jluis Mena MD electronically signed on 12/23/2023 3:07:26 PM with status of Final
--- NOTE | 2023-12-21 07:44 | HM_ITS ---
* Total monitoring time 2 days. * Underlying rhythm is sinus with an average rate of 77/Min. Range 56 to 112/Min. * Rare supraventricular and ventricular ectopy. * No sustained arrhythmias. * No significant pauses or AV blocks. * No patient markers or diary events. MTDD
--- NOTE | 2023-12-21 07:44 | CA_ITS ---
Acquisition Time: 2023-12-21 08:43:54 Total Exercise Time: 00:06:48 Test Indications: Palpitations PVC'S Medications: ASA LEVITHYROXINE LISINOPRIL METFORMIN METOPROLOL OMEPRAZOLE SIMVASTATIN Protocol: KALPESH Max HR: 151 BPM 94% of Pred: 159 BPM Max BP: 168/070 mmHG Max Work Load: 8.2 METS Exercise stress test exercise 6 min 48 sec of Kalpesh achieving 94% MPHR, with mild SOB, no chest discomfort, with isolated PVCs, with normnotensive reponse to exercise, with downsloping in aVF, V4-V6. Test reviewed with Dr. Mena Referred By: Qi Harris Overread By: Joselyn Turner
== END ==
LOC: HO.CARD 07:40
PROVIDERS: PCP Internal Medicine; Visit Provider Nurse Practitioner Family
DX: R07.9 Chest pain, unspecified (principal); I49.3 Ventricular premature depolarization; R00.2 Palpitations
CPT/HCPCS: 93017; 93242; 93306; Q9957

== ENCOUNTER → 2023-12-21 07:44 | Outpatient (BNV) | payer OTHER, SELFPAY | PROVIDERS: PCP Internal Medicine; Visit Provider Nurse Practitioner | DX: R07.9 Chest pain, unspecified (principal) | CPT/HCPCS: 93016; 93018; 93244; 93306 ==

== ENCOUNTER 2024-01-06 11:48 | Emergency (ER) | payer OTHER, SELFPAY ==
--- NOTE | 2024-01-06 | ECG_ITS ---
Test Reason : CP Blood Pressure : / mmHG Vent. Rate : 069 BPM Atrial Rate : 069 BPM P-R Int : 142 ms QRS Dur : 090 ms QT Int : 394 ms P-R-T Axes : 049 -02 033 degrees QTc Int : 422 ms Normal sinus rhythm Minimal voltage criteria for LVH, may be normal variant ( R in aVL ) Borderline ECG When compared with ECG of 12-NOV-2023 11:19, No significant change was found Referred By: Generic ED Physician Electronically Signed By:Jluis Mena
--- NOTE | ~2024-01-06 | US_ITS ---
EXAMINATION: US VENOUS ULTRASOUND WITH DOPPLER LOWER EXTREMITY, LEFT CLINICAL INFORMATION: Leg pain COMPARISON: None available. TECHNIQUE: Ultrasound of the deep veins is performed from the hip to the calf with compression sonography and color and pulse Doppler assessment. Spectral analysis with color-flow imaging is performed. FINDINGS: There is normal venous compression and respiratory variation and augmented flow. The visualized common femoral vein, superficial femoral vein, profunda femoral vein, popliteal vein, and the trifurcation region shows no evidence of deep venous thrombosis. There is no significant popliteal fossa cyst. If the patient's symptoms persist, followup ultrasound in 5 days 7 days might be of value to exclude proximal propagation from a non-visualized calf vein. US/US venous duplex LE LT IMPRESSION: No DVT demonstrated in the left lower extremity.
--- NOTE | ~2024-01-06 | XR_ITS ---
EXAMINATION: XR CHEST CLINICAL INFORMATION: Left anterior chest pain. COMPARISON: None available. Chest x-ray 11/12/2023 TECHNIQUE: Frontal view of the chest was obtained. FINDINGS: No significant abnormality is noted involving the heart, lungs, mediastinum, bony thorax or soft tissues. XR/XR chest 1V IMPRESSION: Unremarkable chest examination.
[2024-01-06 12:04] VITALS: BP 141/80; PULSE 78; RESP 18; TEMP 36.6; O2SAT 99; BMI 25.6
--- NOTE | 2024-01-06 12:08 | ED_ITS ---
HPI - Chest Pain General Chief Complaint: Chest Pain Stated Complaint: chest pain, leg pain Time Seen by Provider: 01/06/24 14:07 Source: patient Mode of arrival: ambulatory Limitations: no limitations History of Present Illness HPI narrative: 63-year-old female with history of diabetes mellitus, hypertension, hyperlipidemia, hypothyroidism, GERD who presents emergency department for evaluation of chest pain. Patient states that she was in [place] and woke up at 07:00 hours with left-sided chest pain. She states that since then she has had intermittent chest pain which is worse with breathing. She states the pain is a sharp pain and she points to her left breast when asked to localize the pain. She denied any pain or swelling in her lower extremities. She denied fever, chills, rhinorrhea, sore throat, cough. She denied shortness of breath or dyspnea on exertion. She denied nausea, vomiting, diarrhea. Patient states she is being worked up for palpitations and chest pain. She states that her stress test that she had prior to going to [place] use abnormal and she is scheduled for 2nd stress dose. Related Data Home Medications Medication Instructions Recorded Confirmed aspirin 81 mg tablet,delayed 81 mg PO DAILY 10/06/20 11/30/23 release (Adult Low Dose Aspirin) levothyroxine 50 mcg tablet 50 mcg PO DAILY 10/06/20 11/30/23 lisinopril 30 mg tablet 30 mg PO DAILY 10/06/20 11/30/23 metformin 1,000 mg tablet 1,000 mg PO BID 10/06/20 11/30/23 metoprolol succinate 50 mg 50 mg PO DAILY 10/06/20 11/30/23 tablet,extended release 24 hr omeprazole 20 mg capsule,delayed 20 mg PO DAILY 10/06/20 11/30/23 release simvastatin 40 mg tablet 40 mg PO BEDTIME 10/06/20 11/30/23 Allergies Allergy/AdvReac Type Severity Reaction Status Date / Time No Known Allergies Allergy Verified 01/06/24 12:04 Review of Systems 2 Review of Systems: Yes all other systems are reviewed and are negative [facility] Past Medical History [facility] Narrative: Social history: She denies tobacco, alcohol and drug use Medical History Hyperlipidemia Hypertension PVC (premature ventricular contraction) Surgical History History of appendectomy H/O tubal ligation H/O hernia repair Family History Family History Father No problems noted. Mother Diabetes CVD (cardiovascular disease) Social History Social History Alcohol intake: never Patient Tobacco Use Status: Never used Tobacco Smoked in Last 30 Days: No Use of substances other than those prescribed or required for medical reasons: No Advance Directives: No Advance Directives Information Provided: No Physical Exam 2 Vital Signs: Vital Signs: Last Vital Signs Temp 97.7 F 01/06/24 13:48 Pulse 68 01/06/24 13:48 Resp 16 01/06/24 13:48 BP 156/66 H 01/06/24 13:48 Pulse Ox 98 01/06/24 13:48 O2 Del Method Room Air 01/06/24 13:48 BMI result Body Mass Index 25.6 Vital signs did reveal an elevated blood pressure of 156/66 otherwise unremarkable Exam General: Awake, alert in no distress Head: Normocephalic, atraumatic EENT: PERRL, Lids normal, sclera normal, conjunctiva normal, nose normal , ears normal, throat without erythema or exudates Neck: Supple, no adenopathy Lung: breath sounds symmetric, no wheezing, rales or rhonchi Chest: symmetric movement, moderate to severe tenderness palpation of the sternum and left chest which reproduces her pain Heart: regular rate and rhythm, normal S1, S2 no murmurs or rubs Abdomen: soft, non-tender, nondistended, normal bowel sounds Back: no vertebral tenderness, no CVAT Extremities: no deformities, moves all extremities symmetrically Neuro: Awake, alert, oriented, normal speech, cranial nerves intact, moves all extremities symmetrically Psych: Pleasant, cooperative Course Course Course Narrative: RME: 63-year-old female presents to ED for left leg and left-sided chest pain that began today. Patient traveled from [place] this morning off the plane. Patient states denies any pleurisy. labs, EKG, and ultrasound 63-year-old female history diabetes mellitus, hypertension, hyperlipidemia, hypothyroidism, GERD who presents emergency department for evaluation of intermittent chest pain that began at 07:00 hours. Pain is located in her left chest area. Pain is worse with respirations. Vital signs did reveal an elevated blood pressure otherwise unremarkable pain. Exam did reveal significant sternal and left-sided chest wall tenderness which reproduces her pain. Differential diagnoses: Includes was not limited to myocardial infarction, myocardial ischemia, pneumonia, DVT, costochondritis, chest wall injury, anemia, electrolyte abnormalities The following evaluation was ordered: CBC, BNP, troponin, PT/INR, PTT, chest x- ray one view, BNP, EKG, left lower extremity duplex ultrasound My independent interpretation patient's laboratory evaluation is as follows: CBC was normal. BMP was normal. Coags normal. Troponin was below detectable limits. BNP was normal at 14. Medical Decision Making Medical Decision Making MDM Narrative: 63-year-old female history diabetes mellitus, hypertension, hyperlipidemia, hypothyroidism, GERD who presents emergency department for evaluation of intermittent chest pain that began at 07:00 hours. Pain is located in her left chest area. Pain is worse with respirations. Vital signs did reveal an elevated blood pressure otherwise unremarkable pain. Exam did reveal significant sternal and left-sided chest wall tenderness which reproduces her pain. Differential diagnoses: Includes was not limited to myocardial infarction, myocardial ischemia, pneumonia, DVT, costochondritis, chest wall injury, anemia, electrolyte abnormalities The following evaluation was ordered: CBC, BNP, troponin, PT/INR, PTT, chest x- ray one view, BNP, EKG, left lower extremity duplex ultrasound My independent interpretation patient's laboratory/studies evaluation is as follows: CBC was normal. BMP was normal. Coags normal. Troponin was below detectable limits. BNP was normal at 14. Chest x-ray and EKG were unremarkable. Duplex ultrasound of the left lower extremity revealed no DVT Patient's physical exam and findings are consistent with costochondritis. I did discuss this with the patient, she was advised to take Tylenol and ibuprofen for pain she was given printed and verbal instructions and discharged home. Admission/Observation Consideration of admission/observation: Escalation of care including admission/observation considered Lab Data [facility] Lab Attestation statement: I reviewed the patient's lab results. 01/06/24 12:19 01/06/24 12:19 Labs: Lab Results 01/06/24 01/06/24 Range/Units 12:18 12:19 WBC 9.5 (4.8-10.8) X10*3/uL RBC 4.83 (4.20-5.50) X10*6/uL Hgb 13.8 (12.0-16.0) g/dl Hct 42.7 (37.0-47.0) % MCV 88.4 (80.0-98.0) fL MCH 28.6 (27.0-33.0) pg MCHC 32.3 (31.0-35.0) g/dl RDW 14.7 (11.0-16.0) % Plt Count 285 (160-400) X10*3/uL MPV 10.9 (9.4-12.3) fL Immature Gran % (Auto) 0.1 (0.0-0.4) % Neut % (Auto) 56.3 (45-73) % Lymph % (Auto) 35.5 (20-40) % Calloway % (Auto) 6.4 (2-11) % Eos % (Auto) 1.1 (0-4) % Baso % (Auto) 0.6 (0-2) % Lymph # (Auto) 3.4 (1.2-4.9) X10*3/uL Calloway # (Auto) 0.6 (0.1-1.2) X10*3/uL Eos # (Auto) 0.1 (0.0-0.4) X10*3/uL Baso # (Auto) 0.1 (0.0-0.2) X10*3/uL Abs Immat Gran (auto) 0.01 (0.00-0.03) X10*3/uL Absolute Neuts (auto) 5.3 (2.0-8.3) x10*3/uL Absolute Nucleated RBC 0.000 (0.0-0.012) X10*3/uL Nucleated RBC % (auto) 0.0 (0.0-0.2) /100WBC PT 11.9 (11.1-13.3) SEC INR 1.0 (0.9-1.1) APTT 34.4 (26.0-36.8) SEC Sodium 144 (135-145) mmol/L Potassium 4.4 (3.3-5.1) mmol/L Chloride 108 (96-108) mmol/L Carbon Dioxide 25 (22-29) mmol/L Anion Gap 15 (12-20) BUN 12 (9-16) mg/dL Creatinine 0.74 (0.5-1.4) mg/dL Estim Creat Clear Calc 81.1 Estimated GFR > 60 Random Glucose 100 (60-115) mg/dL Calcium 10.3 H (8.4-10.2) mg/dL Total Bilirubin 0.4 (0.0-1.0) mg/dL AST 22 (5-31) U/L ALT 21 (0-31) U/L Alkaline Phosphatase 61 (39-117) U/L Troponin I High Sens < 2.7 (<3.5-17.0) ng/L B-Natriuretic Peptide 14 (<100) pg/mL Total Protein 7.9 (6.5-8.0) g/dL Albumin 4.4 (3.5-5.0) g/dL Independent Interpretation I performed an independent interpretation of an: Plain X-Ray Interpretation: My independent interpretation patient's chest x-ray is as follows: No acute disease My independent interpretation patient's 12 EKG done at 11:56 hours is as follows: Normal sinus rhythm rate of 69, normal [place] interval, QRS duration QTC interval, no ST segment elevation, no ST segment depression, inverted T-wave in lead 3. Q-wave in lead 3. No change compared to EKG dated 11/12/2023. Radiology Impression Discussion of test interpretation with radiology: I have reviewed the radiologist's reading. Radiologist Impression: XR chest 1V IMPRESSION: Unremarkable chest examination. Dictated By: Juanjo Cordova MD US venous duplex LE LT IMPRESSION: No DVT demonstrated in the left lower extremity. Dictated By: Juanjo Cordova MD Chronic Conditions Patient?s care impacted by: Diabetes, Hypertension and Other (Hyperlipidemia) Discharge Plan Discharge Clinical Impression: Acute costochondritis Patient Disposition: Home, Self-Care Additional Instructions: Your laboratory evaluation was normal Your EKG was unremarkable. Your chest x-ray was normal. The ultrasound of your legs revealed no blood clots On your exam you are very tender when I push on your chest, this is consistent with inflammation of the joints and muscles of your chest (he is costochondritis). Take ibuprofen 200 mg pills, 2 pills every 6 hours as needed for pain or fever. Take Tylenol (acetaminophen) 500 mg pills, 2 pills every 6 hours as needed for pain or fever. Follow-up with your doctor in 2 days. Please return to the emergency department if your symptoms get worse or if you develop any symptoms that are concerning to you. Prescriptions: No Action omeprazole 20 mg capsule,delayed release(DR/EC) 20 mg PO DAILY levothyroxine 50 mcg tablet 50 mcg PO DAILY simvastatin 40 mg tablet 40 mg PO BEDTIME metformin 1,000 mg tablet 1,000 mg PO BID lisinopril 30 mg tablet 30 mg PO DAILY metoprolol succinate 50 mg tablet extended release 24 hr 50 mg PO DAILY aspirin [Adult Low Dose Aspirin] 81 mg tablet,delayed release (DR/EC) 81 mg PO DAILY Interventions: ED Discharge Assessment Last Done: 01/06/24 14:41 Discharge Date/Time: 01/06/24 14:46
[2024-01-06 12:25] LABS: MANUAL DIFF FLAG NO
[2024-01-06 12:26] LABS: Basophils Absolute Auto 0.1 X10*3/uL (0.0-0.2); Basophils Percent Auto 0.6 % (0-2); Eosinophils Absolute Auto 0.1 X10*3/uL (0.0-0.4); Eosinophils Percent Auto 1.1 % (0-4); Hematocrit 42.7 % (37.0-47.0); Hemoglobin 13.8 g/dl (12.0-16.0); Imm Gran Abs Auto 0.01 X10*3/uL (0.00-0.03); Imm Gran Pct Auto 0.1 % (0.0-0.4); Lymphocytes Absolute Auto 3.4 X10*3/uL (1.2-4.9); Lymphocytes Percent Auto 35.5 % (20-40); Mean Corpuscular HGB Conc 32.3 g/dl (31.0-35.0); Mean Corpuscular Hemoglobin 28.6 pg (27.0-33.0); Mean Corpuscular Volume 88.4 fL (80.0-98.0); Mean Platelet Volume 10.9 fL (9.4-12.3); Monocytes Absolute Auto 0.6 X10*3/uL (0.1-1.2); Monocytes Percent Auto 6.4 % (2-11); Neutrophils Absolute Auto 5.3 x10*3/uL (2.0-8.3); Neutrophils Percent Auto 56.3 % (45-73); Platelet Count 285 X10*3/uL (160-400); Red Blood Count 4.83 X10*6/uL (4.20-5.50); Red Cell Distribution Width 14.7 % (11.0-16.0); White Blood Count 9.5 X10*3/uL (4.8-10.8)
[2024-01-06 12:32] LABS: Prothrombin Time 11.9 SEC (11.1-13.3)
[2024-01-06 12:35] LABS: Partial Thromboplastin Time 34.4 SEC (26.0-36.8)
[2024-01-06 12:40] LABS: Alanine Aminotransferase 21 U/L (0-31); Albumin Level 4.4 g/dL (3.5-5.0); Alkaline Phosphatase 61 U/L (39-117); Anion Gap 15 (12-20); Aspartate Amino Transferase 22 U/L (5-31); Bilirubin Total 0.4 mg/dL (0.0-1.0); Blood Urea Nitrogen 12 mg/dL (9-16); Calcium 10.3 mg/dL (8.4-10.2); Carbon Dioxide 25 mmol/L (22-29); Chloride 108 mmol/L (96-108); Creatinine Clr Calc Pharmacy 81.1; Estimated Glomerular Filt Rate > 60; Glucose Random 100 mg/dL (60-115); Potassium 4.4 mmol/L (3.3-5.1); Sodium 144 mmol/L (135-145); Total Protein 7.9 g/dL (6.5-8.0)
[2024-01-06 12:46] LABS: B Type Natriuretic Peptide 14 pg/mL (<100)
[2024-01-06 12:48] LABS: Troponin-I High Sensitivity < 2.7 ng/L (<3.5-17.0)
[2024-01-06 13:48] VITALS: BP 156/66; PULSE 68; RESP 16; TEMP 36.5; O2SAT 98
--- NOTE | 2024-01-06 14:00 | PC.NURSE ---
pt alert and oriented, breathing even and unlabored. skin warm and dry. pt reports intermittent sharp chest pains from epigastric area radiating upwards for past couple weeks since she got back from her trip to [place]. pt denies any SOB, N/V/D, fevers, cough, recent illnesses or injuries. pt has her professional nursing tutor through [facility], pt reports she needs a repeat echo per professional nursing tutor. no acute resp distress noted, pt denies any pain at this time.
== END 2024-01-06 14:46 | disposition home or self-care (01) ==
PROVIDERS: Physician Assistant; Emergency Provider Emergency Medicine Emergency Medical Services; PCP Internal Medicine
DX: R07.89 Other chest pain (principal); M94.0 Chondrocostal junction syndrome [Tietze]; R06.02 Shortness of breath; R60.0 Localized edema; Z79.899 Other long term (current) drug therapy
CPT/HCPCS: 36415; 71045; 80053; 83880; 84484; 85025; 85610; 85730; 93005; 93971; 99284; 99285

== ENCOUNTER → 2024-01-06 11:56 | Outpatient (BNV) | payer OTHER, SELFPAY | PROVIDERS: Emergency Provider Emergency Medicine Emergency Medical Services; PCP Internal Medicine; Visit Provider Internal Medicine Cardiovascular Disease | DX: R07.9 Chest pain, unspecified (principal) | CPT/HCPCS: 93010 ==

== ENCOUNTER 2024-01-17 13:25 | Outpatient (AMB) | payer OTHER, SELFPAY ==
[2024-01-17 13:43] VITALS: BP 150/74; PULSE 66; BMI 26.3
--- NOTE | 2024-01-17 13:43 | MHC.OFFVIS ---
Intake Vital Signs 01/17/24 13:43 Height 5 ft 6 in Weight 162 lb 11.218 oz BMI 26.3 BP 150/74 H Blood Pressure Location Lt brachial Position Sitting Pulse 66 Pulse Source Pulse Oximeter Intake Visit Reasons: 6-8 week fu after stress, echo, holter [employer] Cooler Required: No Allergies No Known Allergies Allergy (Verified 01/17/24 13:46) Medication List - Last Reconciled 01/17/24 by Qi Harris NP-C aspirin (Adult Low Dose Aspirin) 81 mg PO DAILY levothyroxine 50 mcg PO DAILY lisinopril 30 mg PO DAILY metformin 1,000 mg PO BID metoprolol succinate ER 50 mg PO DAILY omeprazole 20 mg PO DAILY simvastatin 40 mg PO BEDTIME HPI 6-8 week fu after stress, echo, holter HPI Details Darleen is a 63-year-old female past medical history of hypertension, hyperlipidemia, diabetes, PVCs, atypical chest discomfort who was seen in the emergency room last week for chest discomfort. She was thought to have costochondritis. On last visit to cardiology a Holter monitor, stress test and echocardiogram were ordered and she now presents for follow-up. Today she reports that she still has some tenderness to her anterior chest wall to palpation. Overall it is improved since last week. She denies pain with deep inspiration or with laying down. No chest discomfort brought on by exertional activities. No concerning shortness of breath, palpitations, lightheaded, presyncope, syncope, PND, orthopnea or edema. Takes her meds as directed. [facility] Medical History Hyperlipidemia Hypertension PVC (premature ventricular contraction) Surgical History History of appendectomy H/O tubal ligation H/O hernia repair Family History Father No problems noted. Mother Diabetes CVD (cardiovascular disease) Social History Alcohol intake: never Patient Tobacco Use Status: Never used Tobacco Review of Systems Const All systems reviewed & are unremarkable except as noted in HPI and below ENT Denies dizziness Card Denies chest pain, Denies chest pain at rest, Denies chest pain with activity, Denies rapid heart rate, Denies pedal edema, Denies edema, Denies leg edema, Denies lightheadedness, Denies palpitations, Denies dyspnea, Denies dyspnea on exertion and Denies orthopnea Resp Denies cough, Denies dyspnea and Denies dyspnea on exertion GI Denies hematochezia and Denies change in stool character Musc Denies abnormal gait, Denies limited range of motion, Denies muscle cramps, Denies muscle weakness, Denies numbness, Denies radiating pain into limb, Denies stiffness and Denies tingling Neuro Denies abnormal gait, Denies dizziness, Denies numbness and Denies tingling Endo Denies palpitations Physical Exam Vital Signs: Last Vital Signs Pulse 66 01/17/24 13:43 BP 150/74 H 01/17/24 13:43 BMI result Body Mass Index 26.3 Assessment & Plan Assessment & Plan (1) Chest pain: Code(s): R07.9 - Chest pain, unspecified Plan: ER evaluation 11/12/2023 for chest discomfort. Random Sharp pain that leaves a residual burning type sensation in the left chest region. She ruled out for ACS. ER evaluation on 01/06/24 for chest discomfort and again she ruled out for ACS. At that time she was thought to have costochondritis. Today she reports that she continues to have some mild chest wall tenderness to palpation. Overall his symptom has improved since last week. She has no chest discomfort brought on by walking, stair climbing. She does have multiple cardiac risk factors including hypertension, hyperlipidemia and diabetes. An echocardiogram was done on 12/21/2023 showing EF 65-70%, no regional wall motion abnormalities, moderate asymmetric septal hypertrophy. A exercise stress test done 12/21/2023 with exercise close to 7 minutes, no anginal symptoms and borderline EKG abnormalities. A stress echocardiogram has been ordered and is due to be done on 02/07/2024. Plan to call her with results. Signs and symptoms of angina reviewed with her. Continue with risk factor modification. Continue aspirin, simvastatin and metoprolol. Emergency care as needed for symptoms. Cardiology follow-up 6 months, sooner if needed. (2) Palpitations: Code(s): R00.2 - Palpitations Plan: On last visit had Reports of heart palpitations like heart is skipping. She does have a known history of PVCs. Unclear frequency of PVCs at this time as no recent Holter monitor. She is on metoprolol XL 50 mg daily. Holter monitor done 12/21/23 shows sinus rhythm with average heart rate 77, rare SVE and VE. Today she denies any concerning heart palpitations. Continue metoprolol. (3) PVC (premature ventricular contraction): Code(s): I49.3 - Ventricular premature depolarization Plan: As above (4) Hypertension: Code(s): I10 - Essential (primary) hypertension Plan: Mild elevation today. Blood pressure will be reassessed at time of stress test. If blood pressure remains elevated then her lisinopril dose can be increased. Currently on 30 mg daily. She is also on metoprolol XL 50 mg daily. Labs done on 01/06/2024 showed potassium 4.4 and creatinine 0.74. Plan Time spent on chart review, documentation, interview and assessment Coding Level of Care Code Est Pt Level 4 (30896) Diagnoses Chest pain R07.9 Palpitations R00.2 PVC (premature ventricular contraction) I49.3 Hypertension I10 Time Spent (min) 28
== END 2024-01-17 14:15 | disposition home or self-care (01) ==
PROVIDERS: PCP Internal Medicine; Visit Provider Nurse Practitioner Family
DX: R07.9 Chest pain, unspecified (principal); R00.2 Palpitations; I49.3 Ventricular premature depolarization; I10 Essential (primary) hypertension
CPT/HCPCS: 99214

== ENCOUNTER → 2024-01-17 13:25 | Outpatient (BNVA) | payer OTHER, SELFPAY | PROVIDERS: PCP Internal Medicine; Visit Provider Nurse Practitioner Family ==

== ENCOUNTER → 2024-02-07 07:59 | Outpatient (REF) | payer OTHER, SELFPAY ==
--- NOTE | ~2024-02-07 | NM_ITS ---
Exercise Myocardial perfusion study Indication: Chest pain to evaluate for myocardial ischemia Technique: The patient was brought in for an exercise perfusion study on 02/07/2024. Patient performed exercise as per Roni protocol and was injected 25 mCi of sestamibi was given intravenously one target HR was achieved. Images were obtained using the SPECT gamma camera interlaced with the gating device. Images were obtained in supine position. Resting perfusion study was performed on 02/12/2024. Patient was administered 25 mCi of sestamibi intravenously at rest. Images were then obtained in supine position. Images obtained with and without CT attenuation. Total DLP 54 mGy-cm. Images were processed with the software and compared side to side in short axis, horizontal long axis and vertical long axis views. Findings: The stress perfusion study showed non attenuated images show normal uptake of radiotracer in all segments of LV myocardium. Attenuation corrected images show mildly reduced uptake in the apex. The gated study shows normal LV systolic function with calculated LVEF of 71%. LV cavity is normal in size. The gated study shows normal systolic wall thickening and contraction of all segments. There is no transient ischemic dilation. Resting study shows no change in perfusion pattern compared to stress perfusion study. Gating at rest reveals normal systolic wall motion with ejection fraction at 56%. The findings are consistent with likely normal myocardial perfusion. NM/NM cardiolite stress test Impression: 1. Normal myocardial perfusion 2. Gated LVEF is 70% 3. Transient ischemic dilatation not present Stress EKG is dictated separately
--- NOTE | 2024-02-07 08:02 | CA_ITS ---
Acquisition Time: 2024-02-07 08:28:38 Total Exercise Time: 00:05:02 Test Indications: R07.89 - Other chest pain Medications: Protocol: KALPESH Max HR: 142 BPM 89% of Pred: 159 BPM Max BP: 162/074 mmHG Max Work Load: 7.0 METS Exercise stress test exercise 5 min 2 sec of Kalpesh protocol achieving 89% MPHR, without anginal symptoms, with isolated PVC, with resting HTN, normotensive response to exercise, with downsloping in aVF, V3-V6. Nuclear images pending. Test reviewed with Dr. Ray Referred By: Qi Harris Overread By: Joselyn Turner
== END ==
LOC: HO.CARD 07:59
PROVIDERS: PCP Internal Medicine; Visit Provider Nurse Practitioner Family
DX: R07.89 Other chest pain (principal); R94.39 Abnormal result of other cardiovascular function study
CPT/HCPCS: 78452; 93017; A9500

== ENCOUNTER → 2024-02-07 08:02 | Outpatient (BNV) | payer OTHER, SELFPAY | PROVIDERS: PCP Internal Medicine; Visit Provider Nurse Practitioner | DX: R07.9 Chest pain, unspecified (principal) | CPT/HCPCS: 78452; 93016; 93018 ==

== ENCOUNTER 2024-03-11 10:02 | Outpatient (REF) | payer OTHER, SELFPAY ==
--- NOTE | ~2024-03-11 | XR_ITS ---
EXAMINATION: XR CHEST 2 VIEWS CLINICAL INFORMATION: Cough. COMPARISON: Prior chest radiographs, most recently 01/06/2024. TECHNIQUE: Frontal and lateral views of the chest were obtained. FINDINGS: The heart, great vessels, pulmonary vasculature and mediastinum are normal. The lungs show no focal infiltrate, effusion or pneumothorax. There is no acute osseous abnormality. XR/XR chest 2V IMPRESSION: No active cardiopulmonary disease.
== END 2024-03-11 10:03 | disposition home or self-care (01) ==
LOC: HO.XRAY 10:02
PROVIDERS: PCP Internal Medicine; Visit Provider Internal Medicine
DX: J20.9 Acute bronchitis, unspecified (principal)
CPT/HCPCS: 71046

== ENCOUNTER 2024-04-16 12:19 | Outpatient (AMB) | payer OTHER, SELFPAY ==
--- NOTE | 2024-04-16 12:28 | A.OFFPC_ITS ---
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 pt needs refills on all meds. Allergies No Known Allergies Allergy (Verified 04/16/24 12:54) Medication List - Last Reconciled 04/16/24 by SHANNAN Torres aspirin (Adult Low Dose Aspirin) 81 mg PO DAILY empagliflozin (Jardiance) 25 mg PO DAILY levothyroxine 50 mcg PO DAILY lisinopril 30 mg PO DAILY metformin 1,000 mg PO BID metoprolol succinate ER 50 mg PO DAILY omeprazole 20 mg PO DAILY simvastatin 40 mg PO BEDTIME Tobacco use date assessed: 04/16/24 Dental Screening Dental Screen Date: 04/16/24 Did you have a dental visit in the last 12 months?: No Did you have a dental problem in the last 6 months where you did not have access to dental care?: No Was dental information given to patient?: Patient has dentist HPI 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 Pt is a diabetic, on an CARL and a statin. A1C in office today is 7.2. Due for microalbumin, will order. Denies polyuria, polydipsia, and neuropathy. Pt denies any signs and symptoms of hypoglycemia and does know how to correct it. Pt started jardiance approximately 1 month ago. Eye exam is up to date. [facility] Medical History (Updated 04/16/24 @ 12:53 by SHANNAN Torres) Hyperlipidemia Hypertension PVC (premature ventricular contraction) Surgical History Hx of bilateral breast reduction surgery History of appendectomy H/O tubal ligation H/O hernia repair Family History Father No problems noted. 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 Cognitive needs: No Hearing needs: No Vision needs: No Questionnaire PHQ-9 Over the last 2 weeks, how often have you been bothered by any of the following problems? 1. Little interest or pleasure in doing things: not at all 2. Feeling down, depressed, or hopeless: several days 3. Trouble falling or staying asleep, or sleeping too much: not at all 4. Feeling tired or having little energy: not at all 5. Poor appetite or overeating: not at all 6. Feeling bad about yourself - or that you are a failure or have let yourself or your family down: not at all 7. Trouble concentrating on things, such as reading the newspaper or watching television: not at all 8. Moving or speaking so slowly that other people could have noticed. Or the opposite - being so fidgety or restless that you have been moving around a lot more than usual: not at all 9. Thoughts that you would be better off or of hurting yourself in some way: not at all Total score: 1 Depression Screening Interpretation: Negative Depression Screening Done: Yes 93361 - PHQ-9 Billing: Yes Source: Developed by Drs. Adan Navarro, Susana Ferris, Bart Rosario and colleagues, with an educational deepali from [employer]. Thrive Questionnaire Date Thrive assessed: 04/16/24 I am a: Patient What is your living situation today?: I have a steady place to live Within the past 12 months, did the food you bought not last and you didn't have the money to get more?: Often true Within the past 12 months, did you worry whether your food would run out before you got money to buy more?: Never true Do you have trouble paying for medicines?: No Do you have trouble getting transportation to medical appointments?: No Do you have trouble paying your heating and electricity bill?: No Do you have trouble taking care of your child, family member or friend?: No Do you have trouble with day-to-day activities such as bathing, preparing meals, shopping, managing finances, etc.?: No Are you currently unemployed and looking for a job?: No Are you interested in more education?: No Currently or been in a relationship where the following occur: I choose not to answer this question THRIVE Score: 1 AUDIT C Alcohol Use Questionnaire (AUDIT-C) 1. How often do you have a drink containing alcohol?: Never 3. How often do you have six or more drinks on one occasion?: Never Total Score: 0 Score Reviewed/Action Taken: No CARLOS-7 AMB Questionnaire CARLOS-7 Date CARLOS - 7 assessed: 04/16/24 Feeling nervous, anxious, or on edge: 0 = Not at all Not being able to stop or control worryin = Not at all Worrying too much about different things: 1 = Several days Trouble relaxin = Not at all Being so restless that it is hard to sit still: 0 = Not at all Becoming easily annoyed or irritable: 1 = Several days Feeling afraid as if something awful might happen: 0 = Not at all Total CARLOS-7 score (0-4 normal; 5-9 mild; 10-14 moderate; 15-21 severe): 2 Source: Developed by Drs. Adan Navarro, Susana Ferris, Bart Rosario and colleagues, with an educational deepali from [employer]. CARLOS-7 Assessment Billing CARLOS-7 Assessment Tool: CARLOS-7 Assessment 69016 Review of Systems Const Reports as per HPI Physical exam (Primary Care) Vital Signs: Last Vital Signs Pulse 72 04/16/24 12:30 BP 120/68 04/16/24 12:30 Pulse Ox 97 04/16/24 12:30 Oxygen Delivery Method Room Air 04/16/24 12:30 BMI result Body Mass Index 25.7 Tobacco/Smoking Status: Tobacco use Status Tobacco use date assessed 04/16/24 04/16/24 12:37 Patient Tobacco Use Status Never used Tobacco 04/16/24 12:30 e-Cigarette/Vaping Use Never Used 04/16/24 12:37 Depression Screening Interpretation: Negative Currently or been in a relationship where the following occur: I choose not to answer this question Const General: cooperative Orientation/consciousness: patient oriented x3 Resp Effort & Inspection: normal respiratory effort Auscultation: clear to auscultation bilaterally Cardio Rate: regular rate Rhythm: regular rhythm Heart sounds: S1 normal heart sound present and S2 normal heart sound present GI Other: small umbilical hernia Neuro General: patient oriented x3 Extrem Other: bilat feet: + sensation with use of monofilament, feet intact Psych Appearance: grossly normal Mental Status: mental status grossly normal Speech and movement: Normal speech and movement present Affect: normal affect Attitude: cooperative Thought process: Normal thought process present Thought content: Normal thought content present Insight: Good insight present (Psych) Judgement: Good judgement present (Psych) Results AMB Hemoglobin A1c AMB Hemoglobin A1c 7.2 % Last Edit by CHANG Apple on 04/16/24 13 :16 Immunizations pneumoc 20-margaret conj-dip cr(PF) 0.5 mL IM syringe Performing Provider: SHANNAN Torres Performing Location: [facility] Administered by: CHANG Apple on 04/16/24 13:13 Dose Route Admin Location Dispensed Lot Number Expiration Date NDC [employer] 0.5 mL IM Right Deltoid 0.5 mL [id number] 06/26/25 4540-5968-54 [employer]VERTILAS VIS Given Date VIS Provided VIS Publication Date 04/16/24 Single Vaccine 21 Eligibility Eligibility Date Funding Source Not VF Eligible 04/16/24 Private Results Reviewed Results Reviewed: Laboratory Last Values Hgb A1c (Clinic) 7.2 % (4.0-6.0) H 04/16/24 13:15 Assessment and Plan Assessment & Plan (1) Diabetes: Code(s): E11.9 - Type 2 diabetes mellitus without complications Plan: Labs ordered, encouraged working on diet and taking her meds as prescribed. Plan The patient agreed to the use of a emergency medicine medical director for this encounter. Scribed for SHANNAN Allen by Mary Meneses emergency medicine medical director, on 04/16/2024 at 12:50 EST. Orders: Orders Complete Blood Count Auto Diff Today E11.9 - Type 2 diabetes mellitus without complications TSH reflex Free T4 Today E11.9 - Type 2 diabetes mellitus without complications Lipid Panel Today E11.9 - Type 2 diabetes mellitus without complications Pneumococcal 20 Immunization Today Z23 - Encounter for immunization AMB Hemoglobin A1c Today Z13.9 - Encounter for screening, unspecified Comprehensive Nixon. Panel Fast Today E11.9 - Type 2 diabetes mellitus without complications UA CC w/rflx Micro + Cult Today E11.9 - Type 2 diabetes mellitus without complications Microalbumin, Random (w Creat) Today E11.9 - Type 2 diabetes mellitus without complications Coding Level of Care Code New Pt Level 3 (38806) Diagnoses Diabetes E11.9 Additional Codes CARLOS-7 Assessment Billing - CARLOS-7 Assessment Tool: CARLOS-7 Assessment [id number] ([id number])
[2024-04-16 12:30] VITALS: BP 120/68; PULSE 72; O2SAT 97; BMI 25.7
== END 2024-04-16 13:19 | disposition home or self-care (01) ==
PROVIDERS: PCP Internal Medicine; Visit Provider Nurse Practitioner Family
DX: E11.9 Type 2 diabetes mellitus without complications (principal); Z23 Encounter for immunization
CPT/HCPCS: 83036; 90471; 90677; 99203

== ENCOUNTER 2024-04-22 09:18 | Outpatient (REF) | payer OTHER, SELFPAY ==
[2024-04-22 10:32] LABS: Basophils Absolute Auto 0.1 X10*3/uL (0.0-0.2); Basophils Percent Auto 1.4 % (0-2); Eosinophils Absolute Auto 0.4 X10*3/uL (0.0-0.4); Eosinophils Percent Auto 4.8 % (0-4); Hematocrit 42.5 % (37.0-47.0); Hemoglobin 13.3 g/dl (12.0-16.0); Imm Gran Abs Auto 0.02 X10*3/uL (0.00-0.03); Imm Gran Pct Auto 0.3 % (0.0-0.4); Lymphocytes Absolute Auto 3.3 X10*3/uL (1.2-4.9); Lymphocytes Percent Auto 41.7 % (20-40); MANUAL DIFF FLAG SCAN; Mean Corpuscular HGB Conc 31.3 g/dl (31.0-35.0); Mean Corpuscular Volume 92.8 fL (80.0-98.0); Mean Platelet Volume 11.4 fL (9.4-12.3); Monocytes Absolute Auto 0.5 X10*3/uL (0.1-1.2); Monocytes Percent Auto 5.9 % (2-11); Neutrophils Absolute Auto 3.6 x10*3/uL (2.0-8.3); Neutrophils Percent Auto 45.9 % (45-73); Platelet Count 315 X10*3/uL (160-400); Red Blood Count 4.58 X10*6/uL (4.20-5.50); Red Cell Distribution Width 13.3 % (11.0-16.0); SCAN SMEAR FLAG 1; White Blood Count 7.9 X10*3/uL (4.8-10.8)
[2024-04-22 10:34] LABS: Appearance Urine Clear; Color Urine Yellow; Glucose Urine UA >=1000 mg/dL (Negative); Leukocyte Esterase Urine Negative (Negative); Nitrite Urine Negative (Negative); PH 5.5 (5.0-9.0); Specific Gravity - Urine >= 1.030 (1.005-1.025); UMIC TRIGGER UACC YES; Urine Blood Negative (Negative); Urine Ketones Negative (Negative); Urine Protein Negative (Neg-Trace)
[2024-04-22 10:41] LABS: Bacteria Urine None Seen (None Seen); Hyaline Casts Urine 0-2 /LPF (0-2); RBC Urine 0-2 /HPF (0-2); WBC Urine 0-5 /HPF (0-5)
[2024-04-22 11:06] LABS: Microalbum/Creatinine Ratio Ur 11.3 ug/mg cr (<30)
[2024-04-22 11:10] LABS: Alanine Aminotransferase 19 U/L (0-31); Albumin Level 4.1 g/dL (3.5-5.0); Alkaline Phosphatase 76 U/L (39-117); Anion Gap 11 (12-20); Aspartate Amino Transferase 23 U/L (5-31); Bilirubin Total 0.3 mg/dL (0.0-1.0); Blood Urea Nitrogen 9 mg/dL (9-16); Carbon Dioxide 26 mmol/L (22-29); Chloride 108 mmol/L (96-108); Cholesterol 125 mg/dL (<200); Estimated Glomerular Filt Rate > 60; Glucose Fasting 139 mg/dL (60-99); HDL Cholesterol 40 mg/dL (>40); LDL Cholesterol Calculated 66 mg/dL (<100); Potassium 4.2 mmol/L (3.3-5.1); Sodium 141 mmol/L (135-145); TSH reflex Free T4 1.57 uIU/mL (0.32-4.0); Total Protein 7.5 g/dL (6.5-8.0); Triglycerides 95 mg/dL (<150)
[2024-04-22 13:30] LABS: SLIDE REVIEW VERIFIED
== END 2024-04-22 09:19 | disposition home or self-care (01) ==
LOC: HO.HMGCLDS 09:18
PROVIDERS: PCP Nurse Practitioner Family; Visit Provider Nurse Practitioner Family
DX: E11.9 Type 2 diabetes mellitus without complications (principal)
CPT/HCPCS: 36415; 80053; 80061; 81001; 82043; 82570; 84443; 85025

== ENCOUNTER 2024-07-15 14:21 | Outpatient (AMB) | payer OTHER, SELFPAY ==
[2024-07-15 14:34] VITALS: BP 114/50; PULSE 68; BMI 24.7
--- NOTE | 2024-07-15 14:34 | MHC.OFFVIS ---
Vital Signs 07/15/24 14:34 Height 5 ft 6 in Weight 153 lb 0.013 oz BMI 24.7 BP 114/50 L Blood Pressure Location Rt brachial Position Sitting Pulse 68 Pulse Source Pulse Oximeter Intake Visit Reasons: 6 mth fu Telecommunications Administrator Required: No Allergies No Known Allergies Allergy (Verified 07/15/24 14:37) Medication List - Last Reconciled 07/15/24 by Qi Harris NP-C aspirin (Adult Low Dose Aspirin) 81 mg PO DAILY 90 days empagliflozin (Jardiance) 25 mg PO DAILY levothyroxine 50 mcg PO DAILY lisinopril 30 mg PO DAILY metformin 1,000 mg PO BID 90 days metoprolol succinate ER 50 mg PO DAILY omeprazole 20 mg PO DAILY simvastatin 40 mg PO BEDTIME HPI HPI 6 mth fu: Details: Darleen is a 64-year-old female past medical history of hypertension, hyperlipidemia, diabetes, PVCs, who was recently evaluated for chest discomfort. She underwent a nuclear stress test and now presents for follow-up. Today she reports that she has been doing well since her last office visit here in December. She has not had any recurrent chest discomfort. She tells me she has been very active with her family. She helps care for her disabled daughter and her granddaughter who has psychiatric issues. She denies any shortness of breath, palpitations, lightheadedness, presyncope, syncope, falls. She has good activity tolerance. Taking meds as directed. [facility] Medical History Hyperlipidemia Hypertension PVC (premature ventricular contraction) Surgical History Hx of bilateral breast reduction surgery History of appendectomy H/O tubal ligation H/O hernia repair Family History Father No problems noted. 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 Cognitive needs: No Hearing needs: No Vision needs: No Review of Systems Const All systems reviewed & are unremarkable except as noted in HPI and below ENT Denies dizziness Card Denies chest pain, Denies chest pain at rest, Denies chest pain with activity, Denies rapid heart rate, Denies pedal edema, Denies edema, Denies leg edema, Denies lightheadedness, Denies palpitations, Denies dyspnea, Denies dyspnea on exertion and Denies orthopnea Resp Denies cough, Denies dyspnea and Denies dyspnea on exertion GI Denies hematochezia and Denies change in stool character Musc Denies abnormal gait, Denies limited range of motion, Denies muscle cramps, Denies muscle weakness, Denies numbness, Denies radiating pain into limb, Denies stiffness and Denies tingling Neuro Denies abnormal gait, Denies dizziness, Denies numbness and Denies tingling Endo Denies palpitations Physical Exam Vital Signs: Last Vital Signs Pulse 68 07/15/24 14:34 BP 114/50 L 07/15/24 14:34 BMI result Body Mass Index 24.7 Const General: cooperative, healthy appearing, comfortable and no acute distress Orientation/consciousness: patient oriented x3 Neck Neck: Yes normal visual inspection and Yes no JVD Resp Effort & Inspection: normal respiratory effort Auscultation: clear to auscultation bilaterally, no crackles, no rales, no rhonchi and no wheezes Cardio Jugular venous distension: no JVD Rate: regular rate Rhythm: regular rhythm Heart sounds: S1 normal heart sound present, S2 normal heart sound present, no murmurs and no rubs Neuro General: patient oriented x3 Extrem General: Yes normal to inspection and No no pedal edema Psych Appearance: grossly normal Mental Status: mental status grossly normal Speech and movement: Normal speech and movement present Assessment & Plan Assessment & Plan (1) Chest pain: Code(s): R07.9 - Chest pain, unspecified Category: Medical Plan: ER evaluation 11/12/2023 for chest discomfort. Random Sharp pain that leaves a residual burning type sensation in the left chest region. She ruled out for ACS. ER evaluation on 01/06/24 for chest discomfort and again she ruled out for ACS. At that time she was thought to have costochondritis. On last visit she reported mild chest wall tenderness to palpation. She has no chest discomfort brought on by walking, stair climbing. She does have multiple cardiac risk factors including hypertension, hyperlipidemia and diabetes. An echocardiogram was done on 12/21/2023 showing EF 65-70%, no regional wall motion abnormalities, moderate asymmetric septal hypertrophy. A exercise stress test done 12/21/2023 with exercise close to 7 minutes, no anginal symptoms and borderline EKG abnormalities. An exercise nuclear stress test was done 02/07/2024 showing normal myocardial perfusion imaging. Test results reviewed with her in detail. This time she denies having any recent or concerning chest discomfort. There is no evidence her symptom was cardiac in nature. Signs and symptoms of angina reviewed with her. Continue with risk factor modification. Continue aspirin, simvastatin and metoprolol. Cardiology follow-up as needed. (2) Abnormal stress ECG: Code(s): R94.39 - Abnormal result of other cardiovascular function study Category: Medical Plan: Borderline EKG changes followed by normal myocardial perfusion imaging. (3) Palpitations: Code(s): R00.2 - Palpitations Category: Medical Plan: On prior visit had heports of heart palpitations like heart is skipping. She does have a known history of PVCs. A Holter monitor was done on 12/21/2023 for 2 days showing sinus rhythm with average heart rate 77, rare supraventricular and ventricular ectopy. She is on metoprolol XL 50 mg daily which can be continued. Today she denies any concerning heart palpitations. -can be followed by her PCP. (4) PVC (premature ventricular contraction): Code(s): I49.3 - Ventricular premature depolarization Category: Medical Plan: As above (5) Hypertension: Code(s): I10 - Essential (primary) hypertension Category: Medical Plan: Well controlled at this time. No med changes made. Plan Time spent on chart review, documentation, interview and assessment Coding Level of Care Code Est Pt Level 3 (55270) Diagnoses Chest pain R07.9 Abnormal stress ECG R94.39 Palpitations R00.2 PVC (premature ventricular contraction) I49.3 Hypertension I10 Time Spent (min) 24
== END 2024-07-15 15:04 | disposition home or self-care (01) ==
PROVIDERS: PCP Internal Medicine; Visit Provider Nurse Practitioner Family
DX: R07.9 Chest pain, unspecified (principal); R94.39 Abnormal result of other cardiovascular function study; R00.2 Palpitations; I49.3 Ventricular premature depolarization; I10 Essential (primary) hypertension
CPT/HCPCS: 99213

== ENCOUNTER → 2024-07-15 14:21 | Outpatient (BNVA) | payer OTHER, SELFPAY | PROVIDERS: PCP Internal Medicine; Visit Provider Nurse Practitioner Family ==

== ENCOUNTER 2024-08-06 10:12 | Outpatient (AMB) | payer OTHER, SELFPAY ==
[2024-08-06 10:14] VITALS: BP 110/70; PULSE 63; O2SAT 97; BMI 24.9
--- NOTE | 2024-08-06 10:14 | A.OFFPC_ITS ---
Vital Signs 08/06/24 10:14 Height 5 ft 6 in Weight 154 lb BMI 24.9 BP 110/70 Blood Pressure Location Rt brachial Position Sitting Pulse 63 Pulse Source Pulse Oximeter Pulse Oximetry (%) 97 Intake Visit Reasons: 3 month follow up Intake Note: pt is here for 3 month follow up Inspector Line Required: No Accompanied by: Self / Same As Patient Allergies No Known Allergies Allergy (Verified 08/06/24 10:51) Medication List - Last Reconciled 08/06/24 by SHANNAN Torres aspirin (Adult Low Dose Aspirin) 81 mg PO DAILY 90 days empagliflozin (Jardiance) 25 mg PO DAILY levothyroxine 50 mcg PO DAILY lisinopril 30 mg PO DAILY metformin 1,000 mg PO BID 90 days metoprolol succinate ER 50 mg PO DAILY omeprazole 20 mg PO DAILY simvastatin 40 mg PO BEDTIME Tobacco use date assessed: 04/16/24 Dental Screening Dental Screen Date: 04/16/24 HPI 3 month follow up HPI Details Pt is a diabetic, on an CARL and a statin. A1C in office today is 6.6. Microalbumin is up to date. Denies polyuria, polydipsia, and neuropathy. Pt denies any signs and symptoms of hypoglycemia and does know how to correct it. Pt has cerumen to her left ear. Ear lavage in office was unsuccessful and pt experienced discomfort. Will have pt use ear wax removal kit and hydrogen peroxide/water. [facility] Medical History Hyperlipidemia Hypertension PVC (premature ventricular contraction) Surgical History Hx of bilateral breast reduction surgery History of appendectomy H/O tubal ligation H/O hernia repair Family History Father No problems noted. 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 Cognitive needs: No Hearing needs: No Vision needs: No Questionnaire Thrive Questionnaire Date Thrive assessed: 04/16/24 CARLOS-7 AMB Questionnaire CARLOS-7 Date CARLOS - 7 assessed: 04/16/24 Source: Developed by Drs. Adan Navarro, Susana Ferris, Bart Rosario and colleagues, with an educational deepali from [employer]. Review of Systems Const Reports as per HPI Physical exam (Primary Care) Vital Signs: Last Vital Signs Pulse 63 08/06/24 10:14 BP 110/70 08/06/24 10:14 Pulse Ox 97 08/06/24 10:14 BMI result Body Mass Index 24.9 Tobacco/Smoking Status: Tobacco use Status Tobacco use date assessed 04/16/24 08/06/24 10:15 Patient Tobacco Use Status Never used Tobacco 08/06/24 10:15 e-Cigarette/Vaping Use Never Used 08/06/24 10:15 Thrive Assessment: Date of Thrive Assessment Date Thrive assessed 04/16/24 08/06/24 10:15 Const General: cooperative Orientation/consciousness: patient oriented x3 HENMT Other: cerumen noted to left ear, after ear lavage cerumen still present, pt had discomfort Resp Effort & Inspection: normal respiratory effort Auscultation: clear to auscultation bilaterally Cardio Rate: regular rate Rhythm: regular rhythm Heart sounds: S1 normal heart sound present and S2 normal heart sound present Neuro General: patient oriented x3 Extrem Other: bilat feet: + sensation with use of monofilament, feet intact Psych Appearance: grossly normal Mental Status: mental status grossly normal Speech and movement: Normal speech and movement present Affect: normal affect Attitude: cooperative Thought process: Normal thought process present Thought content: Normal thought content present Insight: Good insight present (Psych) Judgement: Good judgement present (Psych) Office Procedures Cerumen Removal From which ear canal was the cerumen removed: left Removal: irrigation Notes: no complications (cerumen remains. discomfort reported during procedure, so stopped) [id number] Irrigation/Lavage Results AMB Hemoglobin A1c AMB Hemoglobin A1c 6.6 % Last Edit by Seymour Paz CMA on 08/06/24 10: 35 Assessment and Plan Assessment & Plan (1) Diabetes: Code(s): E11.9 - Type 2 diabetes mellitus without complications Plan: Continue current meds (2) Cerumen impaction: Code(s): H61.20 - Impacted cerumen, unspecified ear Plan: told her she could use H2O2 and warm water/ear wax removal kit. Pt did not want me to use a spoon to attempt cerumen removal Plan The patient agreed to the use of a certified court/medical interpreter for this encounter. Scribed for VIVIENNE Allen- by Mary Meneses certified court/medical interpreter, on 08/06/2024 at 10:25 EST. Orders: Orders AMB Hemoglobin A1c Today Z13.9 - Encounter for screening, unspecified Coding Level of Care Code Est Pt Level 3 (88074) Diagnoses Diabetes E11.9 Cerumen impaction H61.20 CPT Codes Office Procedure - CPT: 62829-Jww Irrigation/Lavage ([id number])
== END 2024-08-06 12:08 | disposition home or self-care (01) ==
LOC: HO.HMGC 10:12
PROVIDERS: PCP Internal Medicine; Visit Provider Nurse Practitioner Family
DX: E11.9 Type 2 diabetes mellitus without complications (principal); H61.22 Impacted cerumen, left ear
CPT/HCPCS: 69209; 83036; 99213

== ENCOUNTER 2024-08-25 13:01 | Outpatient (AMB) | payer OTHER, SELFPAY ==
--- NOTE | 2024-08-25 13:21 | AM.OFFWIN_ITS ---
Intake Vital Signs 08/25/24 13:22 Height 5 ft 6 in Weight 153 lb 2 oz BMI 24.7 BP 130/64 Blood Pressure Location Lt brachial Position Sitting Intake Visit Reasons: EP Pain on left side to stomach Intake Note: Patient is here today for sick visit for pain in left side of stomach and radiate to the front, nauseas and no appetite. Patient Tobacco Use Status: Never used Tobacco Sorter Packer Required: No Heel Splitter: Not Required per policy Accompanied by: Self / Same As Patient Allergies No Known Allergies Allergy (Verified 08/25/24 13:22) Do you need a note to return to daycare/school/sports/work: No HPI HPI Comments History of Present Illness Details Patient is a 64-year-old female complaining of 1 day of left sided abdominal pain that radiates to the front, she describes the pain as sharp. She thought that it was gas so she took some Gas-X and it did not go away. She states she woke up this morning and it was feeling little worse, she has a little bit of nausea and no appetite, she states it is worse with sitting or if anything touches her abdomen, like when she crosses her leg and her thigh hits her lower abdomen. She denies any diarrhea or fevers, blood in her urine but does endorse a little bit of increased frequency of urination. She tells me she has a history of diverticulosis and kidney stones but it does not feel like the same pain she had with those diagnoses. [facility] Medical History Hyperlipidemia Hypertension PVC (premature ventricular contraction) Surgical History Hx of bilateral breast reduction surgery History of appendectomy H/O tubal ligation H/O hernia repair Family History Father No problems noted. 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 Cognitive needs: No Hearing needs: No Vision needs: No Review of Systems Const All systems reviewed & are unremarkable except as noted in HPI and below Physical Exam Vital Signs: Last Vital Signs BP 130/64 08/25/24 13:22 BMI result Body Mass Index 24.7 Const General: cooperative, healthy appearing, comfortable and no acute distress Orientation/consciousness: patient oriented x3 HEENT Head: Yes normal to inspection Ears: hearing grossly normal bilaterally General nose exam: Normal external nose present Face and sinus: Yes normal facial exam Neck Neck: Yes normal visual inspection, Yes trachea midline and Yes supple Resp Effort & Inspection: normal respiratory effort and able to speak in complete sentences GI Inspection: Yes normal to inspection Palpation (GI): Soft to palpation and Tenderness to palpation present (GI) (left flank) suprapubicly Skin General skin exam: no rashes or lesions noted Neuro General: patient oriented x3 Psych Appearance: grossly normal Speech and movement: Normal speech and movement present Attitude: cooperative Thought process: Normal thought process present Insight: Good insight present (Psych) Judgement: Good judgement present (Psych) Results AMB Urinalysis, Automated UA Leukoctes 0 [place]/uL Last Edit by Jlusi Hudson [facility] on 08/25/24 14:02 UA Nitrite Negative Last Edit by Jluis Hudson [place] on 08/25/24 14:02 UA Urobilinogen 0 mg/dL Last Edit by Jluis Hudson [facility] on 08/25/24 14:02 UA Protein 0 mg/dL Last Edit by Jluis Hudson [facility] on 08/25/24 14:02 UA pH 6.0 Last Edit by Jluis Hudson [facility] on 08/25/24 14:02 UA Blood 0 [place]/uL Last Edit by Jluis Hudson [facility] on 08/25/24 14:02 UA Specific [place] 1.020 Last Edit by JESSE Zambrano on 08/25/24 14: 02 UA Ketone Negative Last Edit by Jluis Hudson [facility] on 08/25/24 14:02 UA Bilirubin 0 mg/dL Last Edit by Jluis Hudson [facility] on 08/25/24 14:02 UA Glucose 3 mg/dL Last Edit by Jluis Hudson [facility] on 08/25/24 14:02 Assessment & Plan Assessment & Plan (1) Abdominal pain in female: Code(s): R10.9 - Unspecified abdominal pain Plan: Vital signs stable, UA negative for blood or infection, patient well-appearing, physical exam only remarkable for left flank pain. Recommended using Pepto- Bismol or similar. Gave red flag warning signs and when to go to the emergency department. Not likely kidney stones as there is no blood in her urine, negative CVA tenderness. Not likely diverticulitis as she has no diarrhea or fevers and the pain was more in the flank area than the left lower quadrant. Plan see above Orders: Orders AMB Urinalysis Automated Today Z13.9 - Encounter for screening, unspecified Coding Level of Care Code New Pt Level 3 (90788) Diagnoses Abdominal pain in female R10.9
[2024-08-25 13:22] VITALS: BP 130/64; BMI 24.7
== END 2024-08-25 14:08 | disposition home or self-care (01) ==
PROVIDERS: PCP Internal Medicine; Visit Provider Physician Assistant
DX: Z13.9 Encounter for screening, unspecified (principal); R10.9 Unspecified abdominal pain

== ENCOUNTER → 2024-08-25 13:01 | Outpatient (BNVA) | payer OTHER, SELFPAY | PROVIDERS: PCP Internal Medicine | DX: R10.9 Unspecified abdominal pain (principal) | CPT/HCPCS: 81003 ==

== ENCOUNTER 2024-08-31 15:42 | Emergency (ER) | payer OTHER, SELFPAY ==
--- NOTE | ~2024-08-31 | CT_ITS ---
EXAMINATION: CT ABDOMEN AND PELVIS WITH CONTRAST CLINICAL INFORMATION: Left lower quadrant pain with history of diverticulitis COMPARISON: CT abdomen pelvis 07/30/2023 TECHNIQUE: Multidetector volumetric images were obtained from the superior aspect of the liver through the pubic symphysis following administration 85 mL of Omnipaque 350 intravenous contrast. Sagittal and coronal reformatted images were obtained on the technologist's workstation. Oral contrast: No This CT examination was performed using dose optimization techniques as appropriate, variously including the following: *Automated exposure control *Adjustment of mA and/or kV according to patient size (this includes techniques or standardized protocols for targeted exams where dose is matched to indication/reason for exam; i.e. extremities or head) *Use of iterative reconstruction technique DLP: 496 mGy-cm FINDINGS: LUNG BASES: There is bibasilar atelectasis. LIVER, GALLBLADDER, AND BILIARY TREE: The liver is enlarged at 17.7 cm in greatest length. No focal hepatic lesion or biliary ductal dilatation is present. The gallbladder is unremarkable with no evidence of radiopaque gallstones, gallbladder wall thickening, or obvious pericholecystic inflammatory changes. PANCREAS: Unremarkable. SPLEEN: Unremarkable. ADRENAL GLANDS: Unremarkable. KIDNEYS AND URETERS: The kidneys are normal in size, shape, and attenuation. There is a 3 mm nonobstructing right renal calculus seen along with an additional punctate calcification similar to prior. No hydronephrosis, hydroureter, or left-sided or ureteral calculi seen. No perinephric stranding. BLADDER: Unremarkable. GASTROINTESTINAL TRACT: There is colonic diverticulosis most prominent in the sigmoid without diverticulitis . The small and large bowel are otherwise unremarkable. The appendix has been removed. ABDOMINAL WALL: Small periumbilical hernia is seen containing only fat. LYMPH NODES: No retroperitoneal lymphadenopathy. VASCULAR: Unremarkable. PELVIC VISCERA: An anteverted uterus is present with some calcified fibroids. An abnormal adnexal mass is not seen. There is an ovoid calcified structure in the cul-de-sac adjacent to the rectum which could represent an old avulsed epiploic appendage. This is not a worrisome finding, unchanged from prior. OSSEOUS STRUCTURES: Unremarkable. CT/CT abdomen pelvis w IV con IMPRESSION: 1. A cause for the patient's left lower quadrant pain has not been found. 2. Incidental note made of mild hepatomegaly, nonobstructing right renal calculi, colonic diverticulosis without diverticulitis and other findings described above. Fleischner guidelines were followed. Electronically signed by: Antonio Campbell MD 09/01/2024 12:13 AM EDT RP
[2024-08-31 16:08] VITALS: BP 136/68; PULSE 67; RESP 18; TEMP 36.6; O2SAT 98; BMI 24.2
[2024-08-31 16:14] VITALS: BP 137/76; PULSE 64; RESP 16; TEMP 37; O2SAT 99
--- NOTE | 2024-08-31 16:14 | ED.GENADULT ---
HPI - General Adult General Chief complaint: Abdominal Pain Stated complaint: LT side abd pain Time Seen by Provider: 08/31/24 20:09 Source: patient Limitations: no limitations History of Present Illness ED Provider: Shante aguilera PA-C HPI narrative: 64-year-old female with a history of prior diverticulitis presents with abdominal pain x1 week. Pain most focal over left lower abdomen, unable to describe the nature of her discomfort. The pain is intermittent, and nonradiating. Associated diarrhea, especially every time she eats. Patient has been nauseous at times. Denies vomiting, fever. Denies dysuria, hematuria or history of kidney stones. Patient states she saw her primary care provider who gave her nausea medication. Related Data Previous Rx's ?Medication ?Instructions ?Recorded levothyroxine 50 mcg tablet 50 mcg PO DAILY #90 tabs 07/16/24 metformin 1,000 mg tablet 1,000 mg PO BID 90 days #180 tabs 07/16/24 aspirin 81 mg tablet,delayed 81 mg PO DAILY 90 days #90 tabs 07/18/24 release (Adult Low Dose Aspirin) simvastatin 40 mg tablet 40 mg PO BEDTIME #90 tabs 07/29/24 empagliflozin 25 mg tablet 25 mg PO DAILY #90 tabs 08/26/24 (Jardiance) lisinopril 30 mg tablet 30 mg PO DAILY #90 tabs 08/26/24 metoprolol succinate 50 mg 50 mg PO DAILY #90 tabs 08/26/24 tablet,extended release 24 hr omeprazole 20 mg capsule,delayed 20 mg PO DAILY #90 caps 08/26/24 release Allergies Allergy/AdvReac Type Severity Reaction Status Date / Time No Known Allergies Allergy Verified 08/31/24 16:10 Review of Systems Review of Systems: Yes all other systems are reviewed and are negative Constitutional: Constitutional: Denies fatigue and Denies fever(s) Cardiovascular: Cardiovascular: Denies chest pain Respiratory: Respiratory: Denies cough Gastrointestinal: Gastrointestinal: Reports abdominal pain, Reports diarrhea, Reports nausea and Denies vomiting Genitourinary: Genitourinary: Denies dysuria Endocrine: Endocrine: Denies fatigue [facility] Past Medical History Attestation statement: The following information was validated with the patient. Medical History Hyperlipidemia Hypertension PVC (premature ventricular contraction) Surgical History Hx of bilateral breast reduction surgery History of appendectomy H/O tubal ligation H/O hernia repair Family History Family History Father No problems noted. 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 Cognitive needs: No Hearing needs: No Vision needs: No Physical Exam ED Vital Signs: Vital Signs - 24 hr 08/31/24 16:08 08/31/24 16:14 Temperature 98 F 98.6 F Pulse Rate 67 64 Respiratory Rate 18 16 Blood Pressure 136/68 137/76 Pulse Oximetry 98 99 Oxygen Delivery Method Room Air Room Air BMI result Body Mass Index 24.2 Const Other: Alert, overall well in appearance Orientation/consciousness: patient oriented x3 Resp Effort & Inspection: normal respiratory effort Cardio Other: Normal peripheral perfusion GI Other: Abdomen is soft, nondistended, mild tenderness over left lower quadrant to suprapubic region without guarding Skin Other: Warm dry no rash Neuro General: patient oriented x3, no focal motor deficits and CN's II-XI intact bilaterally Psych Other: Calm cooperative Course Course Course Narrative: RME performed by Arcelia Christensen PA-C. Patient is a 64 year old assigned female at presenting to the emergency department with abdominal pain over the last week. Detailed physical exam and review of systems are deferred to the synchronous motor assembler. Labs and swabs ordered. Patient placed back in the waiting room pending room availability and results. Medications Administered Discontinued Medications Generic Name Dose Route Start Last Admin Trade Name Freq PRN Reason Stop Dose Admin Sodium Chloride 1,000 mls @ 999 mls/hr 08/31/24 20:45 08/31/24 22:12 Ns IV 08/31/24 21:45 Infused .Q1H1M THO Infusion Iohexol 85 ml 08/31/24 22:09 08/31/24 22:10 Iohexol 350 Mg/Ml 100 Ml Infus..Btl IV 08/31/24 22:10 85 ml ONCE ONE Administration Medical Decision Making Medical Decision Making [facility] Narrative: 64-year-old female with a history of prior diverticulitis presents with abdominal pain x1 week. Pain most focal over left lower abdomen, unable to describe the nature of her discomfort. The pain is intermittent, and nonradiating. Associated diarrhea, especially every time she eats. Patient has been nauseous at times. Denies vomiting, fever. Denies dysuria, hematuria or history of kidney stones. Patient states she saw her primary care provider who gave her nausea medication. Problem: Diverticulitis History: Per patient I have considered the following differential diagnoses: Diverticulitis, viral gastroenteritis, renal colic, UTI, Plan: Given distribution of discomfort, nature of symptoms, and patient's history, I am considering diverticulitis, we will obtain a CT scan. Her symptoms are minimal, giving IV fluid and antinausea medicine. Does not sound to be viral gastroenteritis, she is having mild symptoms and no sick contacts with similar GI upset. Thought about other pathology such as renal colic and UTI, however she has no related symptoms, she has never had left flank pain. I have independently reviewed the following tests: Labs: No leukocytosis, not anemic, no electrolyte abnormality, urine not infected CT abdomen and pelvis:CT ABDOMEN AND PELVIS WITH CONTRAST CLINICAL INFORMATION: Left lower quadrant pain with history of diverticulitis COMPARISON: CT abdomen pelvis 07/30/2023 TECHNIQUE: Multidetector volumetric images were obtained from the superior aspect of the liver through the pubic symphysis following administration 85 mL of Omnipaque 350 intravenous contrast. Sagittal and coronal reformatted images were obtained on the technologist's workstation. Oral contrast: No This CT examination was performed using dose optimization techniques as appropriate, variously including the following: *Automated exposure control *Adjustment of mA and/or kV according to patient size (this includes techniques or standardized protocols for targeted exams where dose is matched to indication/reason for exam; i.e. extremities or head) *Use of iterative reconstruction technique DLP: 496 mGy-cm FINDINGS: LUNG BASES: There is bibasilar atelectasis. LIVER, GALLBLADDER, AND BILIARY TREE: The liver is enlarged at 17.7 cm in greatest length. No focal hepatic lesion or biliary ductal dilatation is present. The gallbladder is unremarkable with no evidence of radiopaque gallstones, gallbladder wall thickening, or obvious pericholecystic inflammatory changes. PANCREAS: Unremarkable. SPLEEN: Unremarkable. ADRENAL GLANDS: Unremarkable. KIDNEYS AND URETERS: The kidneys are normal in size, shape, and attenuation. There is a 3 mm nonobstructing right renal calculus seen along with an additional punctate calcification similar to prior. No hydronephrosis, hydroureter, or left-sided or ureteral calculi seen. No perinephric stranding. BLADDER: Unremarkable. GASTROINTESTINAL TRACT: There is colonic diverticulosis most prominent in the sigmoid without diverticulitis . The small and large bowel are otherwise unremarkable. The appendix has been removed. ABDOMINAL WALL: Small periumbilical hernia is seen containing only fat. LYMPH NODES: No retroperitoneal lymphadenopathy. VASCULAR: Unremarkable. PELVIC VISCERA: An anteverted uterus is present with some calcified fibroids. An abnormal adnexal mass is not seen. There is an ovoid calcified structure in the cul-de-sac adjacent to the rectum which could represent an old avulsed epiploic appendage. This is not a worrisome finding, unchanged from prior. OSSEOUS STRUCTURES: Unremarkable. CT/CT abdomen pelvis w IV con IMPRESSION: 1. A cause for the patient's left lower quadrant pain has not been found. 2. Incidental note made of mild hepatomegaly, nonobstructing right renal calculi, colonic diverticulosis without diverticulitis and other findings described above. Fleischner guidelines were followed. Electronically signed by: Antonio Campbell MD 09/01/2024 12:13 AM EDT Lab Data 08/31/24 16:23 08/31/24 16:23 Labs: Lab Results 08/31/24 08/31/24 08/31/24 Range/Units 16:23 21:13 22:31 WBC 9.9 (4.8-10.8) X10*3/uL RBC 4.73 (4.20-5.50) X10*6/uL Hgb 13.5 (12.0-16.0) g/dl Hct 42.3 (37.0-47.0) % MCV 89.4 (80.0-98.0) fL MCH 28.5 (27.0-33.0) pg MCHC 31.9 (31.0-35.0) g/dl RDW 14.3 (11.0-16.0) % Plt Count 328 (160-400) X10*3/uL MPV 10.5 (9.4-12.3) fL Immature Gran % (Auto) 0.1 (0.0-0.4) % Neut % (Auto) 50.4 (45-73) % Lymph % (Auto) 39.0 (20-40) % Dale % (Auto) 6.6 (2-11) % Eos % (Auto) 2.7 (0-4) % Baso % (Auto) 1.2 (0-2) % Lymph # (Auto) 3.9 (1.2-4.9) X10*3/uL [place] # (Auto) 0.7 (0.1-1.2) X10*3/uL Eos # (Auto) 0.3 (0.0-0.4) X10*3/uL Baso # (Auto) 0.1 (0.0-0.2) X10*3/uL Abs Immat Gran (auto) 0.01 (0.00-0.03) X10*3/uL Absolute Neuts (auto) 5.0 (2.0-8.3) x10*3/uL Absolute Nucleated RBC 0.000 (0.0-0.012) X10*3/uL Nucleated RBC % (auto) 0.0 (0.0-0.2) /100WBC Sodium 144 (135-145) mmol/L Potassium 4.7 (3.3-5.1) mmol/L Chloride 108 (96-108) mmol/L Carbon Dioxide 24 (22-29) mmol/L Anion Gap 17 (12-20) BUN 11 (9-16) mg/dL Creatinine 0.75 (0.5-1.4) mg/dL Estim Creat Clear Calc 72.8 Estimated GFR > 60 POC Glucose 76 (60-115) mg/dL Random Glucose 101 (60-115) mg/dL Calcium 10.9 H D (8.4-10.2) mg/dL Magnesium 1.8 (1.6-2.6) mg/dL Total Bilirubin 0.3 (0.0-1.0) mg/dL AST 24 (5-31) U/L ALT 18 (0-31) U/L Alkaline Phosphatase 65 (39-117) U/L Total Protein 8.3 H (6.5-8.0) g/dL Albumin 4.3 (3.5-5.0) g/dL Urine Color Yellow Urine Appearance Clear Urine pH 5.5 (5.0-9.0) Ur Specific [place] >= 1.030 H (1.005-1.025) Urine Protein Negative (Neg-Trace) mg/dL Urine Glucose (UA) >=1000 H (Negative) mg/dL Urine Ketones Trace (Negative) mg/dL Urine Blood Negative (Negative) Urine Nitrite Negative (Negative) Ur Leukocyte Esterase Negative (Negative) Urine RBC 0-2 (0-2) /HPF Urine WBC 0-5 (0-5) /HPF Ur Squamous Epith Cells 3-5 (0-2) /HPF Urine Bacteria None Seen (None Seen) Hyaline Casts 0-2 (0-2) /LPF Influenza Type A (PCR) NEGATIVE (Negative) Influenza Type B (PCR) NEGATIVE (Negative) RSV RNA Qual (PCR) NEGATIVE (Negative) SARS-CoV-2 RNA (RT-PCR) NEGATIVE (Negative) Discharge Plan Discharge Clinical Impression: Abdominal pain Patient Disposition: Home, Self-Care Instructions: Abdominal Pain (ED) Additional Instructions: All of your labs were normal. The CT scan did not reveal any acute infection, it was a completely normal scan. Follow up with your primary care provider as needed. Prescriptions: No Action levothyroxine 50 mcg tablet 50 mcg PO DAILY Qty: 90 1RF metformin 1,000 mg tablet 1,000 mg PO BID 90 Days Qty: 180 1RF aspirin [Adult Low Dose Aspirin] 81 mg tablet,delayed release (DR/EC) 81 mg PO DAILY 90 Days Qty: 90 1RF simvastatin 40 mg tablet 40 mg PO BEDTIME Qty: 90 0RF lisinopril 30 mg tablet 30 mg PO DAILY Qty: 90 1RF omeprazole 20 mg capsule,delayed release(DR/EC) 20 mg PO DAILY Qty: 90 1RF metoprolol succinate 50 mg tablet extended release 24 hr 50 mg PO DAILY Qty: 90 1RF Jardiance 25 mg tablet 25 mg PO DAILY Qty: 90 1RF Interventions: ED Discharge Assessment Last Done: 09/01/24 01:10 Discharge Date/Time: 09/01/24 01:11 Print Language: Ukrainian
[2024-08-31 16:29] LABS: Basophils Absolute Auto 0.1 X10*3/uL (0.0-0.2); Basophils Percent Auto 1.2 % (0-2); Eosinophils Absolute Auto 0.3 X10*3/uL (0.0-0.4); Eosinophils Percent Auto 2.7 % (0-4); Hematocrit 42.3 % (37.0-47.0); Hemoglobin 13.5 g/dl (12.0-16.0); Imm Gran Abs Auto 0.01 X10*3/uL (0.00-0.03); Imm Gran Pct Auto 0.1 % (0.0-0.4); Lymphocytes Absolute Auto 3.9 X10*3/uL (1.2-4.9); MANUAL DIFF FLAG NO; Mean Corpuscular HGB Conc 31.9 g/dl (31.0-35.0); Mean Corpuscular Hemoglobin 28.5 pg (27.0-33.0); Mean Corpuscular Volume 89.4 fL (80.0-98.0); Mean Platelet Volume 10.5 fL (9.4-12.3); Monocytes Absolute Auto 0.7 X10*3/uL (0.1-1.2); Monocytes Percent Auto 6.6 % (2-11); Neutrophils Percent Auto 50.4 % (45-73); Platelet Count 328 X10*3/uL (160-400); Red Blood Count 4.73 X10*6/uL (4.20-5.50); Red Cell Distribution Width 14.3 % (11.0-16.0); White Blood Count 9.9 X10*3/uL (4.8-10.8)
[2024-08-31 16:45] LABS: Alanine Aminotransferase 18 U/L (0-31); Albumin Level 4.3 g/dL (3.5-5.0); Alkaline Phosphatase 65 U/L (39-117); Anion Gap 17 (12-20); Aspartate Amino Transferase 24 U/L (5-31); Bilirubin Total 0.3 mg/dL (0.0-1.0); Blood Urea Nitrogen 11 mg/dL (9-16); Calcium 10.9 mg/dL (8.4-10.2); Carbon Dioxide 24 mmol/L (22-29); Chloride 108 mmol/L (96-108); Creatinine Clr Calc Pharmacy 72.8; Estimated Glomerular Filt Rate > 60; Glucose Random 101 mg/dL (60-115); Magnesium 1.8 mg/dL (1.6-2.6); Potassium 4.7 mmol/L (3.3-5.1); Sodium 144 mmol/L (135-145); Total Protein 8.3 g/dL (6.5-8.0)
[2024-08-31 17:12] LABS: Influenza A PCR NEGATIVE (Negative); Influenza B PCR NEGATIVE (Negative); Resp Syncy Virus RNA Qual PCR NEGATIVE (Negative); SARS COV2 PCR INHOUSE NEGATIVE (Negative)
[2024-08-31] MEDS: 0.9 % Sodium Chloride 1,000 ML 999 ML IV (21:11)
[2024-08-31 21:26] LABS: Appearance Urine Clear; Color Urine Yellow; Glucose Urine UA >=1000 mg/dL (Negative); Leukocyte Esterase Urine Negative (Negative); Nitrite Urine Negative (Negative); PH 5.5 (5.0-9.0); Specific Gravity - Urine >= 1.030 (1.005-1.025); UMIC TRIGGER UACC YES; Urine Blood Negative (Negative); Urine Ketones Trace mg/dL (Negative); Urine Protein Negative (Neg-Trace)
[2024-08-31 21:31] LABS: Bacteria Urine None Seen (None Seen); Hyaline Casts Urine 0-2 /LPF (0-2); RBC Urine 0-2 /HPF (0-2); WBC Urine 0-5 /HPF (0-5)
[2024-08-31] MEDS: iohexoL 350 MG/ML 100 ML INFUS..BTL 85 ML IV (22:10)
[2024-08-31 22:34] LABS: Glucose, Whole Blood 76 mg/dL (60-115)
[2024-09-01 01:10] VITALS: BP 144/84; PULSE 68; RESP 16; TEMP 36.6; O2SAT 98
== END 2024-09-01 01:11 | disposition home or self-care (01) ==
PROVIDERS: Physician Assistant Medical; Emergency Provider Internal Medicine; PCP Nurse Practitioner Family
DX: R10.2 Pelvic and perineal pain (principal); R11.2 Nausea with vomiting, unspecified; Z03.818 Encounter for observation for suspected exposure to other biological agents ruled out; Z79.899 Other long term (current) drug therapy
CPT/HCPCS: 0241U; 74177; 80053; 81001; 82947; 83735; 85025; 96360; 99283; 99284; Q9967

== ENCOUNTER 2024-11-05 15:07 | Outpatient (AMB) | payer OTHER, SELFPAY ==
[2024-11-05 15:27] VITALS: BP 100/54; PULSE 63; BMI 24.8
--- NOTE | 2024-11-05 15:27 | A.OFFVIS_ITS ---
Vital Signs 11/05/24 15:27 Height 5 ft 6 in Weight 153 lb 14.122 oz BMI 24.8 BP 100/54 L Blood Pressure Location Lt brachial Position Sitting Pulse 63 Pulse Source Monitor Intake Visit Reasons: 1 year follow up Intake Note: 1 yr f/up Channeler Required: No Accompanied by: Self / Same As Patient Allergies No Known Allergies Allergy (Verified 08/31/24 16:10) Medication List - Last Reconciled 11/05/24 by Jluis Mena MD aspirin (Adult Low Dose Aspirin) 81 mg PO DAILY 90 days empagliflozin (Jardiance) 25 mg PO DAILY levothyroxine 50 mcg PO DAILY lisinopril 30 mg PO DAILY metformin 1,000 mg PO BID 90 days metoprolol succinate ER 50 mg PO DAILY omeprazole 20 mg PO DAILY simvastatin 40 mg PO BEDTIME HPI Comments Details: Here for follow-up. She was found to have an abnormal heart rhythm during a routine follow-up visit. She said she had some palpitations off and on at nighttime when she was laying in bed. 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 She does not have much symptoms during the day except occasionally when she is sitting down. She has no history of syncope. She has no chest discomfort or shortness of breath. EKG showed sinus rhythm, LVH with repolarization changes and QTC of 471 millisecond. She was sent for a Holter monitor by Dr. Walters which showed frequent premature ventricle complexes. She had 7% PVCs in 24 hours. She was then sent for a stress test. Stress echo did not show any regional wall motion abnormalities and was essentially normal. Also during exercise her PVCs burden decreased. She has been feeling well without any palpitations. She was started on metoprolol succinate. She has been doing fine since then. She still gets off and on palpitations but they are not bothersome to her. On follow up she continues to be stable. She has no significant change in her symptoms and is not bothered by any symptoms. 10/31/2023. She returns for follow-up. She has been doing well. Denying palpitations. No chest pain shortness of breath. 11/05/2024: She is here for follow-up. He is saying that she caught a virus. She is stuffy. Blood pressure is low. She is not lightheaded or dizzy. [facility] Medical History (Reviewed 08/06/24 @ 10:49 by Myron Sullivan, [facility]) Hyperlipidemia Hypertension PVC (premature ventricular contraction) Surgical History Hx of bilateral breast reduction surgery History of appendectomy H/O tubal ligation H/O hernia repair Family History Father No problems noted. 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 Cognitive needs: No Hearing needs: No Vision needs: No Review of Systems Const Denies chills, Denies fatigue, Denies fever(s), Denies frequent falls, Denies weakness, Denies weight gain and Denies weight loss ENT Denies dizziness Card Denies chest pain, Denies leg edema, Denies lightheadedness, Denies palpitations, Denies dyspnea and Denies dyspnea on exertion Resp Denies cough, Denies dyspnea and Denies dyspnea on exertion GI Denies hematochezia Musc Denies abnormal gait, Denies muscle weakness, Denies numbness, Denies radiating pain into limb and Denies tingling Neuro Denies abnormal gait, Denies dizziness, Denies frequent falls, Denies numbness, Denies tingling and Denies weakness Endo Denies fatigue and Denies palpitations Physical Exam Vital Signs: Last Vital Signs Pulse 63 11/05/24 15:27 BP 100/54 L 11/05/24 15:27 BMI result Body Mass Index 24.8 GENERAL APPEARANCE: in no acute distress, well developed, well nourished. NECK/THYROID: no carotid bruit, no jugular venous distention. SKIN: warm and dry. HEART: no murmurs, regular rate and rhythm. LUNGS: clear to auscultation bilaterally. ABDOMEN: normal, bowel sounds present, soft, nontender, nondistended. EXTREMITIES: no edema. PERIPHERAL PULSES: equal. NEUROLOGIC: nonfocal, alert and oriented. PSYCH: mood/affect full range. Office Procedures EKG Details: Sinus rhythm 63 beats per minute, normal axis, QTC 399 milliseconds. [id number], Complete Assessment & Plan Assessment & Plan (1) Hypertension: Code(s): I10 - Essential (primary) hypertension Category: Medical (2) PVC (premature ventricular contraction): Code(s): I49.3 - Ventricular premature depolarization Category: Medical (3) Palpitations: Code(s): R00.2 - Palpitations Category: Medical Plan 64-year-old female who is here for follow-up. She has background history of palpitations and hypertension. She had PVCs on her Holter monitor. She was managed with metoprolol succinate and has been doing well. Blood pressure is low and she is saying she has lost weight and apparently is coming down with a virus 2. I have advised her to increase the lisinopril to 20 mg daily. Continue Toprol- XL at 50 mg daily. Follow-up with us in 1 year. Thank you for allowing me to participate in the care of your patient. Please feel free to contact me if you have any questions. Medications: New lisinopril 20 mg PO DAILY 60 tabs 4RF I10 - Essential (primary) hypertension Discontinued lisinopril Discontinued Reason: Doctor's Order 30 mg PO DAILY 90 tabs 1RF Coding Level of Care Code Est Pt Level 4 (66380) Diagnoses Hypertension I10 PVC (premature ventricular contraction) I49.3 Palpitations R00.2 CPT Codes EKG - CPT: 27958-[id number], Complete ([id number])
== END 2024-11-05 15:42 | disposition home or self-care (01) ==
PROVIDERS: PCP Internal Medicine; Visit Provider Internal Medicine Cardiovascular Disease
DX: I10 Essential (primary) hypertension (principal); I49.3 Ventricular premature depolarization; R00.2 Palpitations
CPT/HCPCS: 93010; 99214

== ENCOUNTER → 2024-11-05 15:07 | Outpatient (BNVA) | payer OTHER, SELFPAY | PROVIDERS: PCP Internal Medicine; Visit Provider Internal Medicine Cardiovascular Disease | DX: I10 Essential (primary) hypertension (principal); R00.2 Palpitations; I49.3 Ventricular premature depolarization | CPT/HCPCS: 93005 ==

== ENCOUNTER 2024-12-01 10:04 | Outpatient (REF) | payer OTHER, SELFPAY ==
[2024-12-01 13:11] LABS: Appearance Urine Turbid; Color Urine Yellow; Glucose Urine UA >=1000 mg/dL (Negative); Leukocyte Esterase Urine Negative (Negative); Nitrite Urine Negative (Negative); PH 5.5 (5.0-9.0); Specific Gravity - Urine >= 1.030 (1.005-1.025); UMIC TRIGGER UACC YES; Urine Blood Negative (Negative); Urine Ketones Negative (Negative); Urine Protein Negative (Neg-Trace)
[2024-12-01 13:14] LABS: Bacteria Urine None Seen (None Seen); Hyaline Casts Urine 0-2 /LPF (0-2); RBC Urine 0-2 /HPF (0-2); UACC Culture Trigger YES
[2024-12-01 13:21] LABS: Basophils Absolute Auto 0.1 X10*3/uL (0.0-0.2); Basophils Percent Auto 1.2 % (0-2); Eosinophils Absolute Auto 0.2 X10*3/uL (0.0-0.4); Hemoglobin 14.1 g/dl (12.0-16.0); Imm Gran Abs Auto 0.02 X10*3/uL (0.00-0.03); Imm Gran Pct Auto 0.2 % (0.0-0.4); Lymphocytes Absolute Auto 2.9 X10*3/uL (1.2-4.9); Lymphocytes Percent Auto 36.2 % (20-40); MANUAL DIFF FLAG NO; Mean Corpuscular HGB Conc 30.7 g/dl (31.0-35.0); Mean Corpuscular Hemoglobin 28.2 pg (27.0-33.0); Mean Platelet Volume 11.8 fL (9.4-12.3); Monocytes Absolute Auto 0.6 X10*3/uL (0.1-1.2); Monocytes Percent Auto 7.6 % (2-11); Neutrophils Absolute Auto 4.2 x10*3/uL (2.0-8.3); Neutrophils Percent Auto 51.8 % (45-73); Platelet Count 332 X10*3/uL (160-400); Red Cell Distribution Width 14.5 % (11.0-16.0); White Blood Count 8.1 X10*3/uL (4.8-10.8)
[2024-12-01 14:05] LABS: Alanine Aminotransferase 22 U/L (0-31); Albumin Level 4.3 g/dL (3.5-5.0); Alkaline Phosphatase 70 U/L (39-117); Anion Gap 9 (12-20); Aspartate Amino Transferase 26 U/L (5-31); Bilirubin Total 0.4 mg/dL (0.0-1.0); Blood Urea Nitrogen 11 mg/dL (9-16); Carbon Dioxide 27 mmol/L (22-29); Chloride 109 mmol/L (96-108); Cholesterol 159 mg/dL (<200); Estimated Glomerular Filt Rate > 60; Glucose Fasting 121 mg/dL (60-99); HDL Cholesterol 49 mg/dL (>40); LDL Cholesterol Calculated 93 mg/dL (<100); Potassium 4.3 mmol/L (3.3-5.1); Sodium 141 mmol/L (135-145); Triglycerides 89 mg/dL (<150)
[2024-12-01 14:09] LABS: TSH reflex Free T4 0.93 uIU/mL (0.32-4.0); Vitamin D 25-OH Total 23.8 ng/mL (>30)
== END 2024-12-01 10:05 | disposition home or self-care (01) ==
LOC: HO.HMGCLDS 10:04
PROVIDERS: PCP Nurse Practitioner Family; Visit Provider Nurse Practitioner Family
DX: E11.9 Type 2 diabetes mellitus without complications (principal); Z78.0 Asymptomatic menopausal state
CPT/HCPCS: 36415; 80053; 80061; 81001; 82306; 84443; 85025; 87086

== ENCOUNTER 2024-12-09 08:02 | Outpatient (AMB) | payer OTHER, SELFPAY ==
[2024-12-09 08:08] VITALS: BP 110/62; PULSE 86; O2SAT 96; BMI 24.7
--- NOTE | 2024-12-09 08:08 | A.OFFPC_ITS ---
Vital Signs 12/09/24 08:08 Height 5 ft 6 in Weight 153 lb BMI 24.7 BP 110/62 Blood Pressure Location Lt brachial Position Sitting Pulse 86 Pulse Source Pulse Oximeter Pulse Oximetry (%) 96 Oxygen Delivery Method Room Air Intake Visit Reasons: 4 mon /up - DM Intake Note: pt is here for 4 mon /, A1c done in office today Academic Affairs Assistant Required: No Accompanied by: Self / Same As Patient Allergies No Known Allergies Allergy (Verified 12/09/24 08:08) Medication List - Last Reconciled 12/09/24 by VIVIENNE Torres- aspirin (Adult Low Dose Aspirin) 81 mg PO DAILY 90 days cholecalciferol (vitamin D3) 50 mcg PO DAILY empagliflozin (Jardiance) 25 mg PO DAILY levothyroxine 50 mcg PO DAILY lisinopril 20 mg PO DAILY metformin 1,000 mg PO BID 90 days metoprolol succinate ER 50 mg PO DAILY omeprazole 20 mg PO DAILY simvastatin 40 mg PO BEDTIME Tobacco use date assessed: 12/09/24 Dental Screening Dental Screen Date: 12/09/24 Did you have a dental visit in the last 12 months?: Yes Did you have a dental problem in the last 6 months where you did not have access to dental care?: No Was dental information given to patient?: Patient has dentist HPI Sun/ - DM HPI Details Chief Complaint The patient presents for management of diabetes and preventive health measures. History of Present Illness The patient is a 64-year-old female presenting with Type 2 Diabetes Mellitus. Her current glycated hemoglobin (A1c) is 6.8%, indicating well-managed blood glucose levels. She reports no neuropathy, polyuria, polydipsia, headache, b lurred vision, chest pain, or shortness of breath. Her last A1c was within normal limits, and lifestyle modifications have been crucial in managing the condition. There are no reported hypoglycemic events or hospitalizations due to diabetes complications. The patient's blood pressure has remained stable, an important factor in her diabetes management regime. Social History Health Maintenance - Vitamin D deficiency observed; further supplementation advised. - Eye exam reported up to date. - Referral initiated for colonoscopy scr eening. - Mammogram pending verification; order to be placed. Review of Systems - Neurological: Denies headache, blurred vision, neuropathy. - Constitutional: Denies fever, chills. - Respiratory: Denies shortness of breat h. - Cardiovascular: Denies chest pain. - Genitourinary: Denies polyuria, polydi psia. Physical Exam General: Cooperative, healthy appearing, comfortable, no acute distress and well developed Orientation: Patient oriented x3 Limitations: No limitations Head: Normal to inspection Ears: Hearing grossly normal bilaterally Nose: Normal external nose present Face and sinus: Normal facial exam Eyes: Appearance normal, both eyes and all related structures Neck: Normal visual inspection and Yes full ROM Respiratory: Normal respiratory effort and able to speak in complete sentences. Clear to auscultation bilaterally Cardiovascular: Regular rate and rhythm. Normal S1 and S2 GI: Normal to inspection. Soft to palpation and nontender Skin: No rashes or lesions noted Neuro: Patient oriented x3 Extremities: Positive sensation with use of monofilaments bilaterally. Feet were intact bilaterally Results - Labs: A1c at 6.8%. Vitamin D levels ar e low. Plan - Continue monitoring A1c levels as part of diabetes management. - Supplement Vitamin D due to deficiency . - Initiate referral for colonoscopy scre ening. - Verify and update mammogram record; or vivek placed for repeat mammogram if needed. Patient was informed and verbally consented to the use of an ambient scribe for clinic note documentation during this visit. Discussion Notes I discussed the current management and follow-up regimen for her Type 2 Diabetes Mellitus, emphasizing the importance of maintaining her healthy A1c levels. I recommended supplementation for her Vitamin D deficiency and explained the significance of this in bone health. Additionally, I detailed the necessity of keeping up-to-date with her preventive health screenings, including colonoscopy and mammography. She agreed to referrals and supplementary interventions as discussed. Patient Instructions - Maintain current diabetes management p oracio, focusing on diet and exercise. - Begin Vitamin D supplementation as pre scribed. - Attend recommended screenings: Colonos copy and confirm mammogram scheduling. - Report any new symptoms such as change s in vision or sensation in feet. [facility] Medical History Hyperlipidemia Hypertension PVC (premature ventricular contraction) Surgical History Hx of bilateral breast reduction surgery History of appendectomy H/O tubal ligation H/O hernia repair Family History Father No problems noted. 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 Cognitive needs: No Hearing needs: No Vision needs: No Questionnaire PHQ-9 Over the last 2 weeks, how often have you been bothered by any of the following problems? 1. Little interest or pleasure in doing things: more than half the days 2. Feeling down, depressed, or hopeless: more than half the days 3. Trouble falling or staying asleep, or sleeping too much: not at all 4. Feeling tired or having little energy: not at all 5. Poor appetite or overeating: not at all 6. Feeling bad about yourself - or that you are a failure or have let yourself or your family down: not at all 7. Trouble concentrating on things, such as reading the newspaper or watching television: not at all 8. Moving or speaking so slowly that other people could have noticed. Or the opposite - being so fidgety or restless that you have been moving around a lot more than usual: not at all 9. Thoughts that you would be better off or of hurting yourself in some way: not at all Total score: 4 Depression Screening Interpretation: Negative Depression Screening Done: Yes 25508 - PHQ-9 Billing: Yes Source: Developed by Drs. Adan Navarro, Susana Ferris, Bart Rosario and colleagues, with an educational deepali from [employer]. Thrive Questionnaire Date Thrive assessed: 12/09/24 I am a: Patient What is your living situation today?: I have a steady place to live Within the past 12 months, did the food you bought not last and you didn't have the money to get more?: Never true Within the past 12 months, did you worry whether your food would run out before you got money to buy more?: Never true Do you have trouble paying for medicines?: No Do you have trouble getting transportation to medical appointments?: No Do you have trouble paying your heating and electricity bill?: No Do you have trouble taking care of your child, family member or friend?: No Do you have trouble with day-to-day activities such as bathing, preparing meals, shopping, managing finances, etc.?: No Are you currently unemployed and looking for a job?: No Are you interested in more education?: No Please select the resources that you would like help with: None Currently or been in a relationship where the following occur: No concerns reported THRIVE Score: 0 AUDIT C Alcohol Use Questionnaire (AUDIT-C) 1. How often do you have a drink containing alcohol?: Never 3. How often do you have six or more drinks on one occasion?: Never Total Score: 0 Score Reviewed/Action Taken: Yes CARLOS-7 AMB Questionnaire CARLOS-7 Date CARLOS - 7 assessed: 12/09/24 Feeling nervous, anxious, or on edge: 0 = Not at all Not being able to stop or control worryin = Not at all Worrying too much about different things: 2 = More than half the days Trouble relaxin = Not at all Being so restless that it is hard to sit still: 0 = Not at all Becoming easily annoyed or irritable: 2 = More than half the days Feeling afraid as if something awful might happen: 0 = Not at all Total CARLOS-7 score (0-4 normal; 5-9 mild; 10-14 moderate; 15-21 severe): 4 Source: Developed by Drs. Adan Navarro, Susana Ferris, Bart Rosario and colleagues, with an educational deepali from [employer]. CARLOS-7 Assessment Billing CARLOS-7 Assessment Tool: CARLOS-7 Assessment 71773 Physical exam (Primary Care) Vital Signs: Last Vital Signs Pulse 86 12/09/24 08:08 BP 110/62 12/09/24 08:08 Pulse Ox 96 12/09/24 08:08 Oxygen Delivery Method Room Air 12/09/24 08:08 BMI result Body Mass Index 24.7 Tobacco/Smoking Status: Tobacco use Status Tobacco use date assessed 12/09/24 12/09/24 08:09 Patient Tobacco Use Status Never used Tobacco 12/09/24 08:09 e-Cigarette/Vaping Use Never Used 12/09/24 08:09 PHQ-9: PHQ-9 Score PHQ-9: Total score 4 12/09/24 08:09 Depression Screening Interpretation: Negative Thrive Assessment: Date of Thrive Assessment Date Thrive assessed 12/09/24 12/09/24 08:11 Currently or been in a relationship where the following occur: No concerns reported Results AMB Hemoglobin A1c AMB Hemoglobin A1c 6.8 % Last Edit by Seymour Paz CMA on 12/09/24 08: 33 Coding Level of Care Code Est Pt Level 3 (64092) Diagnoses Screening for colon cancer Z12.11 Diabetes E11.9 Vitamin D deficiency E55.9 Additional Codes CARLOS-7 Assessment Billing - CARLOS-7 Assessment Tool: CARLOS-7 Assessment 48168 ([id number]) PHQ-9 - 26186 - PHQ-9 Billing: Yes ([id number]) Assessment & Plan Assessment & Plan (1) Screening for colon cancer: Code(s): Z12.11 - Encounter for screening for malignant neoplasm of colon Category: Medical (2) Diabetes: Code(s): E11.9 - Type 2 diabetes mellitus without complications Category: Medical (3) Vitamin D deficiency: Code(s): E55.9 - Vitamin D deficiency, unspecified Category: Medical Plan . Orders: Orders MM screening mammo BI Today Z12.31 - Encounter for screening mammogram for malignant neoplasm of breast AMB Hemoglobin A1c Today Z13.9 - Encounter for screening, unspecified Referrals Gastroenterology Referral Z12.11 - Encounter for screening for malignant neoplasm of colon Medications: New cholecalciferol (vitamin D3) 50 mcg PO DAILY 90 caps 0RF
== END 2024-12-09 08:47 | disposition home or self-care (01) ==
PROVIDERS: PCP Internal Medicine; Visit Provider Nurse Practitioner Family
DX: Z12.11 Encounter for screening for malignant neoplasm of colon (principal); E11.9 Type 2 diabetes mellitus without complications; E55.9 Vitamin D deficiency, unspecified; Z13.9 Encounter for screening, unspecified

== ENCOUNTER → 2024-12-09 08:02 | Outpatient (BNVA) | payer OTHER, SELFPAY | PROVIDERS: PCP Internal Medicine; Visit Provider Nurse Practitioner Family | DX: Z00.00 Encounter for general adult medical examination without abnormal findings (principal); E11.9 Type 2 diabetes mellitus without complications; E55.9 Vitamin D deficiency, unspecified | CPT/HCPCS: 83036; 96127 ==

== ENCOUNTER 2024-12-16 09:08 | Outpatient (REF) | payer OTHER, SELFPAY | END 2024-12-16 09:09 | disposition home or self-care (01) | LOC: HO.MAMMO 09:08 | PROVIDERS: PCP Nurse Practitioner Family; Visit Provider Nurse Practitioner Family | DX: Z12.31 Encounter for screening mammogram for malignant neoplasm of breast (principal) | CPT/HCPCS: 77063; 77067 ==

== ENCOUNTER → 2024-12-16 09:15 | Outpatient (BNV) | payer OTHER, SELFPAY | PROVIDERS: PCP Nurse Practitioner Family; Visit Provider Internal Medicine | DX: Z12.31 Encounter for screening mammogram for malignant neoplasm of breast (principal) | CPT/HCPCS: 77063; 77067 ==

== ENCOUNTER 2025-06-10 15:13 | Outpatient (AMB) | payer OTHER, SELFPAY ==
[2025-06-10 15:15] VITALS: BP 122/60; PULSE 67; TEMP 37.1; O2SAT 97; BMI 24.4
--- NOTE | 2025-06-10 15:15 | MHC.PC.OV ---
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 Account Manager Required: No Accompanied by: Self / Same As Patient Allergies No Known Allergies Allergy (Verified 06/10/25 16:11) Medication List - Last Reconciled 06/10/25 by VIVIENNE Torres- aspirin (Adult Low Dose Aspirin) 81 mg PO DAILY 90 days cholecalciferol (vitamin D3) (Vitamin D3) 50 mcg PO DAILY empagliflozin (Jardiance) 25 mg PO DAILY levothyroxine 50 mcg PO DAILY lisinopril 20 mg PO DAILY meclizine 50 mg PO DAILY PRN metformin 1,000 mg PO BID 90 days metoprolol succinate ER 50 mg PO DAILY omeprazole 20 mg PO DAILY simvastatin 40 mg PO BEDTIME Tobacco use date assessed: 06/10/25 Dental Screening Dental Screen Date: 06/10/25 Did you have a dental visit in the last 12 months?: Yes Did you have a dental problem in the last 6 months where you did not have access to dental care?: No Was dental information given to patient?: Patient has dentist HPI 6 months f/up-a1c needed HPI Details Chief Complaint The patient presents for follow-up on diabetes management. History of Present Illness The patient is a 65-year-old female presenting with follow-up on diabetes management. She reports intermittent neuropathy in her toes, although it is not severe. The sensation in her feet, including toes, was intact upon examination with a monofilament. Her hemoglobin A1c is currently 6.5%, indicating stable glycemic control. She reports feeling well overall and was congratulated on maintaining stable A1c levels. Social History Health Maintenance Review of Systems - Neurological: Reports intermittent neuropathy in toes. Denies severe neuropathy. - General: Reports feeling well overall. Physical Exam General: Cooperative, healthy appearing, comfortable, no acute distress and well developed Orientation: Patient oriented x3 Limitations: No limitations Head: Normal to inspection Ears: Hearing grossly normal bilaterally Nose: Normal external nose present Face and sinus: Normal facial exam Eyes: Appearance normal, both eyes and all related structures Neck: Normal visual inspection and Yes full ROM Respiratory: Normal respiratory effort and able to speak in complete sentences. Clear to auscultation bilaterally Cardiovascular: Regular rate and rhythm. Normal S1 and S2 GI: Normal to inspection. Soft to palpation and nontender Skin: No rashes or lesions noted Neuro: Positive sensation with use of monofilament of feet, including toes. Intact. Extremities: Normal to inspection Results - Labs: Hemoglobin A1c is 6.5% Plan The patient's diabetes management will continue with regular monitoring of her hemoglobin A1c levels to ensure they remain stable. Orders for laboratory tests will be placed to further assess her condition. The patient is advised to report any worsening of neuropathy symptoms. Patient was informed and verbally consented to the use of an ambient scribe for clinic note documentation during this visit. Discussion Notes I discussed with the patient the importance of maintaining her current diabetes management plan to keep her hemoglobin A1c stable. We also talked about the need for regular lab tests and the importance of monitoring her neuropathy symptoms. Patient Instructions - Continue current diabetes management plan. - Schedule and complete lab tests as ordered. - Monitor for any changes in neuropathy symptoms and report if they worsen. [facility] Medical History Hyperlipidemia Hypertension PVC (premature ventricular contraction) Surgical History Hx of bilateral breast reduction surgery History of appendectomy H/O tubal ligation H/O hernia repair Family History Father No problems noted. 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 Cognitive needs: No Hearing needs: No Vision needs: No Questionnaire Thrive Questionnaire Date Thrive assessed: 06/10/25 I am a: Patient What is your living situation today?: I have a steady place to live Within the past 12 months, did the food you bought not last and you didn't have the money to get more?: Never true Within the past 12 months, did you worry whether your food would run out before you got money to buy more?: Never true Do you have trouble paying for medicines?: No Do you have trouble getting transportation to medical appointments?: No Do you have trouble paying your heating and electricity bill?: No Do you have trouble taking care of your child, family member or friend?: No Do you have trouble with day-to-day activities such as bathing, preparing meals, shopping, managing finances, etc.?: No Are you currently unemployed and looking for a job?: No Are you interested in more education?: No Please select the resources that you would like help with: None Currently or been in a relationship where the following occur: No concerns reported THRIVE Score: 0 CARLOS-7 AMB Questionnaire CARLOS-7 Date CARLOS - 7 assessed: 12/09/24 Feeling nervous, anxious, or on edge: 0 = Not at all Not being able to stop or control worryin = Not at all Worrying too much about different things: 1 = Several days Trouble relaxin = Not at all Being so restless that it is hard to sit still: 0 = Not at all Becoming easily annoyed or irritable: 1 = Several days Feeling afraid as if something awful might happen: 0 = Not at all Total CARLOS-7 score (0-4 normal; 5-9 mild; 10-14 moderate; 15-21 severe): 2 Source: Developed by Drs. Adan Navarro, Susana Ferris, Bart Rosario and colleagues, with an educational deepali from [employer] [facility]. CARLOS-7 Assessment Billing CARLOS-7 Assessment Tool: CARLOS-7 Assessment 95055 Physical exam (Primary Care) Vital Signs: Last Vital Signs Temp 98.8 F 06/10/25 15:15 Pulse 67 06/10/25 15:15 BP 122/60 06/10/25 15:15 Pulse Ox 97 06/10/25 15:15 Oxygen Delivery Method Room Air 06/10/25 15:15 BMI result Body Mass Index 24.4 Tobacco/Smoking Status: Tobacco use Status Tobacco use date assessed 06/10/25 06/10/25 15:19 Patient Tobacco Use Status Never used Tobacco 06/10/25 15:19 e-Cigarette/Vaping Use Never Used 06/10/25 15:19 Thrive Assessment: Date of Thrive Assessment Date Thrive assessed 06/10/25 06/10/25 15:19 Currently or been in a relationship where the following occur: No concerns reported Results AMB Hemoglobin A1c AMB Hemoglobin A1c 6.5 % Last Edit by Yamilex Guzmán MA on 06/10/25 15:38 Results Reviewed Results Reviewed: Laboratory Last Values Hgb A1c (Clinic) 6.5 % (4.0-6.0) H 06/10/25 15:32 Coding Level of Care Code Est Pt Level 3 (04181) Diagnoses Diabetes E11.9 Additional Codes CARLOS-7 Assessment Billing - CARLOS-7 Assessment Tool: CARLOS-7 Assessment 34596 ([id number]) Assessment & Plan Assessment & Plan (1) Diabetes: Code(s): E11.9 - Type 2 diabetes mellitus without complications Category: Medical Plan . Orders: Orders AMB Hemoglobin A1c Today Z13.9 - Encounter for screening, unspecified TSH reflex Free T4 Today E11.9 - Type 2 diabetes mellitus without complications UA CC w/rflx Micro + Cult Today E11.9 - Type 2 diabetes mellitus without complications Microalbumin, Random (w Creat) Today E11.9 - Type 2 diabetes mellitus without complications Complete Blood Count Auto Diff Today E11.9 - Type 2 diabetes mellitus without complications Comprehensive [place]. Panel Fast Today E11.9 - Type 2 diabetes mellitus without complications Lipid Panel Today E11.9 - Type 2 diabetes mellitus without complications
--- OUTSIDE RECORDS SUMMARY | 2025-06-10 15:34 | XMS_ITS | Patient Health Record ---
Author Organization [facility] Address [address] [place] [address] Care Team Providers Care Ed Transporter Name Role Phone Chriss Mehta Primary Care Provider Adan Jhaveri [phone] Reason For Referral No Information Medications Medication SIG (Take, Route, Frequency, Duration) Notes Start Date End Date Status Omeprazole 20 MG TAKE 1 CAPSULE BY MOUTH EVERY DAY Oral for 30 Active Metoprolol Succinate ER 50 MG TAKE 1 TABLET BY MOUTH EVERY DAY Oral for 30 Active Aspirin Adult Low Dose 81 MG 1 tablet Orally Once a day for 30 day(s) Active Diclofenac Sodium 75 MG TAKE 1 TABLET BY MOUTH TWICE A DAY FOR 15 DAYS Oral for 15 Not-Taking Ibuprofen 600 MG TAKE 1 TABLET BY SCOTT TH EVERY 8 HOURS NEEDED FOR PAIN Oral as needed Active metroNIDAZOLE 500 MG 1 [address] Or[address] ee times a day for 10 day(s) Not-Taking Simvastatin 40 MG TAKE 1 TABLET BY SCOTT TH EVERY DAY Oral for 90 Active metFORMIN HCl 1000 MG TAKE 1 TABLET BY M OUTH TWICE A DAY Oral for 90 Active Lisinopril 30 MG TAKE 1 TABLET BY SCOTT TH EVERY DAY Oral for 90 Active Levothyroxine Sodium 50 MCG TAKE 1 TABLET BY MOUTH EVERY DAY Oral for 30 Active LORazepam 0.5 MG (Schedule IV Drug) TAKE 1 TABLET BY MOUTH TWICE A DAY NEEDED Oral for 5 Active Immunizations Vaccine Route Administration Date Status Comme nts Influenza Unknown 07/27/2018 Administered Social History Tobacco Use: Social History Observation Description Date Details (start date - stop date) Never Smoker NA - NA Tobacco Use/Smoking Question Answer Notes Patient is a nonsmoker Alcohol Screen Question Answer Notes Did you have a drink containing alcohol in the p ast year? No Points 0 Interpretation Negative Section Notes: Nonsmoker; no sig alcohol Problems Problem Type SNOMED Code ICD Code Onset Dates Problem Status W/U Status Risk Notes Problem [id number] Positive colorectal cancer screening using Cologuard test (R19.5) Active confirmed Plan Of Treatment Future Test Test Name Order Date COLONOSCOPY 05/22/2019 Insurance Providers Payer Name Payer Address Payer Phone Subscriber Number Group Number Insured Name Patient Relationship to Insured Coverage Start Date Coverage End Date [facility] [address] [facility] [place] [phone] [id number] DAREN FISHER Self - patient is the insured Medical (General) History Medical History History ICD Code Denies CA,CVA,Lung disease,renal disease NIDDM Irregular heart beat Hypertension Hypercholesterolemia Hypothyroid Migraines Kidney stone Diverticulitis in 05/2018-treated with ou tpatient antibiotics Surgical History Surgery Date(Month/Year) Appendectomy 2007 Breast reduction 2002
== END 2025-06-10 16:00 | disposition home or self-care (01) ==
LOC: HO.HMCC 15:14
PROVIDERS: PCP Nurse Practitioner Family; Visit Provider Nurse Practitioner Family
DX: E11.9 Type 2 diabetes mellitus without complications (principal); Z13.9 Encounter for screening, unspecified

== ENCOUNTER → 2025-06-10 15:13 | Outpatient (BNVA) | payer OTHER, SELFPAY | PROVIDERS: PCP Nurse Practitioner Family; Visit Provider Nurse Practitioner Family | DX: E11.40 Type 2 diabetes mellitus with diabetic neuropathy, unspecified (principal) | CPT/HCPCS: 83036; 96127 ==

== ENCOUNTER 2025-08-10 15:46 | Emergency (ER) | payer OTHER, SELFPAY ==
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
[2025-08-10 15:58] VITALS: BP 133/72; PULSE 75; RESP 18; TEMP 36.4; O2SAT 97; BMI 24.2
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
--- OUTSIDE RECORDS SUMMARY | 2025-08-10 21:52 | XMS_ITS | Patient Health Record ---
Author Organization [facility] Address [address] [place] [address] Care Team Providers Care Lease Attendant Name Role Phone Chriss Mehta Primary Care Provider Adan Jhaveri [phone] Reason For Referral No Information Medications Medication [...] Problem Status W/U Status Risk Notes Problem [id number] Positive colorectal cancer screening using Cologuard test (R19.5) Active confirmed Plan Of Treatment Future Test Test Name Order Date COLONOSCOPY 05/22/2019 Insurance Providers Payer Name Payer Address Payer Phone Subscriber Number Group Number Insured Name Patient Relationship to Insured Coverage Start Date Coverage End Date [facility] [address] [facility] [place] [phone] [id number] DAREN FISHER Self - patient is the insured Medical (General) History Medical History History ICD Code Denies [place],CVA,Lung disease,renal disease NIDDM Irregular heart beat Hypertension Hypercholesterolemia Hypothyroid Migraines Kidney stone Diverticulitis in 05/2018-treated with ou tpatient antibiotics Surgical History Surgery Date(Month/Year) Appendectomy 2007 Breast reduction 2002
--- OUTSIDE RECORDS SUMMARY | 2025-08-10 21:52 | XMS_ITS | Clinical Summary ---
Author Organization [facility] Address [address] [place], [place] [id number] Phone Care Team Providers Care Solderer Dipper Name Role Phone Chriss Mehta DO Primary Care Provider [phone] Social History Tobacco Use Types Packs/Day Years Used Date Smoking Tobacco: Never Assessed Comments Unknown Sex and Gender Information Value Date Recorded Sex Assigned at Not on file Legal Sex Female 9:56 AM EDT Gender Identity Not on file Sexual Orientation Not on file Plan of Treatment Not on file Medical Devices Not on file [facility] HMO Care Teams Solderer Dipper Relationship Specialty Start Date End Date Chriss Mehta DO [email or web address] PCP - General Internal Medicine 08/15/19 Additional Source Comments The information contained in this document represents components of the legal health record. It is not the complete legal health record.[facility]
[2025-08-10] MEDS: Lidocaine 4 % Patch ADH..PATCH 2 PATCH TRANSDERMA (22:08)
[2025-08-10 22:10] VITALS: BP 133/72; PULSE 75; RESP 18; TEMP 36.4; O2SAT 97
== END 2025-08-10 22:11 | disposition home or self-care (01) ==
PROVIDERS: Emergency Provider Student in an Organized Health Care Education/Training Program; PCP Nurse Practitioner Family
DX: S39.012A Strain of muscle, fascia and tendon of lower back, initial encounter (principal); V43.52XA Car driver injured in collision with other type car in traffic accident, initial encounter; Y93.89 Activity, other specified; Y92.488 Other paved roadways as the place of occurrence of the external cause; Y99.8 Other external cause status; Z87.39 Personal history of other diseases of the musculoskeletal system and connective tissue; Z79.899 Other long term (current) drug therapy
CPT/HCPCS: 72072; 72125; 99283; 99284

== ENCOUNTER → 2025-08-10 16:00 | Outpatient (BNV) | payer OTHER, SELFPAY | PROVIDERS: PCP Nurse Practitioner Family; Visit Provider Radiology Diagnostic Radiology | DX: M54.2 Cervicalgia (principal); M54.6 Pain in thoracic spine | CPT/HCPCS: 72072; 72125 ==

== ENCOUNTER 2025-08-13 10:41 | Outpatient (AMB) | payer OTHER, SELFPAY ==
[2025-08-13 10:42] VITALS: BP 130/74; PULSE 76; O2SAT 98; BMI 24.5
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
--- OUTSIDE RECORDS SUMMARY | 2025-08-13 12:51 | XMS_ITS | Clinical Summary ---
Author Organization [facility] Address [address] [place], [place] [address] Phone Care Team Providers Care Architectural Administrative Assistant Name Role Phone Chriss Mehta DO Primary Care Provider [phone] Social History Tobacco Use Types Packs/Day Years Used Date Smoking Tobacco: Never Assessed Comments Unknown Sex and Gender Information Value Date Recorded Sex Assigned at Not on file Legal Sex Female 9:56 AM EDT Gender Identity Not on file Sexual Orientation Not on file Plan of Treatment Not on file Medical Devices Not on file Insurance [facility] [place] [place] [place] [facility] [place] [facility] [place] [facility] [place] [facility] [place] [facility] [place] [facility] [place] [facility] H[facility] Care Teams Architectural Administrative Assistant Relationship Specialty Start Date End Date Chriss Mehta DO [email or web address] PCP - General Internal Medicine 08/15/19 Additional Source Comments The information contained in this document represents components of the legal health record. It is not the complete legal health record.[facility]
--- OUTSIDE RECORDS SUMMARY | 2025-08-13 12:51 | XMS_ITS | Patient Health Record ---
Author Organization [facility] Address [address] [place] [address] Care Team Providers Care Paper And Prints Restorer Name Role Phone Chriss Mehta Primary Care Provider Adan Jhaveri [phone] Reason For Referral No Information Medications Medication [...] Problem Status W/U Status Risk Notes Problem [id number] Positive colorectal cancer screening using Cologuard test (R19.5) Active confirmed Plan Of Treatment Future Test Test Name Order Date COLONOSCOPY 05/22/2019 Insurance Providers Payer Name Payer Address Payer Phone Subscriber Number Group Number Insured Name Patient Relationship to Insured Coverage Start Date Coverage End Date [facility] [address] [facility] [place] [phone] [id number] DAREN FISHER Self - patient is the insured Medical (General) History Medical History History ICD Code Denies [place],CVA,Lung disease,renal disease NIDDM Irregular heart beat Hypertension Hypercholesterolemia Hypothyroid Migraines Kidney stone Diverticulitis in 05/2018-treated with ou tpatient antibiotics Surgical History Surgery Date(Month/Year) Appendectomy 2007 Breast reduction 2002
== END 2025-08-13 11:27 | disposition home or self-care (01) ==
LOC: HO.HMCC 10:41
PROVIDERS: PCP Nurse Practitioner Family; Visit Provider Physician Assistant
DX: S46.812A Strain of other muscles, fascia and tendons at shoulder and upper arm level, left arm, initial encounter (principal); V89.2XXA Person injured in unspecified motor-vehicle accident, traffic, initial encounter; M54.41 Lumbago with sciatica, right side

== ENCOUNTER 2025-09-02 14:52 | Outpatient (REF) | payer OTHER, SELFPAY ==
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
== END 2025-09-02 14:53 | disposition home or self-care (01) ==
LOC: HO.HMGCX 14:52
PROVIDERS: PCP Nurse Practitioner Family; Visit Provider Nurse Practitioner Family
DX: M89.8X1 Other specified disorders of bone, shoulder (principal); V89.2XXA Person injured in unspecified motor-vehicle accident, traffic, initial encounter
CPT/HCPCS: 73000

== ENCOUNTER → 2025-09-02 14:57 | Outpatient (BNV) | payer OTHER, SELFPAY | PROVIDERS: PCP Nurse Practitioner Family; Visit Provider Radiology Diagnostic Radiology | DX: Z04.3 Encounter for examination and observation following other accident (principal) | CPT/HCPCS: 73000 ==

== ENCOUNTER 2025-11-03 13:19 | Outpatient (AMB) | payer OTHER, SELFPAY ==
[2025-11-03 13:58] VITALS: BP 110/56; PULSE 62; BMI 24.0
--- NOTE | 2025-11-03 13:58 | MHC.OFFVIS ---
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 Accompanied by: Self / Same As Patient Allergies No Known Allergies Allergy (Verified 11/03/25 14:11) Medication List - Last Reconciled 11/03/25 by Justo Rodriguez NP acetaminophen 1,000 mg (2 x 500 mg) PO .q8 PRN aspirin (Adult Low Dose Aspirin) 81 mg PO DAILY 90 days empagliflozin (Jardiance) 25 mg PO DAILY ibuprofen 600 mg PO Q8H PRN levothyroxine 50 mcg PO DAILY lisinopril 20 mg PO DAILY metformin 1,000 mg PO BID 90 days metoprolol succinate ER 50 mg PO DAILY omeprazole 20 mg PO DAILY simvastatin 40 mg PO BEDTIME HPI Comments Details: This is a 65-year-old female patient coming in for a yearly follow-up visit. Patient with history of hypertension, hyperlipidemia, diabetes, and PVCs. Patient today is reporting feeling well overall without any cardiac symptoms of exertional chest pain, shortness of breath, palpitations, dizziness, orthopnea, PND, leg edema, presyncope or syncope. Patient is reporting compliance with all her medications and notes that patient is working on losing weight which was commended for. [facility] Medical History Abnormal stress ECG Chest discomfort Hyperlipidemia Hypertension PVC (premature ventricular contraction) Surgical History Hx of bilateral breast reduction surgery History of appendectomy H/O tubal ligation H/O hernia repair Family History Father No problems noted. 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 Cognitive needs: No Hearing needs: No Vision needs: No Review of Systems Const Denies daytime sleepiness, Denies difficulty sleeping, Denies snoring, Denies stops breathing during sleep and Denies weakness Card Denies chest pain, Denies rapid heart rate, Denies irregular heart rhythm, Denies claudication, Denies leg edema, Denies lightheadedness, Reports palpitations, Denies dyspnea, Denies dyspnea on exertion, Denies orthopnea, Denies paroxysmal nocturnal dyspnea and Denies slow heart rate Resp Denies cough, Denies dyspnea, Denies dyspnea on exertion and Denies snoring GI Reports no additional complaints, Denies hematochezia, Denies change in stool character and Denies dyspepsia Musc Denies abnormal gait, Denies muscle weakness and Denies numbness Neuro Denies abnormal gait, Denies numbness and Denies weakness Endo Reports palpitations Physical Exam Vital Signs: Last Vital Signs Pulse 62 11/03/25 13:58 BP 110/56 L 11/03/25 13:58 BMI result Body Mass Index 24.0 Const General: cooperative, healthy appearing, comfortable and no acute distress Orientation/consciousness: patient oriented x3 HEENT Head: Yes normal to inspection Neck Neck: Yes normal visual inspection, Yes trachea midline and Yes supple Chest Chest palpation & inspection: normal inspection of the chest Resp Effort & Inspection: normal respiratory effort Auscultation: clear to auscultation bilaterally, no crackles, no rales, no rhonchi and no wheezes Cardio Jugular venous distension: no JVD Palpation: normal PMI Rate: regular rate Rhythm: regular rhythm Heart sounds: S1 normal heart sound present, S2 normal heart sound present, no click, no gallops, no murmurs and no rubs Peripheral pulses: Peripheral pulses 2+ throughout GI Inspection: Yes normal to inspection Palpation (GI): Soft to palpation Auscultation: normal bowel sounds Skin General skin exam: no rashes or lesions noted Neuro General: patient oriented x3 Extrem General: Yes normal to inspection, No no pedal edema and No calf tenderness Psych Appearance: grossly normal Mental Status: mental status grossly normal Speech and movement: Normal speech and movement present Office Procedures EKG Details: EKG today showed normal sinus rhythm, rate 62 beats per minute, nonspecific ST-T, normal ID, [place]. [id number], Complete Assessment & Plan Assessment & Plan (1) PVC (premature ventricular contraction): Code(s): I49.3 - Ventricular premature depolarization Category: Medical (2) Hypertension: Code(s): I10 - Essential (primary) hypertension Category: Medical (3) Hyperlipidemia: Code(s): E78.5 - Hyperlipidemia, unspecified Category: Medical (4) Diabetes: Code(s): E11.9 - Type 2 diabetes mellitus without complications Category: Medical Plan 12/21/2023-Holter study showed a underlying normal sinus rhythm with rare PACs and PVCs. 12/21/2023-echo study showed a normal LV systolic function with an ejection fraction between 65-70%, moderate septal asymmetric hypertrophy, and low-normal RV systolic function. Myocardial perfusion study on 02/07/2024 showed normal perfusion. Clinically stable and without any cardiac symptoms. Continue metoprolol therapy. Blood pressure today is stable. Continue lisinopril. Advised monitoring blood pressures at home with a goal less than 130/80. Most recent A1c improved at 6.5%. Continue with the aggressive diabetes management, followed by PCP. Continue statin therapy. Advised on heart healthy diet, regular exercise, losing weight, med compliance, and aggressive management of vascular risk factors. Follow up with Dr. Mena in 1 year. In the interim, patient will call the office with any concerns or change in symptoms. This note was generated using voice recognition software. While every effort has been made to ensure accuracy and proper personal financial representative, there may be occasional errors that could affect the content or meaning of the described symptoms. Orders: Orders AMB EKG-In Office Today I49.3 - Ventricular premature depolarization Coding Level of Care Code Est Pt Level 4 (30564) Complex visit Add On G2211 Diagnoses PVC (premature ventricular contraction) I49.3 Hypertension I10 Hyperlipidemia E78.5 Diabetes E11.9 CPT Codes EKG - CPT: 75952-[id number], Complete ([id number]) Time Spent (min) 31 Comment Time spent in reviewing the chart, test results, assessment, counseling and documentation.
--- OUTSIDE RECORDS SUMMARY | 2025-11-03 18:38 | XMS_ITS | Clinical Summary ---
Author Organization [facility] Address [address] [place], [place] [address] Phone Care Team Providers Care Deck And Hull Assembler Name Role Phone Chriss Mehta DO Primary Care Provider [phone] Social History Tobacco Use Types Packs/Day Years Used Date Smoking Tobacco: Never Assessed Comments Unknown Sex and Gender Information Value Date Recorded Sex Assigned at Not on file Legal Sex Female 9:56 AM EDT Gender Identity Not on file Sexual Orientation Not on file Plan of Treatment Not on file Medical Devices Not on file [facility] H[facility] Care Teams Deck And Hull Assembler Relationship Specialty Start Date End Date Chriss Mehta DO [email or web address] PCP - General Internal Medicine 08/15/19 Additional Source Comments The information contained in this document represents components of the legal health record. It is not the complete legal health record.[facility]
--- OUTSIDE RECORDS SUMMARY | 2025-11-03 18:38 | XMS_ITS | Patient Health Record ---
Author Organization [facility] Address [address] [place] [address] Care Team Providers Care Thrill Performer Name Role Phone Janine Chriss Primary Care Provider Adan Jhaveri [phone] Reason For Referral No Information Medications Medication SIG (Take, Route, Frequency, Duration) Notes Start Date End Date Status Omeprazole 20 MG Capsule Delayed Release TAKE 1 CAPSULE BY MOUTH EVERY DAY Oral; Duration: 30 Active Metoprolol Succinate ER 50 MG Tablet Extended Release 24 Hour TAKE 1 TABLET BY MOUTH EVERY DAY Oral; Duration: 30 Active Aspirin Adult Low Dose 81 MG Tablet Delayed Release 1 tablet Orally Once a day; Duration: 30 day(s) Active Diclofenac Sodium 75 MG Tablet Delayed Release TAKE 1 TABLET BY MOUTH TWICE A DAY FOR 15 DAYS Oral; Duration: 15 Not-Taking/PRN Ibuprofen 600 MG Tablet TAKE 1 TABLET BY MOUTH EVERY 8 HOURS NEEDED FOR PAIN Oral as needed Active metroNIDAZOLE 500 MG Tablet 1 tablet Orally Three times a day; Duration: 10 day(s) Not-Taking/P RN Simvastatin 40 MG Tablet TAKE 1 TABLET B Y MOUTH EVERY DAY Oral; Duration: 90 Active metFORMIN HCl 1000 MG Tablet TAKE 1 TABLET BY MOUTH TWICE A DAY Oral; Duration: 90 Active Lisinopril 30 MG Tablet TAKE 1 TABLET BY MOUTH EVERY DAY Oral; Duration: 90 Active Levothyroxine Sodium 50 MCG Tablet TAKE 1 TABLET BY MOUTH EVERY DAY Oral; Duration: 30 Active LORazepam 0.5 MG Tablet (Schedule IV Pancho g) TAKE 1 TABLET BY MOUTH TWICE A DAY NEEDED Oral; Duration: 5 Active Immunizations Vaccine Route Administration Date Status Comme nts Influenza Unknown 07/27/2018 Administered Social History Tobacco Use: Social History Observation Description Date Details (start date - stop date) Never Smoker NA - NA Social History Drugs/Alcohol: Social Info Question Answer Notes Alcohol Screen Did you have a drink containing alcohol in the past year? 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 [employer] Section Notes: Nonsmoker; no sig alcohol Problems Problem Type SNOMED Code ICD Code Onset Dates Problem Status W/U Status Risk Notes Problem Abnormal feces ([id number]) Positive colorectal cancer screening using Cologuard test (R19.5) Active confirmed Plan Of Treatment Future Test Test Name Order Date COLONOSCOPY 05/22/2019 Insurance Providers Payer Name Payer Address Payer Phone Subscriber Number Group Number Insured Name Patient Relationship to Insured Coverage Start Date Coverage End Date [facility] [address] [facility] [place] [phone] [id number] DAREN FISHER Self - patient is the insured Medical (General) History Medical History History ICD Code Denies [place],CVA,Lung disease,renal disease NIDDM Irregular heart beat Hypertension Hypercholesterolemia Hypothyroid Migraines Kidney stone Diverticulitis in 05/2018-treated with ou tpatient antibiotics Surgical History Surgery Date(Month/Year) Appendectomy 2007 Breast reduction 2002
== END 2025-11-03 14:37 | disposition home or self-care (01) ==
LOC: HO.HCS 13:20
PROVIDERS: PCP Nurse Practitioner Family
DX: I49.3 Ventricular premature depolarization (principal); I10 Essential (primary) hypertension; E78.5 Hyperlipidemia, unspecified; E11.9 Type 2 diabetes mellitus without complications
CPT/HCPCS: 93010; 99214; G2211

== ENCOUNTER → 2025-11-03 13:19 | Outpatient (BNVA) | payer OTHER, SELFPAY | PROVIDERS: PCP Nurse Practitioner Family | DX: I10 Essential (primary) hypertension (principal); E78.5 Hyperlipidemia, unspecified; E11.9 Type 2 diabetes mellitus without complications; I49.3 Ventricular premature depolarization; Z79.899 Other long term (current) drug therapy; Z79.84 Long term (current) use of oral hypoglycemic drugs; Z79.82 Long term (current) use of aspirin | CPT/HCPCS: 93005 ==

== ENCOUNTER 2025-11-24 09:24 | Outpatient (REF) | payer OTHER, SELFPAY ==
--- OUTSIDE RECORDS SUMMARY | 2025-11-24 11:58 | XMS_ITS | Data Portability ---
Author Organization [facility], Telehealth Patient Home Address [address] [place] [address] Assessment Encounter Date Assessment Date Assessment LastModified by Organization Details LastModified Time 02/04/2024 02/04/2024 Patient agreed and verbally consents to this audio and video Telehealth appt via a secure platform [email or web address] Not available 02/04/2024 16:16:03 Plan of Treatment Reminders Order Date Submit Date Provider Last Modified By Organization Details Last Modified Time Details Appointments None recorded. Lab CMP, serum or plasma 2023 024 [facility], [address] [place] [address], [id number], 4 16:53:10 lipid panel, serum 2023 024 [facility], [address] [place] [address], [id number], 4 16:53:10 CBC w/ auto diff 2023 024 [facility], [address] [place] [address], [id number], 4 16:53:11 hemoglobin A1c, QN, blood 2023 024 [facility], [address] [place] [address], [id number], 4 16:53:11 TSH + free T4, serum 2023 024 [facility], [address] [place] [address], [id number], 4 16:35:47 lipid panel, serum 2022 023 [facility], [address] [place] [address], [address], 4 11:08:53 TSH + free T4, serum 2022 023 [facility], [address] [place] [address], [address], 3 17:10:40 HbA1c (hemoglobi n A1c), blood 2022 023 [facility], [address] [place] [address], [address], 3 12:04:20 CMP, serum or plasma 2022 023 [facility], [address] [place] [address], [id number], 3 12:04:20 Referral general surgeon referral - pleas eval for abdominal wall hernia ( recurrent) [address] [facility] Jalil Tinoco, 10 [facility], [address], [address], 3 14:30:42 Procedures None recorded. Surgeries None recorded. Imaging US, abdominal wall 2022 023 [facility] Central Scheduling, [address] [facility] [place], [address], 3 09:08:53 Medication Orders Diflucan 150 mg tablet 2023 024 [id number], [address] [facility], [place], [address], 4 16:19:36 Jardiance 25 mg tablet 2023 024 AND[id number], [address] [place], [address], 4 16:15:53 Januvia 100 mg tablet 2022 023 [email or web address] [id number], [address] [place], [address], 4 16:14:36 celecoxib 400 mg capsule 2022 023 [email or web address] [id number], [address] [place], [address], 3 16:29:00 baclofen 20 mg tablet 2022 023 [email or web address] [id number], [address] [place], [address], 16:28:44 prednisone 10 mg tablet 2022 023 [email or web address] [id number], [address] [place], [address], 3 16:30:20 cyclobenza sarah 10 mg tablet 2022 023 [email or web address] [id number], [address] [place], [address], 16:29:40 Patient TargetsNo targets recorded. Patient Instructions Encounter Date Encounter Id Patient Instructions Last Modified By Organization Details Last Modified Time 07/11/2023 [id number] high blood pressure: care instructions Not available 07/11/2023 17:12:24 learning about high blood pressure Not available 07/11/2023 17:12:24 hypothyroidism: care instructions Not available 07/11/2023 17:12:24 Reason for Referral General Surgeon Referral for Umbilical hernia pleas eval for abdominal wall hernia ( recurrent) Referring Physician: Chriss Mehta, Internal Medicine, Encounter Date: 07/11/2023 Results Created Date Observation Date Name Description Value Unit Range Abnormal Flag Note LastModifiedBy Organization Detail LastModifiedTime 07/25/2007/24/2023 US, abdom inal wall No observ ation record ed. [address] [place], [id number], 07/27/2023 08:56:55 07/30/20 23 07/30/2023 CT, abdom en + pelvi s, w/wo contr ast No observ ation record ed. [email or web address] (Medical Records) [address] [place], [address], 07/30/2023 14:22:22 11/12/20 23 11/12/2023 XR, chest , 2 view No observ ation record ed. [facility] (Medical Records) [address] [place], [address], 11/12/2023 13:36:12 02/12/20 24 02/07/2024 myoca rdial perfu yoni study w/ wall motio n (PROC ) No observ [facility]ion [facility] ed. [email or web address] [address] [place], [address], 02/12/2024 15:16:13 03/14/20 24 03/11/2024 XR, chest , 2 view No observ ation record ed. [email or web address] Central Scheduling [address] [place], [address], 03/16/2024 20:59:22 Result Notes None recorded. Problems Name Problem SNOMED Code Status Onset Date Resolution Date Notes Provider Name and Address Organization Details Recorded Time Hypercho lesterol emia 51540908 Active 2017 Not Available [facility] 18:50:37 Hypothyr oidism 01499626 Active 2017 Not Available [facility] 18:50:37 Gastric reflux 573142128 Active 2017 Not Available [facility] 1 18:50:37 Anxiety 56871344 Active 2017 Not Available [facility] 1 18:50:37 [facility] hyperten yoni 18563527 Active 2017 Not Available [facility] 1 18:50:37 Impaired fasting glycemia 193905847 Completed 201705/09/2018 Rianna Walters NP, S [address] [place] [address], [address], [facility] 8 09:35:56 Type 2 diabetes mellitus 09174993 Active 2017 Not Available [facility] 1 18:50:37 Ventricu lar prematur e beats 29230628 Active 2017 Not Available [facility] 1 18:50:37 History of urinary stone 581288866 Active 2017 Not Available [facility] 1 18:50:37 Dysuria 38882500 Active 2021 BERNIE SANDOVAL [address] [place] [address], [address], [facility] 2 11:55:31 Divertic ulitis of colon 406109679 Active 2021 BERNIE SANDOVAL [address] [place] [address], [address], [facility] 2 12:02:42 COVID-19 415441966 Active 2021 Chriss Mehta DO [address] [place] [address], [address], [facility] 3 15:41:35 Viral gastroen teritis 980803372 Active 2022 BERNIE SANDOVAL [address] [place] [address], [address], [facility] 3 15:53:04 Candidia sis of vagina 60688380 Active 2022 Chriss Mehta DO [address] [place] [address], [address], [facility] 3 16:40:26 Low back pain 617897924 Active 2022 BERNIE SANDOVAL [address] [place] [address], [address], [facility] 3 11:19:43 Lumbar radiculo brandon 057031081 Active 2022 BERNIE SANDOVAL [address] [place] [address], [address], [facility] 3 15:06:21 Umbilica l hernia 283498465 Active 2022 Chriss Mehta DO [address] [place] [address], [address], [facility] 3 17:14:44 Spasm of back muscles 382085422 Active 2022 BERNIE SANDOVAL [address] [place] [address], [address], [facility] 3 10:29:38 Type 2 diabetes mellitus without complica tion 719502654 Active 2023 BERNIE SANDOVAL [address] [place] [address], [address], [facility] 4 16:17:04 Acute bronchit is 10146242 Active 2023 BERNIE SANDOVAL [address] [place] [address], [address], [facility] 4 09:27:13 Cough 38708059 Active 2023 Chriss Mehta DO [address] [place] [address], [address], [facility] 4 16:27:14 Problem Notes None recorded. Procedures Surgical History Date Name Laterality Status Provider Name and Address Organization Details Recorded Time 10/27/20 17 Most Recent Mammogram completed Rianna Walters NP, S [address] [place] [address], [address], [facility] 05/09/2018 09:41:26 07/23/20 15 Date of Last Pap Smear completed Rianna Walters NP, S [address] [place] [address], [address], [facility] 05/09/2018 09:39:59 Appendectomy completed Rianna lantigua NP, S [address] [place] [address], [address], [facility] 05/09/2018 09:38:01 Tubal Ligation completed Rianna dodge NP, S [address] [place] [address], [address], [facility] 05/09/2018 09:38:30 Hernia Repair completed Rianna freeman NP, S [address] [place] [address], [address], [facility] 05/09/2018 09:38:46 Imaging Results None recorded. Procedure Notes None recorded. Medical Equipment None Reported. Allergies No known drug allergies Medications Name Sig Start Date Stop Date Status Note LastModified by Organization Details LastModified Time Prescriptio n - Prior Authorizati on Request 03/07 completed Not Available Not Available Not Available cyclobenzap rine 10 mg tablet TAKE 1 TABLET TWICE A DAY FOR 14 DAYS 07/11 completed Not Available Not Available Not Available amoxicillin 500 mg capsule TAKE 1 CAPSULE BY MOUTH THREE TIMES A DAY FOR 10 DAYS 01/31 completed Not Available Not Available Not Available metformin 500 mg tablet TAKE 1 TABLET BY MOUTH TWICE A DAY active Not Available Not Available No t Available prednisone 10 mg tablet 40 mg x 3 tabs30 mg x 3 tabs20 mg x 3 tabs 10 mg x 3 days 07/11 completed Not Available Not Available Not Available cefuroxime axetil 250 mg tablet Take 1 tablet every 12 hours by oral route. 03/07 completed Not Available Not Available Not Available trazodone 50 mg tablet TAKE 1 TABLET EVERY DAY BY ORAL ROUTE FOR 30 DAYS. 01/31 completed Not Available Not Available Not Available azithromyci n 250 mg tablet TAKE 2 TABLETS BY MOUTH TODAY, THEN TAKE 1 TABLET DAILY FOR 4 DAYS DIRECTED active Not Available Not Available No t Available fluconazole 150 mg tablet 1 tablet by mouth, may repeat in 72 hours if needed active Not Available Not Available No t Available metoprolol succinate ER 50 mg tablet,exte nded release 24 hr TAKE 1 TABLET BY MOUTH EVERY DAY active Not Available Not Available No t Available hydrocodone 5 mg-acetamin ophen 325 mg tablet 07/05 completed Not Available Not Available Not Available lisinopril 20 mg tablet 1 po daily 07/05 completed Not Available Not Available Not Available ondansetron HCl 4 mg tablet 04/27 completed Not Available Not Available Not Available prednisone 20 mg tablet Take 3 tabs X3 days, 2 Tabs X3 days , 1 Tab X3 days 10/22 completed Not Available Not Available Not Available meclizine 12.5 mg tablet Take 1 tablet 3 times a day by oral route as needed for 7 days. 07/31 completed Not Available Not Available Not Available metronidazo le 500 mg tablet TAKE 1 TABLET BY MOUTH EVERY 6 HOURS FOR 10 DAYS 08/23 completed Not Available Not Available Not Available ciprofloxac in 500 mg tablet TAKE 1 TABLET BY MOUTH EVERY 12 HOURS FOR 7 DAYS 08/23 completed Not Available Not Available Not Available sulfamethox azole 800 mg-trimetho prim 160 mg tablet TAKE 1 TABLET BY MOUTH EVERY 12 HOURS FOR 7 DAYS 08/23 completed Not Available Not Available Not Available tramadol 50 mg tablet Take 1 tablet every 6 hours by oral route for 15 days. 05/20 completed Not Available Not Available Not Available acetaminoph en 500 mg tablet TAKE 2 TABLETS (1000 MG) BY MOUTH 4 TIMES A DAY NEEDED FOR PAIN 10/09 completed Not Available Not Available Not Available simvastatin 40 mg tablet TAKE 1 TABLET BY MOUTH EVERY DAY 2023 active Not Available Not Available Not Avai lable ondansetron 8 mg disintegrat ing tablet PLACE 1 TABLET TWICE A DAY BY TRANSLING UAL ROUTE NEEDED FOR 7 DAYS. 07/11 completed Not Available Not Available Not Available baclofen 20 mg tablet TAKE 1 TABLET BY MOUTH TWICE A DAY NEEDED FOR 28 DAYS 10/09 completed Not Available Not Available Not Available lorazepam 0.5 mg tablet 08/12 completed Not Available Not Available Not Available methocarbam ol 750 mg tablet Take 1 tablet 3 times a day by oral route for 10 days. 08/12 completed Not Available Not Available Not Available meclizine 25 mg tablet Take 1 tablet 3 times a day by oral route as needed for 10 days. 05/20 completed Not Available Not Available Not Available levothyroxi ne 50 mcg tablet TAKE 1 TABLET BY MOUTH EVERY DAY active Not Available Not Available No t Available simvastatin 20 mg tablet 1 PO QD 07/05 completed Not Available Not Available Not Available metformin 1,000 mg tablet TAKE 1 TABLET BY MOUTH TWICE A DAY active Not Available Not Available No t Available lisinopril 10 mg tablet 05/24 completed Not Available Not Available Not Available diclofenac potassium 50 mg tablet Take 1 tablet twice a day by oral route with meals. 03/17 completed Not Available Not Available Not Available lisinopril 30 mg tablet TAKE 1 TABLET BY MOUTH EVERY DAY active Not Available Not Available No t Available omeprazole 20 mg capsule,del ayed release TAKE 1 CAPSULE BY MOUTH EVERY DAY active Not Available Not Available No t Available diclofenac sodium 75 mg tablet,aneta yed release Take 1 tablet twice a day by oral route for 15 days. 08/12 completed Not Available Not Available Not Available codeine 10 mg-guaifene sin 100 mg/5 mL oral liquid Take 10 mL as needed by oral route at bedtime for 10 days. 04/27 completed Not Available Not Available Not Available metoprolol succinate ER 25 mg tablet,exte nded release 24 hr 1 PO QD 03/31 completed Not Available Not Available Not Available ibuprofen 600 mg tablet 02/25 completed Not Available Not Available Not Available methylpredn isolone 4 mg tablets in a dose pack TAKE 6 TABLETS ON DAY 1 DIRECTED ON PACKAGE AND DECREASE BY 1 TAB EACH DAY FOR A TOTAL OF 6 DAYS active Not Available Not Available No t Available metformin ER 500 mg tablet,exte nded release 24 hr 1 PO QD 10/25 completed Not Available Not Available Not Available doxycycline hyclate 100 mg tablet Take 2 tablets every day by oral route for 1 day. 10/07 completed Not Available Not Available Not Available naproxen 500 mg tablet TAKE 1 TABLET BY MOUTH TWICE A DAY NEEDED FOR PAIN 03/09 completed Not Available Not Available Not Available amoxicillin 875 mg-potassiu m clavulanate 125 mg tablet TAKE 1 TABLET BY MOUTH 2 TIMES A DAY FOR 10 DAYS 08/23 completed Not Available Not Available Not Available oxycodone 5 mg tablet TAKE 1 TABLET BY MOUTH EVERY 6 HOURS NEEDED FOR PAIN 03/09 completed Not Available Not Available Not Available celecoxib 400 mg capsule Take 1 capsule every day by oral route as directed for 30 days. 10/09 completed Not Available Not Available Not Available cyclobenzap rine 5 mg tablet PLEASE SEE ATTACHED FOR DETAILED DIRECTION S 01/31 completed Not Available Not Available Not Available nitrofurant oin monohydrate /macrocryst als 100 mg capsule TAKE 1 CAPSULE BY MOUTH EVERY 12 HOURS 5 DAYS MUST ADMINISTE R WITH A MEAL/FOOD 06/21 completed Not Available Not Available Not Available Boostrix Tdap 2.5 Lf unit-8 mcg-5 Lf/0.5 mL intramuscul ar syringe PHARMACY ADMINISTE RED 02/02 completed Not Available Not Available Not Available metformin ER 1,000 mg tablet,exte nded release 24 hr Take 1 tablet every day by oral route. 08/05 completed Not Available Not Available Not Available aspirin 81 mg daily active Not Available Not Available No t Available ibuprofen 600mg prn 08/12 completed Not Available Not Available Not Available simvastatin 05/10 completed Not Available Not Available Not Available lisinopril 05/10 completed Not Available Not Available Not Available Synthroid 05/10 completed Not Available Not Available Not Available Tylenol bid prn active Not Available Not Avai lable Not Available [facility] otc 04/27 completed Not Available Not Available Not Available Januvia 100 mg tablet TAKE 1 TABLET BY MOUTH EVERY DAY FOR 30 DAYS 02/03 completed Not Available Not Available Not Available metformin ER 1,000 mg 24 hr tablet,exte nded release (gastric reten.) 02/25 completed Not Available Not Available Not Available Jardiance 10 mg tablet TAKE 1 TABLET BY MOUTH EVERY DAY 02/03 completed Not Available Not Available Not Available Jardiance 25 mg tablet TAKE 1 TABLET BY MOUTH EVERY DAY DIRECTED active Not Available Not Available No t Available Vitals Date Recorded Body height Body mass index (BMI) Body weight Heart rate Oxygen saturation Systolic And Diastolic Provider Name and Address Organization Details Last Updated DateTime 3 165.74 cm 26.6 kg/m2 75591.3 7 g 84 /min 97 % 112/50 mm[Hg] Muriel Yoan [facility] 3 11:02:49 Date Recorded Body height Body mass index (BMI) Body weight Heart rate Oxygen saturation Systolic And Diastolic Provider Name and Address Organization Details Last Updated DateTime 3 165.74 cm 26.4 kg/m2 37177.7 8 g 71 /min 97 % 120/64 mm[Hg] Muriel Milton [facility] 3 16:31:32 Date Recorded Body height Body mass index (BMI) Body weight Heart rate Oxygen saturation Systolic And Diastolic Provider Name and Address Organization Details Last Updated DateTime 3 165.74 cm 26.4 kg/m2 44604.7 8 g 67 /min 97 % 122/70 mm[Hg] Muriel Milton [facility] 3 10:23:28 Date Recorded Body height Body mass index (BMI) Body weight Heart rate Oxygen saturation Systolic And Diastolic Provider Name and Address Organization Details Last Updated DateTime 3 165.74 cm 27.2 kg/m2 52637.7 4 g 60.99 /min 99 % 120/75 mm[Hg] Noemí Refugio [facility] 3 16:30:39 Social History Question Answer Notes LastModified by Organizat ion Details LastModified Time Tobacco Smoking Status [facility] 15:12:43 What Was The Date Of Your Most Recent Tobacco Screening? 10/09/2023 [email or web address] Information not available 10/09/2023 Sex: Unknown Functional Status Question Answer Note LastModified by Organization D etails LastModified Time Do you or have you ever used any other forms of tobacco or nicotine? No [email or web address] Information not available 07/11/2023 Mental Status None recorded. Family History Relationship Description Onset Age of this Age Resolved Age Notes LastModified by Organization Details LastModified Time Father Malignant neoplasm of lung 67 lamonte Not available 2017 09:36:45 Father Chronic obstructive pulmonary disease lamonte Not available 2017 09:36:56 Mother Coronary arterioscler osis CKD, NIDDM, htn lamonte Not available 05/09/2018 09:37:42 Medical History Condition Response Coronary Artery Disease N Gout N Kidney Stones Y Blood Diseases N Hyperthyroidism N Breast Cancer N Blood Transfusion N Depression N COPD N Lung Disease N Hypothyroidism Y Defects or Inherited Disease N Difficulty Swallowing N Anesthesia Complications Y Anxiety Disorder Y Meniere's disease N Muscle, Joint, or Bone Problems N Obesity Y Arthritis N Polyps N Infertility N Cancer N Stroke N Bladder or Kidney Problems N High Cholesterol Y Liver Disease N Headaches Y Fibromyalgia N Kidney Disease N Allergies/Hayfever N Heart Problems N Hospitalizations N GI Problems N Eating Disorder N Anemia N MRSA exposure Mental Illness N Ovarian Cancer N Diabetes Y Seizures/Epilepsy N Tuberculosis N Congestive Heart Failure (CHF) N Eczema N Diverticulitis N Abuse/Domestic Violence N Asthma N Hepatitis N Heart Disease N Pulmonary Embolism N Chronic Ear Infections N Hypertension Y Chicken Pox Y Autism Spectrum Disorder (ASD) N Gynecological History Statement/Question Response If Post Menopausal, Age at Menopause 52 Date of Last Pap Smear 07/23/2015 Current Control Method Tubal Ligat ion Most Recent Mammogram 10/27/2017 Obstetrics History GPAL:G 3 P 2 0 1 2 Type Value Full Term 2 Spontaneous 1 Living 2 Total 3 Immunizations Vaccine Type Date Status Note Provider Nam e and Address Organization Details Recorded Time COVID-19, mRNA, LNP-S, PF, 30 mcg/0.3 mL dose 1 completed Kerri matute [facility] 03/07/2022 10:44:29 Influenza, split virus, quadrivalent, preservative 0 completed Not Available [facility] 01/20/2021 18:50:37 Tdap 0 completed Not Available [facility] 01/20/2021 18:50:37 COVID-19, mRNA, LNP-S, PF, 30 mcg/0.3 mL dose 0 completed Not Available [facility] 01/20/2021 18:50:37 COVID-19, mRNA, LNP-S, PF, 30 mcg/0.3 mL dose 1 completed Not Available [facility] 01/20/2021 18:50:37 Past Encounters Encounter ID Performer Location Encounter Start Date Encounter Closed Date Diagnosis/Indication Diagnosis SNOMED-CT Code Diagnosis ICD10 Code Diagnosis IMO Codes Diagnosis Note [id number] Chriss Mehta [facility] [address] [facility],[place] [address] 05/10/2018 15:00:49 05/10/2018 16:45:22 Adult health examination 944945359 Z00.01 Hypercholesterolemia 136 82955 E78.00 Essential hypertension 60642727 I10 was 10 mg, f/u 3 weeks, evaluate headache relief Type 2 jake betes mellitus 81823660 E11.9 Gastroesop hageal reflux disease 741330500 K21.9 Hypothyroidism 86276760 E03.9 follow Atypical chest pain 1025 58799 R07.89 [id number] Chriss Mehta [facility] [address] [facility],[place] [address] 05/31/2018 14:40:10 05/31/2018 16:36:38 Diverticulitis 777993282 K57.92 Essential hypertension 53572390 I10 Hypercholesterolemia 136 11713 E78.00 Impaired f asting glycemia 797934524 R73.01 reviewed [id number] Chriss Mehta [facility] [address] [facility],[place] [address] 07/05/2018 13:48:55 07/05/2018 16:43:16 Headache 27081634 R51 [id number] Chriss Mehta [facility] [address] [facility],[place] [address] 07/12/2018 11:22:03 07/12/2018 12:40:01 Ventricular premature beats 07327427 I49.3 EKG 04/2018 Type 2 jake betes mellitus 78338776 E11.9 discussed Essential hypertension 26097205 I10 stable Hypothyroidism 14448761 E03.9 follow-sta ble Hypercholesterolemia 136 94001 E78.00 encourage low chol diet [id number] Chriss Mehta [facility] [address] [facility],[place] [address] 08/02/2018 08:57:12 08/02/2018 12:06:18 Ventricular premature beats 93496462 I49.3 Type 2 jake betes mellitus 04726384 E11.9 discussed Essential hypertension 41899985 I10 stable Hypothyroidism 64015064 E03.9 follow-sta ble Hypercholesterolemia 136 38425 E78.00 encourage low chol diet Screening procedure 2013 5006 Z13.9 Headache 90792646 R51 [id number] Chriss Mehta [facility] [address] [facility],[place] [address] 09/16/2018 10:39:10 09/16/2018 12:34:48 Hypothyroidism 16772622 E03.9 follow-sta ble Type 2 jake betes mellitus 43852774 E11.9 discussed Essential hypertension 83442380 I10 stable Low back pain 687985640 M54.5 Acute low back pain 2788 31872 M54.5 work note 3. call if symptoms persist/wo rsen [id number] Chriss Mehta [facility] [address] [facility], [place] [address] 10/22/2018 13:48:25 10/22/2018 16:36:16 Acute low back pain 757487246 M54.5 work note 3. call if symptoms persist/wo rsen Type 2 jake betes mellitus 27213389 E11.9 discussed, has slip to recheck labs in November Essential hypertension 24117041 I10 stable Hypothyroidism 35452529 E03.9 follow-sta ble Hypercholesterolemia 136 25688 E78.00 await labs in November [id number] Chriss Mehta [facility] [address] [facility],[place] [address] 12/03/2018 10:42:32 12/03/2018 16:50:07 Type 2 diabetes mellitus 77534666 E11.9 follow Viral syndrome 958237579 B34.9 increase fluids and rest, call if persistant Gastroenteritis 33474448 K52.9 Work note [id number] Chriss Mehta [facility] [address] [facility] [address],[place] [address] 01/24/2019 13:15:51 01/24/2019 15:02:41 Type 2 diabetes mellitus 94865843 E11.9 follow Essential hypertension 71196195 I10 stable Hypothyroidism 33594496 E03.9 follow-sta ble Hypercholesterolemia 136 40356 E78.00 Fall due t o slipping on ice or snow [id number] W00.0XXD ice to hip PRN Viral syndrome 022575780 B34.9 increase fluids and rest, call if persistant [id number] Chriss Mehta [facility] [address] [facility],[place] [address] 02/25/2019 13:40:02 02/25/2019 16:30:28 Acute sinusitis 64844027 J01.90 Cough 12884242 R05 Essential hypertension 49573977 I10 stable Hypercholesterolemia 136 31962 E78.00 improved 11308 Chriss Mehta [facility] [address] [facility],[place] [address] 03/07/2019 14:47:07 03/07/2019 15:52:31 Ventricular premature beats 55551867 I49.3 cont. metoprolol Type 2 jake betes mellitus 43993599 E11.9 follow Essential hypertension 26363382 I10 stable Hypothyroidism 99567967 E03.9 follow-sta ble Hypercholesterolemia 136 99724 E78.00 improved [id number] Chriss Mehta [facility] [address] [facility],[place] [address] 03/17/2019 09:37:11 03/17/2019 10:41:41 Postural dizziness 469721455 R42 reviewed labs Ventricula r premature beats 36861606 I49.3 cont. metoprolol 13093 Chriss Mehta [facility] [address] [facility],[place] [address] 03/31/2019 10:34:10 03/31/2019 12:27:30 Cramp 30818014 R25.2 cont. heat Ventricula r premature beats 73073729 I49.3 cont. metoprolol , await holter results Type 2 jake betes mellitus 67267320 E11.9 follow Essential hypertension 65811147 I10 stable [id number] Chriss Mehta [facility] [address] [facility],[place] [address] 04/07/2019 11:14:21 04/07/2019 12:07:45 Essential hypertension 31593661 I10 stable Ventricula r premature beats 65321458 I49.3 cont. metoprolol Type 2 jake betes mellitus 70384581 E11.9 follow Hypothyroidism 14196845 E03.9 follow-sta ble Hypercholesterolemia 136 60644 E78.00 improved Intermitte nt palpitations 004020879 R00.2 hold metoprolol for test Chriss Mehta [facility] [address] [facility] [address] [address] 04/22/2019 13:44:14 04/22/2019 14:25:34 Essential hypertension 32849597 I10 stable Ventricula r premature beats 32226792 I49.3 seeing cardio stress test planned Thoracic back pain 57856 8004 M54.6 likely muscular strain/spa sm Chriss Mehta [facility] [address] [facility] [address] [address] 05/06/2019 14:45:55 05/06/2019 15:43:37 Essential hypertension 50190799 I10 stable Thoracic back pain 25070 8004 M54.6 will get xr of tspine continue heat is its helpful d'c all other nsaids ok to take tylenol 54604 Chriss Mehta [facility] [address] [facility] [address],[place] [address] 06/02/2019 13:50:19 06/02/2019 15:22:03 Migraine 04995298 G43.909 sounds like migraines, but will have her see neuro as she was supposed to f/u with them in the past for these sx Palpitations 76509711 R0 0.2 waiting for f/u testing Type 2 jake betes mellitus 48281227 E11.9 follow Essential hypertension 95390305 I10 stable Hypothyroidism 39419774 E03.9 follow-sta ble Hypercholesterolemia 136 98421 E78.00 [id number] Chriss Mehta [facility] [address] [facility] [address],[place] [address] 08/12/2019 15:36:05 08/12/2019 16:48:43 Lightheadedness 576254320 R42 apparently had an in depth cardiac work up in march of 2019, but do not have any of these results lightheade dness is reproducib le with neck flexion ? vertebroba silar artery compressio n? also has associated blurry vision and weakness during episodes of lightheade dness Migraine 45643263 G43.90 9 never had consult will investigat e issues with the referral Palpitations 83552077 R0 0.2 seeing cardio for this will obtain cardiac work up records Vertebroba silar artery syndrome 741661230 G45.0 [id number] Chriss Mehta [facility] [address] [facility] [facility] [place] [address] 09/15/2019 10:48:25 09/15/2019 11:57:40 Tick bite without infection 722450865 T14.8XXA [id number] Chriss Mehta [facility] [address] [facility],[place] [address] 10/07/2019 14:44:09 10/07/2019 15:37:22 Vertigo 250697240 R42 ? meniere's recommend seeing ENT may need audiologic exam recommend low sodium diet Type 2 jake betes mellitus 08250844 E11.9 follow Essential hypertension 74006071 I10 stable [id number] Chriss Mehta [facility] [address] [facility],[place] [address] 01/21/2020 10:55:49 01/21/2020 11:58:17 Type 2 diabetes mellitus 45020455 E11.9 follow Essential hypertension 44655354 I10 stable Community acquired pneumonia 023374055 J18.9 mucinex dm during the day call if sx worsen or do not improve in 1-2 weeks [id number] Chriss Mehta [facility] [address] [facility],[place] [facility] [place] [address] 02/20/2020 12:13:50 02/23/2020 16:45:13 Generalized acute body pains 840047294 R52 the pt has been experienci ng symptoms of GI discomfort including nausea, upset stomach, diarrhea aswell as generalize d body aches for the past two days 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 and she has been in direct contact with said patient as well as her other co-workers who have been tested as well her daughter works in the ER is also showing symptoms of COVID-19 and is being test today, she has been in direct contact with her daughter based on this she has been advised to do a two week self-quara ntine and not return to work until asymptomat ic working with her place of work as they are not allowing her to miss work have sent them a work note will continue to keep pt updated Pt agrees and understand s Nausea 044751461 R11.0 Diarrhea 94918397 R19.7 89441 Chriss Mehta [facility] [address] [facility],[place] [address] 02/21/2020 11:23:29 02/23/2020 14:37:45 Diarrhea 58417431 R19.7 cont her otc conserv tx instructio ns re this explained at length and with details towards self protection apparel etc as discussed earlier [id number] Chriss Mehta [facility] [address] [facility],[place] [address] 03/01/2020 10:11:44 03/01/2020 12:23:18 Type 2 diabetes mellitus 92406878 E11.9 stable will be check and will see her on fri Nausea, vo miting and diarrhea 6503377 R11.2 states she is constantly nauseous and is still having diarrhea Cough 11898048 R05 states she has been coughing for the last 4 days had a neg covid test no upper sx having deep cough and is coughing all night cipro 500 35406 Chriss Mehta [facility] [address] [facility],[place] [address] 03/26/2020 11:45:20 03/26/2020 14:25:13 Acute sinusitis 36312562 J01.90 based on symptom profile it is the patient is most likely suffering from an acute sinusitis infection will treat empiricall y with Z-lashawn (want to avoid augmentin as she has just recently recovered from GI illness and do not want to cause her any possible GI upset) as I cannot see her in office patient agrees with this and understand s [id number] Chriss Mehta [facility] [address] [facility],[place] [address] 04/27/2020 10:04:35 04/27/2020 11:24:04 Adult health examination 629211180 Z00.00 doing well overall Essential hypertension 27679260 I10 chk cmp Hypothyroidism 70953867 E03.9 will need to chk tsh Type 2 jake betes mellitus 21454120 E11.9 stable will be check and will see her on fri will chk a1c Urinary tr act infectious disease 21681932 N39.0 73599 Chriss Mehta [facility] [address] [facility],[place] [address] 11/01/2020 16:06:09 11/01/2020 17:05:58 Type 2 diabetes mellitus 63335563 E11.9 stable will be check and will see her on fri will chk a1c Essential hypertension 21493301 I10 chk cmp but is doing ok Hypothyroidism 76042772 E03.9 will need to chk tsh 93417 Chriss Mehta [facility] [address] [facility],[place] [address] 11/09/2020 11:05:12 11/09/2020 12:12:41 Abdominal pain 19249648 R10.9 possible failed hernia repair causing issue, will evaluate for hernia vs diverticul itis vs colitis Umbilical hernia 5870451 07 K42.9 the patient reports that she has a hernia repair about 12 years ago, possible the repair failed has had appendix removed [id number] Chriss Mehta [facility] [address] [facility],[place] [address] 11/23/2020 11:06:19 11/23/2020 12:08:05 Acute right otitis media 564475329 H66.91 presentati on and symptoms sound like ear infection will send abx Nasal congestion 7234363 0 R09.81 the patient tested negative twice for COVID the patient may have combo sinus and ear infection Headache 78014136 R51.9 on the right side with the ear infection 51391 Chriss Mehta [facility] [address] [facility],[place] [address] 02/02/2021 08:53:47 02/02/2021 09:30:14 Type 2 diabetes mellitus 56824890 E11.9 a1c is 6.8 is stable but im worried about her stress Essential hypertension 89467053 I10 chk cmp but is doing ok will keep following given her stress Hepatitis C screening 41 9849317 Z11.59 Hypothyroidism 10983676 E03.9 will need to chk tsh Anxiety 48899571 F41.9 assoc with stress from family 76043 Chriss Mehta [facility] [address] [facility] [address],[place] [address] 02/16/2021 09:33:39 02/16/2021 10:42:13 Type 2 diabetes mellitus 07903417 E11.9 a1c is 6.8 is stable but im worried about her stress still hasnt been seen by her eye dr going to dentist now Hypothyroidism 20101137 E03.9 will need to chk tsh Essential hypertension 52675570 I10 chk cmp but is doing ok will keep following given her stress Depression screening 171 455566 Z13.31 59021 Chriss Mehta [facility] [address] [facility] [address],[place] [address] 05/20/2021 08:47:55 05/20/2021 09:28:19 Hypercholesterolemia 26133825 E78.00 excellent lab this past test LDL is 86 HDL is 43 Hypothyroidism 43839914 E03.9 tsh is excellent no change in med dose Type 2 jake betes mellitus 84699908 E11.9 a1c is 7.0 and was 6.8 is stable but im worried about her stress but it looks like may retire in june still hasnt been seen by her eye dr going to dentist now Essential hypertension 33856091 I10 excellent cmp and her bp is doing ok will keep following given her stress 91627 Chriss Mehta [facility] [address] [facility] [address],[place] [employer] [place] [address] 06/21/2021 09:42:57 06/21/2021 10:17:39 Lumbar radiculopathy 881064026 M54.16 will fu with neuro referral and [place] paperworkw ill call patient when its ready Lumbago with sciatica 20 7492789 M54.42 will fu with paperworku se APAP PRN, has oxy script from hospital to use PRNwill call if pain worsens [id number] Chriss Mehta DO [facility] [address] [facility] [address] [address] 08/22/2021 08:12:12 08/22/2021 11:05:56 Essential hypertension 66465754 I10 excellent cmp and her bp is doing ok will keep following given her stress Type 2 jake betes mellitus 85542599 E11.9 a1c is pending and was 7.0 and was 6.8 is stable but im worried about her stress but it looks like may retire in june still hasnt been seen by her eye dr going to dentist now [id number] Chriss Mehta DO [facility] [address] [facility], [address] [facility] [place] [address] 11/21/2021 08:46:22 11/21/2021 14:01:55 Essential hypertension 40995694 I10 excellent cmp and her bp is doing ok will keep following given her stressbp at home is stable Hypothyroidism 24636757 E03.9 tsh is excellent no change in med dose will rechk, tsh lab next visit Type 2 jake betes mellitus 67490221 E11.9 a1c is pending and was 7.1 and was 6.8 is stable but im worried about her stress but it looks like may retire in june still hasnt been seen by her eye dr but now retired so she must Gastric reflux 672547848 K21.9 has had recent flare up will be taking two tabs of ppi and ;do this for several weeks then back to one [id number] Chriss Mehta DO [facility] [address] [facility] [address] [address] 01/03/2022 10:40:12 01/03/2022 13:59:16 Type 2 diabetes mellitus 00636668 E11.9 a1c is pending and was 7.1 and was 6.8 is stable but im worried about her stress but it looks like may retire in june still hasnt been seen by her eye dr but now retired so she must Acute otitis media 85433 03 H66.93 also told pt we will treat but she needs to rechk for covid even though initial test last week was negative [id number] Chriss Mehta DO [facility] [address] [facility] [address],[place] [address] 01/31/2022 14:30:36 02/01/2022 10:14:29 Gastroesophageal reflux disease 565408954 K21.9 will increase dosage to 40 mg of omeprazole Essential hypertension 30461969 I10 BP is excellent today Anxiety 09440507 F41.1 stable Type 2 jake betes mellitus 45196140 E11.9 discussed diet control [id number] Chriss Mehta DO [facility] [address] [facility] [address],[place] [address] 03/07/2022 14:36:25 03/08/2022 08:06:45 Hypothyroidism 49850532 E03.9 tsh is excellent no change in med dose will rechk, tsh lab next visit Type 2 jake betes mellitus 36697415 E11.9 a1c is 7.4 and was 7.1 and was 6.8 is stable but im worried about her stress but it looks like may retire in june still hasnt been seen by her eye dr but now retired so she must Essential hypertension 29046332 I10 excellent cmp and her bp is doing ok will keep following given her stressbp at home is stable [id number] BERNIE SANDOVAL [facility] [address] [facility] [address] [address] 07/11/2022 11:17:50 07/11/2022 14:22:46 Diverticulitis of colon 858140394 K57.32 will fu with cipro dose for 7 days; stop bactrim Type 2 jake betes mellitus 48098457 E11.9 discussed diet control Essential hypertension 19874146 I10 BP is excellent today 75301 Chriss Mehta DO [facility] [address] [facility] [address],[place] [address] 08/23/2022 14:32:33 08/23/2022 16:26:33 Type 2 diabetes mellitus 05581581 E11.9 a1c is 8.0 and was 7.4 and was 7.1 and was 6.8 is stable but im worried about her stress but it looks like may retire in june still hasnt been seen by her eye dr but now retired so she must Anxiety 85765330 F41.1 assoc with stress from family Essential hypertension 14590393 I10 excellent cmp and her bp is doing ok will keep following given her stressbp at home is stable [id number] Chriss Mehta DO [facility] [address] [facility] [address],[place] 7 01/03/2023 12:05:13 01/03/2023 16:39:43 Viral gastroenteritis 361531992 A08.39 can use PRN for nauseacont inue liquid dietcan try PO challenge tomorrow with bland food 59532 Chriss Mehta [facility] [address] [facility] 7 01/24/2023 14:56:37 01/24/2023 16:26:32 Hypothyroidism 48529419 E03.9 tsh is excellent no change in med dose will rechk, tsh lab next visit Type 2 jake betes mellitus 41515452 E11.9 a1c is down to 7.6 with jardiance 10 mg was 8.0 and was 7.4 and was 7.1 and was 6.8 is stable but im worried about her stress but it looks like may retire in june still hasnt been seen by her eye dr but now retired so she must Essential hypertension 34737365 I10 excellent cmp and her bp is doing ok will keep following given her stressbp at home is stable Gastric reflux 244637675 K21.9 has had recent flare up will be taking two tabs of ppi and ;do this for several weeks then back to one [id number] Chriss Mehta DO [facility] [address] [facility],[place] [facility] [place] 7 03/09/2023 10:54:50 03/13/2023 08:54:06 Low back pain 659768105 M54.59 agreed to try prednisone and will give her another course of cyclobenza sarah 34400 Chriss Mehta [facility] [address] [facility] [address],[place] [address] 07/11/2023 15:54:11 07/13/2023 14:30:40 Essential hypertension 07202286 I10 excellent cmp and her bp is doing ok will keep following given her stressbp at home is stable Hypercholesterolemia 136 47863 E78.00 excellent lab this past test LDL is 86 HDL is 43 Hypothyroidism 32108154 E03.9 tsh is excellent no change in med dose will rechk, tsh lab next visit Type 2 jake betes mellitus 91345704 E11.9 a1c is down to 7.6 with jardiance 10 mg was 8.0 and was 7.4 and was 7.1 and was 6.8 is stable but im worried about her stress but it looks like may retire in june still hasnt been seen by her eye dr but now retired so she must Umbilical hernia 4250525 07 K42.9 10083 Chriss Mehta [facility] [address] [facility], [place] [address] 07/31/2023 09:48:35 07/31/2023 16:20:01 Spasm of back muscles 989474914 M62.830 will start with celecoxib and baclofen [id number] Chriss Mehta [facility] [address] [facility], [employer] [facility] [place] [address] 10/09/2023 15:41:50 10/09/2023 17:08:18 Essential hypertension 08920677 I10 excellent cmp and her bp is doing ok will keep following given her stressbp at home is stable Hypercholesterolemia 136 24492 E78.00 excellent lab this past test LDL is 86 HDL is 43 Hypothyroidism 92452916 E03.9 tsh is excellent no change in med dose will rechk, tsh lab next visit Type 2 jake betes mellitus 81942806 E11.9 a1c is stable at 7.4 but having yeast infections since on jardiance will change to januvia and see how it works out prior: a1c is down to 7.6 with jardiance 10 mg was 8.0 and was 7.4 and was 7.1 and was 6.8 is stable but im worried about her stress but it looks like may retire in june still hasnt been seen by her eye dr but now retired so she must [id number] DO [facility] [address] [facility],[place] [address] 02/04/2024 09:24:37 02/04/2024 16:27:27 Type 2 diabetes mellitus without complication 744641616 E11.9 will up her jardiance, prefers to be on itmetformi n makes her illwill try to get her A1c down Essential hypertension 22484168 I10 excellent cmp and her bp is doing ok will keep following given her stressbp at home is stable Hypothyroidism 50071828 E03.8 stable Candidiasis of vagina 72 097626 B37.31 higher risk for fungal infection due to jardiance Health Concerns Section Related Observation LastModified by Organization Detai ls LastModified Time None Recorded Concern Status LastModified by Organization Details LastModified Time None Recorded Advance Directives Directive None Recorded Payers Insurance Date Sequence Insurance Name Policy Number Policy Hernandez Covered Member ID Hernandez Member ID Guarantor Name 02/01/[address] [place] [address] [id number] Darleen Thompson [id number] Darleen Thompson Notes Date Note Type Note Provider Name a nd Address Organization Details Recorded Time 3 text/html ROS as noted in the HPI ER f/u the patient reports that she got a massage for her birthday that they pressed on her back; triggered her pain and sciatic painthe patient did report that she told the lady to not press on her back but they did anywaythe patient reports that she got oxycodone which made her drowsywants to try pred and msk relaxer againdoes not want narcotics (make her very ill) was told she could see pain management for an injection but will try oral therapy firstshe will update me next week with how she is feeling BERNIE SANDOVAL [address] [place], [address], [facility] 03/09/2023 11:28:23 3 text/html here for rechk and is doing ok overallrelates that she has noted that her left abdomen hernia might be returning having a prob with this and is noted to have had surgery about 18 years ago Chriss Mehta DO [address] [place], [address], [facility] 07/11/2023 17:17:51 3 text/html ROS as noted in the HPI c/o side pain the patient reports that she was leaning on her side on Sundaystarted getting sharp shooting pain up from the mid thoracic to her side left went to ERCT was negative which is goodlab work and urine was both wnl ibuprofen helped most likely a msk sprain due to degenerative changes in her thoracic spinehas hx of spinal issues start of celecoxib and baclofen BERNIE SANDOVAL [address] [place], [address], [facility] 07/31/2023 10:35:36 3 text/html Care Management - DiabetesReported by PatientHPIFor self care, patient reportsnot seeing eye doctor yearly for dilated eye exambut reportshemoglobin a1c goal: <7,ldl levels have been: 100-120,ldl goal: ,checks blood pressure at home (range ____),blood pressure goal: , andhemoglobin a1c levels have been: 7-8. For prognosis, patient reportsexpected outcome: stabilizeandprognosis: moderate.ROS as noted in the HPI here for taurusk and is doing ok overallrelates her diet is not always the rilxv8d is 7.4 and is the same as the della told her she should be seen every 3 mo Chriss Mehta DO [address] [facility], [place], [address], [facility] 10/09/2023 17:04:45 4 text/html ROS as noted in the HPI 2 mos f/u The patient is participating in this appointment via telemedicine communication with a phone call/video calling service (Doxy)The patient consents to use of these platforms in place of an in-person appointment due to either sick symptoms the patient is presenting with or current office closure due to COVID exposure in order to keep our office staff and patients safe T2DM: needs lab work redrawnstop shwetha, shelbie jardiancewould like to get her off metformin, gives her a lot of diarrhea HTN: stable per patient Hypothyroidism: stable has f/u with cardiology, the patient will be doing a stress echo on 02/07/24as original f/u with cardio in June, will be moved if needed adjusted medication fu in 3 mos with recheck BERNIE SANDOVAL [address] [place] [address], [place], [address], [facility] 02/04/2024 16:24:00 OBGyn Episode No OBEpisode recorded.
--- OUTSIDE RECORDS SUMMARY | 2025-11-24 11:58 | XMS_ITS | Clinical Summary ---
Author Organization [facility] Address [address] [place], [place] [id number] Phone Care Team Providers Care Call Center Operator Name Role Phone Chriss Mehta DO Primary Care Provider [phone] Social History Tobacco Use Types Packs/Day Years Used Date Smoking Tobacco: Never Assessed Comments Unknown Sex and Gender Information Value Date Recorded Sex Assigned at Not on file Legal Sex Female 9:56 AM EDT Gender Identity Not on file Sexual Orientation Not on file Plan of Treatment Not on file Medical Devices Not on file Insurance [facility] H[facility] Care Teams Call Center Operator Relationship Specialty Start Date End Date Chriss Mehta DO [email or web address] PCP - General Internal Medicine 08/15/19 Additional Source Comments The information contained in this document represents components of the legal health record. It is not the complete legal health record.[facility]
--- OUTSIDE RECORDS SUMMARY | 2025-11-24 11:58 | XMS_ITS | Patient Health Record ---
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[employer] Section Notes: Nonsmoker; no sig alcohol Problems Problem Type SNOMED Code ICD Code Onset Dates Problem Status W/U Status Risk Notes Problem Abnormal feces (758248134) Positive colorectal cancer screening using Cologuard test (R19.5) Active confirmed Plan Of Treatment Future Test Test Name Order Date COLONOSCOPY 05/22/2019 Insurance Providers Payer Name Payer Address Payer Phone Subscriber Number Group Number Insured Name Patient Relationship to Insured Coverage Start Date Coverage End Date [facility] [address] [facility] [place] [phone] [id number] DAREN FISHER Self - patient is the insured Medical (General) History Medical History History ICD Code Denies [place],CVA,Lung disease,renal disease NIDDM Irregular heart beat Hypertension Hypercholesterolemia Hypothyroid Migraines Kidney stone Diverticulitis in 05/2018-treated with ou tpatient antibiotics Surgical History Surgery Date(Month/Year) Appendectomy 2007 Breast reduction 2002
[2025-11-24 13:44] LABS: MANUAL DIFF FLAG NO
[2025-11-24 13:59] LABS: Hematocrit 47.6 % (37.0-47.0); Hemoglobin 14.8 g/dl (12.0-16.0); Imm Gran Abs Auto 0.01 X10*3/uL (0.00-0.03); Imm Gran Pct Auto 0.1 % (0.0-0.4); Lymphocytes Absolute Auto 3.0 X10*3/uL (1.2-4.9); Mean Corpuscular HGB Conc 31.1 g/dl (31.0-35.0); Mean Corpuscular Hemoglobin 29.2 pg (27.0-33.0); Mean Corpuscular Volume 94.1 fL (80.0-98.0); NRBC Abs Auto 0.000 X10*3/uL (0.0-0.012); NRBC Pct Auto 0.0 /100WBC (0.0-0.2); Platelet Count 275 X10*3/uL (160-400); Red Blood Count 5.06 X10*6/uL (4.20-5.50); White Blood Count 7.5 X10*3/uL (4.8-10.8)
[2025-11-24 14:17] LABS: Appearance Urine Clear; Glucose Urine UA >=1000 mg/dL (Negative); PH 5.5 (5.0-9.0); Specific Gravity - Urine >= 1.030 (1.005-1.025); UMIC TRIGGER UACC YES
[2025-11-24 14:36] LABS: Alanine Aminotransferase 26 U/L (0-31); Albumin Level 4.5 g/dL (3.5-5.0); Alkaline Phosphatase 67 U/L (39-117); Anion Gap 11 (12-20); Aspartate Amino Transferase 33 U/L (5-31); Blood Urea Nitrogen 10 mg/dL (9-16); Calcium 10.2 mg/dL (8.4-10.2); Carbon Dioxide 28 mmol/L (22-29); Chloride 107 mmol/L (96-108); Cholesterol 120 mg/dL (<200); Estimated Glomerular Filt Rate > 60; HDL Cholesterol 49 mg/dL (>40); Potassium 4.3 mmol/L (3.3-5.1); Sodium 142 mmol/L (135-145); Total Protein 7.7 g/dL (6.5-8.0); Triglycerides 82 mg/dL (<150)
[2025-11-24 15:08] LABS: Microalbum/Creatinine Ratio Ur 6.1 ug/mg cr (<30)
== END 2025-11-24 09:25 | disposition home or self-care (01) ==
LOC: HO.HMGCLDS 09:24
PROVIDERS: PCP Nurse Practitioner Family; Visit Provider Nurse Practitioner Family
DX: E11.9 Type 2 diabetes mellitus without complications (principal)
CPT/HCPCS: 36415; 80053; 80061; 81001; 82043; 82570; 84443; 85025